=== PATIENT | female | born 1945 | race Caucasian/White ===

== ENCOUNTER → 2016-07-20 | Outpatient (REF) | payer MEDICARE ==
[~2016-07-20] MED LIST: /ACETCOD3T PO; /DEXA4TA OR; /PANT40TA OR; /TRIM10TA OR; /WARF25TA OR; /WARF5TA; /WARF5TA OR; ACET-654 PO; ACET500T2; ACET65TA OR; ACYC200CA PO; ALBUTEROL INH; AMBI5TAB OR; AMOX500T PO; ASPI81CH PO; BACITAB OR; BACITAB PO; BACITAB3 PO; BACT400T PO; BACT800T5 PO; CAPT12.5 PO; CEFT500T OR; COUM1TAB17 PO; CYCL1CAP2; DECADRON PO; DEMA100T; DEMA100T OR; DEMA100T PO; DEXA4TA; ELMIRON; ENABLEX OR; ENABLEX PO; GLIM1TAB OR; GLIMEPIRIDE PO; IMOD2CHW PO; K-TA10TA2 PO; KLOR10TA; LEVA250T; LEVO75TA2; LEVO75TA2 OR; LEVO75TA4 PO; MAAL600C PO; METO25TA PO; MORP20SO OR; MULTIVIT OR; MULTTAB PO; ONDA1TAB15 PO; PENT10CA OR; PERC5TAB6 PO; POTA20TA OR; POTA20TA2 OR; POTA20TA4 PO; POTASSIUM CITRATE1 PO; PREV30CA6 PO; PROCHLORPERAZINE PO; PROLOPRIM OR; PROT1TAB2 PO; RANI300T OR; RANITIDINE OR; SENO8.6T10 PO; SPIR25TA2; SPIR25TA2 OR; SPIR25TA2 PO; SPIROLACTONE OR; SYNT75TA OR; THERGRAN; THERGRAN OR; TORS100T PO; TYLE325T5 PO; UROCTAB2 PO; VALT500T OR; VELC3.5I; VIT D 2000 OR; VITAMIN; VITAMIN D; VITAMIN PO; WARF-18 PO; WARF1TAB PO; ZARO2.5T; ZEBE5TAB; ZEBE5TAB OR; ZOFR20TA PO; ZOFR4TAB3 PO; [UNRECOGNIZED DRUG - CODE] OR; [UNRECOGNIZED DRUG - REMARK]; [UNRECOGNIZED DRUG - REMARK]; [UNRECOGNIZED DRUG - REMARK]
[2016-07-20 12:14] LABS: MEAN CORPUSCULAR HEMOGLOBIN 31.1 pg (27.0-33.0); MEAN CORPUSCULAR HGB CONC 33.2 g/dl (32.0-36.5); MEAN CORPUSCULAR VOLUME 93.5 fl (80.0-96.0); WHITE BLOOD COUNT 3.5 K/mm3 (4.0-10.0)
[2016-07-20 12:23] LABS: ALBUMIN 3.7 GM/DL (3.2-5.2); ALBUMIN/GLOBULIN RATIO 1.19 (1.00-1.93); BILIRUBIN,TOTAL 0.4 MG/DL (0.2-1.0); CALCIUM LEVEL 8.6 MG/DL (8.8-10.2); CREATININE FOR GFR 1.18 MG/DL (0.55-1.02); FREE T4 1.26 NG/DL (0.76-1.46); GLOMERULAR FILTRATION RATE 48.5 (>45); POTASSIUM SERUM 4.4 MEQ/L (3.5-5.1); TOTAL PROTEIN 6.8 GM/DL (6.4-8.2)
== END ==
LOC: M SFHCPLAZ 09:16
PROVIDERS: ATTEND Nurse Practitioner Family
DX: N18.3 Chronic kidney disease, stage 3 (moderate) (principal); I13.0 Hypertensive heart and chronic kidney disease with heart failure and stage 1 through stage 4 chronic kidney disease, or unspecified chronic kidney disease; I50.9 Heart failure, unspecified; E03.9 Hypothyroidism, unspecified

== ENCOUNTER → 2016-07-27 | Outpatient (REF) | payer MEDICARE ==
[2016-07-27 14:36] LABS: IMMUNOGLOBULIN G 999 MG/DL (681-1648); TOTAL PROTEIN 6.9 GM/DL (6.4-8.2)
[2016-07-28 10:44] LABS: ALBUMIN % 56.5 % (55.8-66.1); GAMMA GLOBULIN % 13.3 % (11.1-18.8)
[2016-07-29 00:09] LABS: FREE KAPPA LIGHT CHAINS SERUM 54.61 mg/L (3.30-19.40); FREE LAMBDA LIGHT CHAINS SERUM 17.02 mg/L (5.71-26.30); KAPPA/LAMBDA RATIO SERUM 3.21 (0.26-1.65)
== END ==
LOC: M LAB REF 13:10
PROVIDERS: ATTEND Internal Medicine Medical Oncology
DX: C90.00 Multiple myeloma not having achieved remission (principal)

== ENCOUNTER → 2016-09-09 | Outpatient (CLI) | payer MEDICARE ==
--- NOTE | 2016-09-09 10:27 | REPMRS ---
Patient History The patient states she had a clinical breast exam in April 2016. Benign radio exam breast specimen of the left breast, May 21, 2014. Benign stereotatic loc for ea lesion of the left breast, May 21, 2014. Digital Mammo Screening Bilat: September 09, 2016 - Exam #: [id number] Bilateral CC and MLO view(s) were taken. Technologist: Estephanie Turner, Technologist Prior study comparison: March 29, 2014, left breast digital mammo diagnostic unilateral performed at [facility]. March 07, 2014, bilateral digital mammo screening bilat performed at [facility]. FINDINGS: There are scattered fibroglandular densities. There has been no change in the appearance of the mammogram from the prior studies. There is a mild amount of residual fibroglandular tissue which is fairly symmetric. There is no interval development of dominant mass, architectural distortion, or clustered microcalcification suggestive of malignancy. ASSESSMENT: BI-RADS/ACR category 1 mammogram. Negative. Recommendation Routine screening mammogram in 1 year (for women over age 40). This mammogram was interpreted with the aid of an FDA-approved computer-aided dectection system. Electronically Signed By: Alexis Alex MD 09/09/16 [id number]
== END ==
LOC: M RAD 09:16
PROVIDERS: ATTEND Obstetrics & Gynecology Gynecology
DX: Z12.31 Encounter for screening mammogram for malignant neoplasm of breast (principal)

== ENCOUNTER → 2016-11-30 | Outpatient (REF) | payer MEDICARE ==
[~2016-11-30] MED LIST changes: -ACET-654 PO; +ACET1TAB17 PO; +ACET50TAOT PO; -BACITAB3 PO; +ESTR1CRE PV; +MYRB50TA PO; +NYST1POW9 TOP; -ONDA1TAB15 PO; +ONDA4TAB5 PO; +PERC5TAB12 PO; -PERC5TAB6 PO; +RANI15TA PO
[2016-11-30 14:05] LABS: IMMUNOGLOBULIN G 958 MG/DL (681-1648); IMMUNOGLOBULIN M 24.1 MG/DL (40-230)
[2016-12-03 10:12] LABS: FREE KAPPA LIGHT CHAINS SERUM 85.3 mg/L (3.3-19.4); FREE LAMBDA LIGHT CHAINS SERUM 14.7 mg/L (5.7-26.3); KAPPA/LAMBDA RATIO SERUM 5.8 (0.26-1.65)
[2016-12-03 10:34] LABS: ALBUMIN 4.03 GM/DL (3.29-5.55); ALBUMIN % 57.5 % (55.8-66.1); GAMMA GLOBULIN % 13.5 % (11.1-18.8)
== END ==
LOC: M LAB REF 12:24
PROVIDERS: ATTEND Internal Medicine Medical Oncology
DX: C90.00 Multiple myeloma not having achieved remission (principal)

== ENCOUNTER → 2016-12-04 | Outpatient (REF) | payer MEDICARE ==
[2016-12-04 12:12] LABS: MEAN CORPUSCULAR HGB CONC 34.4 g/dl (32.0-36.5); MEAN CORPUSCULAR VOLUME 93.1 fl (80.0-96.0); RED CELL DISTRIBUTION WIDTH 13.7 % (11.5-14.5); WHITE BLOOD COUNT 4.2 K/mm3 (4.0-10.0)
[2016-12-04 12:30] LABS: CALCIUM LEVEL 8.8 MG/DL (8.8-10.2); CREATININE FOR GFR 1.25 MG/DL (0.55-1.02); GLOMERULAR FILTRATION RATE 45.4 (>45); POTASSIUM SERUM 3.9 MEQ/L (3.5-5.1)
== END ==
LOC: M SFHCPLAZ 09:51
PROVIDERS: ATTEND Family Medicine
DX: Z01.818 Encounter for other preprocedural examination (principal); C90.00 Multiple myeloma not having achieved remission; N18.3 Chronic kidney disease, stage 3 (moderate)

== ENCOUNTER → 2016-12-31 | Outpatient (CLI) | payer MEDICARE ==
[~2016-12-31] MED LIST changes: +GASTROGRAFIN SOLUTION 30ML (Q9963) As Ordered ONE; +ISOVUE-370 76% 100ML VIAL (Q9967) As Ordered ONE
--- NOTE | 2016-12-31 14:52 | REP ---
REASON FOR EXAM: Left adnexal cystic structures. Latest prior for comparison is a noncontrast-enhanced examination of 04/23/2015. Contrast utilized today: 100 mL Isovue-370. There are chronic changes in the lung bases, status quo. There are surgical clips in the gallbladder fossa from previous cholecystectomy. The liver and spleen are within normal limits. The pancreas, adrenal glands, and kidneys are within normal limits. The abdominal aorta is within normal limits. There are multiple borderline para-aortic lymph nodes which are unchanged from the prior exam. There is no significant change in appearance of bowel loops or their mesenteries. There is no free fluid or free air. CT PELVIS: There is a cluster of low-density masses seen in the left adnexa all having water Hounsfield unit readings and all essentially unchanged from the prior CT. There is no free fluid or free air. There is no pelvic sidewall adenopathy. The pelvic bowel loops are unremarkable. Bone window technique throughout the exam, shows the bones to be demineralized with multiple low-density lesions scattered throughout the axial skeleton. These are essentially unchanged in appearance when compared to the prior exam, but with some areas having increased peripheral sclerosis. IMPRESSION: There is no evidence of acute intra-abdominal or intrapelvic disease. Chronic changes and findings as described above. Skeletal lesions consistent with the patient's history of multiple myeloma. Signed by Roderick Tan DO 12/31/2016 04:27 P
== END ==
LOC: M RAD 11:07
PROVIDERS: ATTEND Obstetrics & Gynecology Gynecology
DX: N83.202 Unspecified ovarian cyst, left side (principal); Z85.79 Personal history of other malignant neoplasms of lymphoid, hematopoietic and related tissues
CPT/HCPCS: 74177; Q9963; Q9967

== ENCOUNTER → 2017-03-03 | Outpatient (REF) | payer MEDICARE ==
[~2017-03-03] MED LIST changes: -GASTROGRAFIN SOLUTION 30ML (Q9963) As Ordered ONE; -ISOVUE-370 76% 100ML VIAL (Q9967) As Ordered ONE
[2017-03-03 16:16] LABS: IMMUNOGLOBULIN G 1200 MG/DL (681-1648); IMMUNOGLOBULIN M 22.8 MG/DL (40-230); TOTAL PROTEIN 7.2 GM/DL (6.4-8.2)
[2017-03-04 12:53] LABS: ALBUMIN 3.91 GM/DL (3.29-5.55); ALBUMIN % 54.3 % (55.8-66.1); GAMMA GLOBULIN % 16.2 % (11.1-18.8)
[2017-03-06 00:08] LABS: FREE KAPPA LIGHT CHAINS SERUM 274.9 mg/L (3.3-19.4); FREE LAMBDA LIGHT CHAINS SERUM 13.8 mg/L (5.7-26.3); KAPPA/LAMBDA RATIO SERUM 19.92 (0.26-1.65)
== END ==
LOC: M LAB REF 15:11
PROVIDERS: ATTEND Internal Medicine Medical Oncology
DX: C90.00 Multiple myeloma not having achieved remission (principal)

== ENCOUNTER 2017-03-07 14:30 | Emergency (ER) | payer MEDICARE ==
[~2017-03-07] VITALS: Ht 149.9 cm; Wt 100.0 kg
[~2017-03-07 14:30] MED LIST changes: -ACET50TAOT PO; -ESTR1CRE PV; -MYRB50TA PO; -NYST1POW9 TOP; -RANI15TA PO
[2017-03-07] MEDS ORDERED: RANI15TA PO (14:40)
[2017-03-07 18:04] LABS: ALBUMIN 3.2 GM/DL (3.2-5.2); ALBUMIN/GLOBULIN RATIO 0.64 (1.00-1.93); ALKALINE PHOSPHATASE 92 U/L (45-117); ALT/SGPT 20 U/L (12-78); ANION GAP 6 MEQ/L (8-16); AST/SGOT 11 U/L (15-37); BASO % 0.4 % (0.0-1.0); BILIRUBIN,DIRECT 0.4 MG/DL (0.0-0.2); BILIRUBIN,TOTAL 1.1 MG/DL (0.2-1.0); BLOOD UREA NITROGEN 17 MG/DL (7-18); CALCIUM LEVEL 8.9 MG/DL (8.8-10.2); CARBON DIOXIDE LEVEL 32 MEQ/L (21-32); CHLORIDE LEVEL 99 MEQ/L (98-107); CREATININE FOR GFR 1.29 MG/DL (0.55-1.02); EOS # 0.1 10^3/uL (0.0-0.50); EOS % 0.7 % (0.0-3.0); GLOMERULAR FILTRATION RATE 43.6 (>45); GLUCOSE, FASTING 109 MG/DL (80-110); IMMATURE GRANULOCYTE % 0.4 % (0-0); LYMPH # 0.8 10^3/uL (1.5-4.5); LYMPH % 10.2 % (24.0-44.0); MEAN CORPUSCULAR HEMOGLOBIN 31.6 pg (27.0-33.0); MEAN CORPUSCULAR HGB CONC 33.6 g/dl (32.0-36.5); MONO # 0.8 10^3/uL (0.0-0.8); NEUTROPHILS # 5.9 10^3/uL (1.8-7.7); NEUTROPHILS % 78.3 % (36.0-66.0); PLATELET COUNT, AUTOMATED 166 10^3/uL (150-450); POTASSIUM SERUM 3.5 MEQ/L (3.5-5.1); RED CELL DISTRIBUTION WIDTH 12.9 % (11.5-14.5); SODIUM LEVEL 137 MEQ/L (136-145); TOTAL PROTEIN 8.2 GM/DL (6.4-8.2); WHITE BLOOD COUNT 7.5 10^3/uL (4.0-10.0)
[2017-03-07 18:05] LABS: ADD MANUAL DIFFER NO; DIFF SLIDE NUMBER 154
[2017-03-07 18:14] LABS: INR 3.27
--- NOTE | 2017-03-07 19:00 | REPUSA ---
Clinical history: Cough. Comparison: None. Findings: Frontal and lateral views of the chest were obtained. The mediastinum and cardiac silhouett e are within normal limits. There is mild pulmonary vascular congestion. No pleural effusion or pneum othorax is seen. The osseous structures and soft tissues are unremarkable. Impression: Mild congestive heart failure.
[2017-03-07] MEDS ORDERED: FUROSEMIDE 100 MG/10 ML VIAL (J1940) IV ONE (19:45)
[2017-03-07 21:14] VITALS: BP 100/63
--- NOTE | 2017-03-08 09:04 | ECGEPIP ---
Stationary ECG Study [facility] - ED Test Date: 2017-03-07 Pat Name: Peter HERNANDEZ Department: Room: - Gender: F Used Car Renovator: MEAGHAN : 1945 Requested By: SHANKAR MCGHEE PA-C. Order Number: [id number] Reading MD: Chad Lyles Measurements Intervals [place] Rate: 73 P: 32 MS: 121 QRS: -71 QRSD: 166 T: 4 QT: 425 QTc: 469 Interpretive Statements SINUS RHYTHM WITH FREQUENT SUPRAVENTRICULAR PREMATURE COMPLEXES RIGHT BUNDLE BRANCH BLOCK LEFT ANTERIOR FASCICULAR BLOCK NSTTW ABNORMALITIES SIMILAR TO 10/23/14 Electronically Signed On 03-08-2017 9:03:47 EDT by Chad Lyles
[2017-03-08] MEDS ORDERED: SPIR25TA2 PO (14:27)
[2017-03-08] MEDS ORDERED: NYST1POW9 TOP (14:27)
[2017-03-08] MEDS ORDERED: ESTR1CRE PV (14:27)
[2017-03-08] MEDS ORDERED: MYRB50TA PO (14:27)
[2017-03-08] MEDS ORDERED: ACET50TAOT PO (14:28)
== END 2017-03-07 21:30 | disposition home or self-care (01) ==
LOC: M ED 14:30
DX: J06.9 Acute upper respiratory infection, unspecified (principal)

== ENCOUNTER 2017-03-08 10:40 | Inpatient (IN) | payer MEDICARE ==
[~2017-03-08] VITALS: Ht 149.9 cm; Wt 92.8 kg
[~2017-03-08 10:40] MED LIST changes: +RANI15TA PO
--- NOTE | 2017-03-08 11:37 | REP ---
Chest two views HISTORY: Chest pain Comparison: 03/07/2017 A minimal increase in interstitial markings is present in the lungs. There is blunting of the right costophrenic angle due to pleural thickening or a small pleural effusion. The heart is upper limits of normal in size. The pulmonary vasculature is normal in appearance. The bony structure is intact. IMPRESSION: Findings consistent with interstitial edema. Signed by Cameron Carrasco MD 03/08/2017 11:29 A
[2017-03-08 11:54] LABS: BASO % 0.4 % (0.0-1.0); EOS # 0.1 10^3/uL (0.0-0.50); EOS % 1.9 % (0.0-3.0); IMMATURE GRANULOCYTE % 0.4 % (0-0); LYMPH # 0.7 10^3/uL (1.5-4.5); MEAN CORPUSCULAR HEMOGLOBIN 31.3 pg (27.0-33.0); MEAN CORPUSCULAR HGB CONC 33.1 g/dl (32.0-36.5); MEAN CORPUSCULAR VOLUME 94.7 fl (80.0-96.0); MONO # 0.8 10^3/uL (0.0-0.8); MONO % 10.4 % (0.0-5.0); NEUTROPHILS # 5.6 10^3/uL (1.8-7.7); NEUTROPHILS % 76.9 % (36.0-66.0); PLATELET COUNT, AUTOMATED 161 10^3/uL (150-450); RED CELL DISTRIBUTION WIDTH 12.8 % (11.5-14.5); WHITE BLOOD COUNT 7.2 10^3/uL (4.0-10.0)
[2017-03-08 12:08] LABS: INR 3.06
[2017-03-08 12:09] LABS: ADD MANUAL DIFFER NO; DIFF SLIDE NUMBER 188
[2017-03-08] MEDS ORDERED: ASPIRIN 81 MG CHEW TABLET PO ONE (12:15)
[2017-03-08 12:21] LABS: ANION GAP 5 MEQ/L (8-16); BLOOD UREA NITROGEN 18 MG/DL (7-18); CARBON DIOXIDE LEVEL 32 MEQ/L (21-32); CHLORIDE LEVEL 101 MEQ/L (98-107); CREATININE FOR GFR 1.27 MG/DL (0.55-1.02); GLOMERULAR FILTRATION RATE 44.4 (>45); GLUCOSE, FASTING 108 MG/DL (80-110); POTASSIUM SERUM 3.7 MEQ/L (3.5-5.1); SODIUM LEVEL 138 MEQ/L (136-145)
[2017-03-08 12:23] VITALS: O2SAT 96
[2017-03-08] MEDS ORDERED: metOLazone 5 MG TAB PO STA (12:59)
[2017-03-08] MEDS ORDERED: FUROSEMIDE 100 MG/10 ML VIAL (J1940) IV ONE (13:00)
[2017-03-08] MEDS: guaiFENesin ER 600 MG TAB PO SCH ×2 (14:16→21:21)
[2017-03-08] MEDS ORDERED: ESTR1CRE PV (14:27)
[2017-03-08] MEDS ORDERED: MYRB50TA PO (14:27)
[2017-03-08] MEDS ORDERED: SPIR25TA2 PO (14:27)
[2017-03-08] MEDS ORDERED: NYST1POW9 TOP (14:27)
[2017-03-08] MEDS ORDERED: ACET50TAOT PO (14:28)
[2017-03-08] MEDS ORDERED: ACETAMINOPHEN 500 MG TAB PO PRN (14:30)
--- NOTE | 2017-03-08 15:25 | HPE ---
DATE OF ADMISSION: 03/08/2017 PRIMARY CARE PROVIDER: Dr. Octavio Solano BENCH SCIENTIST: Dr. Bauer CHIEF COMPLAINT: Shortness of breath, cough. HISTORY OF PRESENT ILLNESS: The patient is a 71-year-old female who since has had progressively worsening dyspnea on exertion. She also has an associated cough which has worsened over the last 48 hours. She presented to the emergency room yesterday. She was seen and evaluated at that time, was diagnosed with an upper respiratory infection (URI) and was sent home. However, her symptoms persisted and the cough worsened, prompting her to present to the emergency room once again today. She denies any fevers or chills. She does have a positive sick contact with her cousin who has had bronchitis and been on antibiotics recently. She lives alone and walks with a walker at her baseline. She otherwise has no other specific complaints. She denies any orthopnea, paroxysmal nocturnal dyspnea (PND), worsening of lower extremity edema, and otherwise is in her usual state of health. While at rest, she complains of cough but otherwise has no shortness of breath and has no complaints whatsoever. PAST MEDICAL HISTORY: 1. Documented history of congestive heart failure (CHF). 2. Multiple myeloma, status post treatment, in remission. 3. Chronic kidney disease with a baseline creatinine of 1.1. 4. Deep vein thrombosis (DVT) times two on chronic anticoagulation. 5. Hypertension. 6. Vitamin D deficiency. 7. Hypothyroidism. 8. Cor pulmonale. 9. Peripheral neuropathy. 10. Gastroparesis. 11. Degenerative disc disease. 12. Clostridium (C) difficile colitis. ALLERGIES: GABAPENTIN. PAST SURGICAL HISTORY: 1. Total abdominal hysterectomy with bilateral salpingo-oophorectomy. 2. Cholecystectomy. 3. Appendectomy. 4. Colonoscopy and esophagogastroduodenoscopy (EGD). 5. Mandibulectomy. 6. Mole removal. 7. Bladder sling. SOCIAL HISTORY: No tobacco or alcohol. She lives alone. She is not working. FAMILY HISTORY: Noncontributory. REVIEW OF SYSTEMS: Negative other than in the history of present illness (HPI). HOME MEDICATIONS: - Nystatin 100,000 units per gram powder topically as needed for rash or itching - Coumadin 5 mg six days a week - Estradiol 42.5 grams cream vaginally twice a week - Myrbetriq 50 mg daily - multiple vitamin one tablet by mouth daily - acetaminophen 500 mg every six hours as needed for pain - Synthroid 75 mcg daily - Zofran 4 mg by mouth twice a day - potassium chloride 30 mEq twice a day - ranitidine 300 mg twice a day - spironolactone 25 mg daily - torsemide 100 mg by mouth twice a day - Coumadin 2.5 mg once a week PHYSICAL EXAMINATION: Temperature 98, pulse 79, respiratory rate 18, blood pressure 123/57, oxygen saturation 97% on room air. GENERAL: She is an obese, elderly, female laying in a stretcher at a 30 degree angle. She does not appear to be in any acute distress. HEENT: Chronic jaw deformity related to mandibulectomy. Moist mucous membranes. Possibly some mild elevation in central venous pressure. NEUROLOGIC: Cranial nerves II-XII are otherwise grossly intact. CARDIOVASCULAR: S1, S2, regular. No distant heart sounds are appreciated. RESPIRATORY: Actually quite clear. I do lay the patient flat and she is able to maintain her saturations of greater than 95%. ABDOMEN: Bowel sounds are present. The abdomen is soft and nontender. She does not have any urinary symptoms or suprapubic tenderness. EXTREMITIES: No clubbing or cyanosis. She has chronic hyperpigmentation of the pretibial areas bilaterally and chronic edema with peripheral neuropathy. LABORATORY STUDIES: WBC 7.2, hemoglobin 12.5, hematocrit 37.8, platelet count 161. Chemistry Panel: Sodium 138, potassium 3.7, chloride 101, bicarbonate 32, BUN 18, creatinine 1.2. One set of cardiac enzymes is negative. An INR is 3.0. IMAGING STUDIES: The patient had a chest x-ray concerning for interstitial edema. ASSESSMENT AND PLAN: This is a 71-year-old female presenting with shortness of breath and cough. PROBLEM LIST: 1. Shortness of breath and cough. Emergency room (ER) provider, based on the x-ray and her current symptoms, did have concern for possibly decompensated congestive heart failure (CHF). She is normally on torsemide 100 mg by mouth twice a day. She has received an additional dose of 80 IV Lasix at this time as well as 5 of metolazone. We will continue her home diuretic regimen, monitor her intake and output and daily weights. However, I think this is less likely the etiology for her symptoms. Her symptoms may be related to an upper respiratory infection (URI). She does not appear to be grossly septic. No obvious pneumonia. I suspect she may have a viral upper respiratory infection. We will check a viral PCR panel. We will admit her under observation status to the progressive care unit (PCU) and trend her cardiac enzymes. I will also check a thyroid-stimulating hormone (TSH) as well as a brain natruretic peptide (BNP) and trend. 2. Abnormal urinalysis (UA). She does not appear grossly septic. Likely asymptomatic bacteruria. Followup culture. 3. Hypothyroidism. Continue with Synthroid and check a TSH. 4. Gastroesophageal reflux disease. Continue with ranitidine. 5. Hypertension. Continue with torsemide and spironolactone. 6. History of deep vein thromboses (DVTs). Continue with Coumadin. She is actually supratherapeutic. I will continue her on the lower dose of her Coumadin 2.5 mg for now. She may need further titrating up if she remains in the hospital. 7. DVT prophylaxis. She is on Coumadin. DISPOSITION: The patient is admitted to the progressive care unit (PCU) under observation status to Dr. Nicholson's service. Physical therapy consult request will be made. Patient and family services (PFS) consult for possible home services. Should the patient continue to remain stable without significant abnormal findings, she may be able to be discharged as early as within the next 24-48 hours.
--- NOTE | 2017-03-08 16:13 | ECGEPIP ---
Stationary ECG Study [facility] - ED Test Date: 2017-03-08 Pat Name: Peter HERNANDEZ Department: Room: - Gender: F Shoe Folder: joesph : 1945 Requested By: KIESHA Le Order Number: [id number] Reading MD: Chad Lyles Measurements Intervals [place] Rate: 80 P: 60 WI: 169 QRS: -74 QRSD: 164 T: -6 QT: 399 QTc: 461 Interpretive Statements SINUS RHYTHM RIGHT BUNDLE BRANCH BLOCK LEFT ANTERIOR FASCICULAR BLOCK NSTTW ABNORMALITIES SIMILAR TO 03/07/17 Electronically Signed On 03-08-2017 16:13:24 EDT by Chad Lyles
[2017-03-08] MEDS: WARFARIN SOD 2.5 MG TAB PO SCH (18:15)
[2017-03-08] MEDS: ONDANSETRON 4 MG TAB (S0181) PO SCH (21:20)
[2017-03-08] MEDS: FAMOTIDINE 20 MG TAB PO SCH (21:20)
[2017-03-08] MEDS: TORSEMIDE 100 MG TAB PO SCH (21:21)
[2017-03-08] MEDS: POTASSIUM CHLORIDE 10 MEQ SR TABLET PO SCH (21:21)
[2017-03-08 22:01] VITALS: BP 106/58
[2017-03-09] VITALS: BP 122/78
[2017-03-09 04:00] VITALS: BP 106/62
[2017-03-09] MEDS: LEVOTHYROXINE 75MCG TABLET (0.075MG) PO SCH (06:07)
[2017-03-09 06:12] LABS: MEAN CORPUSCULAR HGB CONC 33.9 g/dl (32.0-36.5); MEAN CORPUSCULAR VOLUME 91.4 fl (80.0-96.0); RED CELL DISTRIBUTION WIDTH 12.6 % (11.5-14.5)
[2017-03-09 06:29] LABS: INR 2.68
[2017-03-09 06:31] LABS: ANION GAP 11 MEQ/L (8-16); BLOOD UREA NITROGEN 29 MG/DL (7-18); CALCIUM LEVEL 10.1 MG/DL (8.8-10.2); CARBON DIOXIDE LEVEL 34 MEQ/L (21-32); CHLORIDE LEVEL 90 MEQ/L (98-107); CREATININE FOR GFR 1.53 MG/DL (0.55-1.02); GLOMERULAR FILTRATION RATE 35.8 (>45); GLUCOSE, FASTING 131 MG/DL (80-110); POTASSIUM SERUM 2.9 MEQ/L (3.5-5.1); SODIUM LEVEL 135 MEQ/L (136-145)
[2017-03-09] MEDS: POTASSIUM CHLORIDE 10 MEQ SR TABLET PO SCH ×2 (07:02→21:22)
[2017-03-09] MEDS: KCL 10MEQ IN 100ML SWI (KRUN) 10 MEQ in APPROPRIATE DILUENT 1 EA IV SCH ×4 (07:03→08:00)
[2017-03-09 08:00] VITALS: BP 121/62
--- NOTE | 2017-03-09 08:08 | ECGEPIP ---
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
[2017-03-09] MEDS ORDERED: SPIRONOLACTONE 25 MG TAB PO SCH (09:00)
[2017-03-09] MEDS: ONDANSETRON 4 MG TAB (S0181) PO SCH ×2 (09:40→21:23)
[2017-03-09] MEDS: TORSEMIDE 100 MG TAB PO SCH (09:40)
[2017-03-09] MEDS: guaiFENesin ER 600 MG TAB PO SCH ×2 (09:41→21:23)
[2017-03-09] MEDS: FAMOTIDINE 20 MG TAB PO SCH ×2 (09:41→21:23)
[2017-03-09] MEDS ORDERED: ONDANSETRON 4MG/2ML VIAL (J2405) As Ordered ONE (10:37)
[2017-03-09] MEDS ORDERED: ONDANSETRON 4MG/2ML VIAL (J2405) IV SCH (11:00)
--- NOTE | 2017-03-09 11:36 | IPNPDOC ---
Subjective Date Seen The patient was seen on 03/09/17. Subjective Chief Complaint/HPI The patient is a 71-year-old female admitted with a reason for visit of Chest Pain. Events since last encounter found to have interstitial edema on CXR and diuresed aggressively with Furosemide and Metolazone. No with hyponatremia and hypokalemia. Has been receiving IV supplementation. c/o severe burning at IV Site which is contributing to nausea. States feels close to baseline with breathing. Daughter feels she is bear baseline. Skin: Denies: Rash, Lesions, Breakdown Pulmonary: Denies: Dyspnea, Cough Cardiovascular: Denies: Chest Pain, Palpitations, Orthopnea, Paroxysmal Noc. Dyspnea, Lt Headedness Gastrointestinal: Reports: Nausea, Denies: Vomiting, Abdominal Pain, Diarrhea, Constipation Genitourinary: Denies: Dysuria, Frequency, Incontinence, Retention Psych: Reports: Mood Normal, Denies: Depression, Memory Issues Objective Physical Examination General Exam: Positive: Alert, No Acute Distress Eye Exam: Positive: PERRLA, Conjunctiva & lids normal, EOMI, Negative: Sclera icteric Neck Exam: Positive: Supple, Negative: JVD, thyromegaly Chest Exam: Positive: Clear to auscultation, Normal air movement Heart Exam: Positive: Rate Normal, Regular Rhythm, Normal S1, Normal S2, Negative: Murmurs, Rubs Abdomen Exam: Positive: Normal bowel sounds, Soft, Negative: Tenderness, Hepatospenomegaly Psych Exam: Positive: Mental status NL, Mood NL, Oriented x 3 Assessment /Plan Problems (1) CHF (congestive heart failure) Status: Acute Problem Text: Echo 2015: EF 60% Aggressively diuresed with resolve. Repeat CXR today. (2) Hypokalemia Status: Acute Response to Treatment: Improving Problem Text: repeat BMP now. (3) Hyponatremia Problem Text: repeat BMP now. (4) Multiple myeloma Status: Chronic Response to Treatment: Stable (5) CKD (chronic kidney disease) stage 3, GFR 30-59 ml/min Status: Chronic Response to Treatment: Stable Problem Text: mild bump in Cr noted today due to diuresis. (6) DVT (deep venous thrombosis) Status: Chronic Response to Treatment: Stable Problem Text: hx of DVT x 2, on anticoagulation INR 2.68 (7) HTN (hypertension) Status: Chronic Response to Treatment: Stable (8) Hypothyroidism Status: Chronic Response to Treatment: Stable (9) Cor pulmonale Status: Chronic Response to Treatment: Stable (10) Gastroparesis Status: Chronic Response to Treatment: Stable Plan/VTE VTE Prophylaxis Ordered?: Yes (Warfarin) VS, I&O, 24H, Fishbone Vital Signs/I&O Vital Signs Date Time Temp Pulse Resp B/P (MAP) Pulse Ox O2 Delivery O2 Flow Rate FiO2 03/09/17 08:00 Nasal Cannula 2.0 03/09/17 04:00 96.8 119 18 106/62 (77) 93 03/08/17 11:00 96 Laboratory Data 24H LABS Laboratory Tests 2 03/08/17 11:31: Prothrombin Time 33.0H, Prothromb Time International Ratio 3.06, Activated Partial Thromboplast Time 49.4H 03/08/17 11:32: Immature Granulocyte % (Auto) 0.4H, White Blood Count 7.2, Red Blood Count 3.99L , Hemoglobin 12.5, Hematocrit 37.8, Mean Corpuscular Volume 94.7, Mean Corpuscular Hemoglobin 31.3, Mean Corpuscular Hemoglobin Concent 33.1, Red Cell Distribution Width 12.8, Platelet Count 161, Neutrophils (%) (Auto) 76.9H, Lymphocytes (%) (Auto) 10.0L, Monocytes (%) (Auto) 10.4H, Eosinophils (%) (Auto ) 1.9, Basophils (%) (Auto) 0.4, Neutrophils # (Auto) 5.6, Lymphocytes # (Auto) 0.7L, Monocytes # (Auto) 0.8, Eosinophils # (Auto) 0.1, Basophils # (Auto) 0.0, Immature Granulocyte # (Auto) 0.0, Nucleated Red Blood Cells % (auto) 0.0, Anion Gap 5L, Glomerular Filtration Rate 44.4L, Blood Urea Nitrogen 18, Creatinine 1.27H, Sodium Level 138, Potassium Level 3.7, Chloride Level 101, Carbon Dioxide Level 32, Calcium Level 9.0, Total Creatine Kinase 36, Creatine Kinase MB 1.0, Creatine Kinase MB Relative Index 2.77, Troponin I < 0.02, NT-Pro -B-Type Natriuretic Peptide 204H, Thyroid Stimulating Hormone (TSH) 1.520 03/08/17 16:56: Troponin I < 0.02 03/08/17 22:20: Troponin I < 0.02 03/09/17 05:29: Prothrombin Time 29.6H, Prothromb Time International Ratio 2.68, Anion Gap 11, Glomerular Filtration Rate 35.8L, Blood Urea Nitrogen 29#H, Creatinine 1.53H, Sodium Level 135L, Potassium Level 2.9#*L, Chloride Level 90L, Carbon Dioxide Level 34H, Calcium Level 10.1, Troponin I < 0.02, PA-Ggz-V-Type Natriuretic Peptide 271H 03/09/17 11:09: CBC/BMP Laboratory Tests 03/08/17 11:32 Red Blood Count 3.99 L, Mean Corpuscular Volume 94.7, Mean Corpuscular Hemoglobin 31.3, Mean Corpuscular Hemoglobin Concent 33.1, Red Cell Distribution Width 12.8, Neutrophils (%) (Auto) 76.9 H, Lymphocytes (%) (Auto) 10.0 L, Monocytes (%) (Auto) 10.4 H, Eosinophils (%) (Auto) 1.9, Basophils (%) ( Auto) 0.4, Neutrophils # (Auto) 5.6, Lymphocytes # (Auto) 0.7 L, Monocytes # ( Auto) 0.8, Eosinophils # (Auto) 0.1, Basophils # (Auto) 0.0, Calcium Level 9.0, Total Creatine Kinase 36 03/09/17 05:29 Red Blood Count 4.55, Mean Corpuscular Volume 91.4, Mean Corpuscular Hemoglobin 31.0, Mean Corpuscular Hemoglobin Concent 33.9, Red Cell Distribution Width 12.6 , Calcium Level 10.1 Microbiology Microbiology 03/08/17 Respiratory Virus Panel (PCR) ([facility]) - Final, Complete Rosenda Andrade [employer] PERSON Mar 09, 2017 11:36
[2017-03-09 11:54] LABS: CALCIUM LEVEL 9.6 MG/DL (8.8-10.2); CREATININE FOR GFR 1.85 MG/DL (0.55-1.02); GLOMERULAR FILTRATION RATE 28.8 (>45)
[2017-03-09 12:00] VITALS: BP 90/54
[2017-03-09 15:00] VITALS: BP 124/60
--- NOTE | 2017-03-09 15:43 | REP ---
Chest x-ray: Two views. History: Follow-up interstitial edema. Comparison study: March 08, 2017. Findings: There is slight blunting of the posterior pleural angles and the right lateral pleural angle consistent with small effusions. Mildly prominent heart is again seen. The aorta is tortuous as before. There are old healed rib fractures bilaterally. Surgical clips project over the upper lobes bilaterally on the frontal radiograph as before. Pulmonary vasculature is not increased. No pulmonary edema is evident. Impression: Mildly prominent heart and small bilateral effusions may reflect mild CHF. No interstitial edema pattern is seen today. Signed by Costa Kelly MD 03/09/2017 05:30 P
[2017-03-09] MEDS ORDERED: ONDANSETRON 4MG/2ML VIAL (J2405) IV PRN (16:30)
[2017-03-09] MEDS: WARFARIN SOD 2.5 MG TAB PO SCH (18:27)
[2017-03-09 22:00] VITALS: BP 119/64
[2017-03-10] MEDS: LEVOTHYROXINE 75MCG TABLET (0.075MG) PO SCH (05:27)
[2017-03-10 06:00] VITALS: BP 129/60
[2017-03-10 06:53] LABS: MEAN CORPUSCULAR HEMOGLOBIN 30.7 pg (27.0-33.0); MEAN CORPUSCULAR HGB CONC 33.7 g/dl (32.0-36.5); MEAN CORPUSCULAR VOLUME 90.9 fl (80.0-96.0); RED CELL DISTRIBUTION WIDTH 12.6 % (11.5-14.5); WHITE BLOOD COUNT 8.4 10^3/uL (4.0-10.0)
[2017-03-10 07:03] LABS: CALCIUM LEVEL 9.7 MG/DL (8.8-10.2); CREATININE FOR GFR 2.02 MG/DL (0.55-1.02); INR 2.07
[2017-03-10 07:20] LABS: POTASSIUM SERUM 2.8 MEQ/L (3.5-5.1)
[2017-03-10] MEDS ORDERED: NS 500 ML IV ONE (07:30)
--- NOTE | 2017-03-10 07:40 | IPNPDOC ---
Subjective Date Seen The patient was seen on 03/10/17. Subjective Chief Complaint/HPI The patient is a 71-year-old female admitted with a reason for visit of Chest Pain. Events since last encounter Feeling well. Denies c/o Constitutional: Denies: Chills, Fever, Night Sweats Pulmonary: Denies: Dyspnea, Cough Cardiovascular: Denies: Chest Pain, Palpitations, Orthopnea, Paroxysmal Noc. Dyspnea, Lt Headedness Gastrointestinal: Denies: Nausea, Vomiting, Abdominal Pain, Diarrhea, Constipation Objective Physical Examination General Exam: Positive: Alert, No Acute Distress Eye Exam: Positive: PERRLA, Conjunctiva & lids normal, EOMI, Negative: Sclera icteric Neck Exam: Positive: Supple, Negative: JVD, thyromegaly Chest Exam: Positive: Clear to auscultation, Normal air movement Heart Exam: Positive: Rate Normal, Regular Rhythm, Normal S1, Normal S2, Negative: Murmurs, Rubs Abdomen Exam: Positive: Normal bowel sounds, Soft, Negative: Tenderness, Hepatospenomegaly Psych Exam: Positive: Mental status NL, Mood NL, Oriented x 3 Assessment /Plan Problems (1) CHF (congestive heart failure) Status: Acute Problem Text: 03/10/17: CXR improved. Diuretics on hold due to hypokalemia and RONNIE. Echo 2015: EF 60% Aggressively diuresed with resolve. Repeat CXR today. (2) Hypokalemia Status: Acute Response to Treatment: Improving Problem Text: 03/10/17: RONNIE with hypokalemia. repeat BMP now. (3) Multiple myeloma Status: Chronic Response to Treatment: Stable (4) CKD (chronic kidney disease) stage 3, GFR 30-59 ml/min Status: Chronic Response to Treatment: Stable Problem Text: mild bump in Cr noted today due to diuresis. (5) DVT (deep venous thrombosis) Status: Chronic Response to Treatment: Stable Problem Text: hx of DVT x 2, on anticoagulation INR 2.68 (6) HTN (hypertension) Status: Chronic Response to Treatment: Stable (7) Hypothyroidism Status: Chronic Response to Treatment: Stable (8) Cor pulmonale Status: Chronic Response to Treatment: Stable (9) Gastroparesis Status: Chronic Response to Treatment: Stable (10) Hyponatremia Status: Resolved Problem Text: repeat BMP now. Plan/VTE VTE Prophylaxis Ordered?: Yes (Warfarin) VS, I&O, 24H, Fishbone Vital Signs/I&O Vital Signs Date Time Temp Pulse Resp B/P (MAP) Pulse Ox O2 Delivery O2 Flow Rate FiO2 03/10/17 06:00 99.0 89 17 129/60 (83) 91 Room Air 03/09/17 12:00 2.0 03/08/17 11:00 96 I&O- Last 24 Hours up to 6 AM 03/11/17 06:00 Output Total 150 ml Balance -150 ml Laboratory Data 24H LABS Laboratory Tests 2 03/09/17 11:09: Anion Gap 9, Glomerular Filtration Rate 28.8L, Blood Urea Nitrogen 33H, Creatinine 1.85H, Sodium Level 135L, Potassium Level 4.0#, Chloride Level 90L, Carbon Dioxide Level 36H, Calcium Level 9.6 03/10/17 06:27: Anion Gap 4L, Glomerular Filtration Rate 26.0L, Blood Urea Nitrogen 45H, Creatinine 2.02H, Sodium Level 136, Potassium Level 2.8#*L, Chloride Level 91L, Carbon Dioxide Level 41H, Calcium Level 9.7, Prothrombin Time 24.0H, Prothromb Time International Ratio 2.07 CBC/BMP Laboratory Tests 03/09/17 11:09 Calcium Level 9.6 03/10/17 06:27 Calcium Level 9.7, Red Blood Count 4.73, Mean Corpuscular Volume 90.9, Mean Corpuscular Hemoglobin 30.7, Mean Corpuscular Hemoglobin Concent 33.7, Red Cell Distribution Width 12.6 Microbiology Microbiology 03/08/17 Respiratory Virus Panel (PCR) ([facility]) - Final, Complete Rosenda Andrade [employer] Mar 10, 2017 07:40
[2017-03-10] MEDS: guaiFENesin ER 600 MG TAB PO SCH ×2 (08:52→20:32)
[2017-03-10] MEDS: POTASSIUM CHLORIDE 10 MEQ SR TABLET PO SCH ×5 (08:52→20:33)
[2017-03-10] MEDS: ONDANSETRON 4 MG TAB (S0181) PO SCH ×2 (08:52→20:32)
[2017-03-10] MEDS: FAMOTIDINE 20 MG TAB PO SCH ×2 (08:52→20:32)
[2017-03-10 12:19] LABS: CALCIUM LEVEL 9.1 MG/DL (8.8-10.2); CREATININE FOR GFR 1.76 MG/DL (0.55-1.02); GLOMERULAR FILTRATION RATE 30.5 (>45); POTASSIUM SERUM 2.8 MEQ/L (3.5-5.1)
[2017-03-10] MEDS: NYSTATIN 100,000 UNITS/GM TOPICAL PWD 15 GM TOP SCH ×2 (12:24→20:33)
[2017-03-10 14:00] VITALS: BP 129/71
--- NOTE | 2017-03-10 15:51 | REP ---
Left upper extremity venous ultrasound: History: Palpable hardness left antecubital fossa. Question venous thrombosis. Findings: The left internal jugular, left subclavian, left axillary, left brachial, left cephalic, and left basilic veins are anechoic and compressible in the left upper extremity on two-dimensional scanning. Color flow and spectral Doppler interrogation are unremarkable. In the area of hardness in the left antecubital fossa, there is a superficial vein thrombus. Impression: Superficial antecubital vein occlusive thrombus. Otherwise negative left upper extremity venous ultrasound. Signed by Costa Kelly MD 03/10/2017 05:02 P
[2017-03-10] MEDS ORDERED: ACETAMINOPH W/CODEINE #3 TAB UD PO PRN (17:00)
[2017-03-10 17:39] LABS: CALCIUM LEVEL 9.3 MG/DL (8.8-10.2); CREATININE FOR GFR 1.68 MG/DL (0.55-1.02); GLOMERULAR FILTRATION RATE 32.2 (>45); POTASSIUM SERUM 3.3 MEQ/L (3.5-5.1)
[2017-03-10] MEDS: WARFARIN SOD 2.5 MG TAB PO SCH (17:59)
[2017-03-10 22:00] VITALS: BP 146/67
[2017-03-11] MEDS: LEVOTHYROXINE 75MCG TABLET (0.075MG) PO SCH (05:55)
[2017-03-11] MEDS: POTASSIUM CHLORIDE 10 MEQ SR TABLET PO SCH ×2 (05:58→10:22)
[2017-03-11 06:00] VITALS: BP 147/83
[2017-03-11 06:30] LABS: MEAN CORPUSCULAR HEMOGLOBIN 31.3 pg (27.0-33.0); MEAN CORPUSCULAR HGB CONC 33.8 g/dl (32.0-36.5); MEAN CORPUSCULAR VOLUME 92.6 fl (80.0-96.0); RED CELL DISTRIBUTION WIDTH 12.7 % (11.5-14.5); WHITE BLOOD COUNT 9.2 10^3/uL (4.0-10.0)
[2017-03-11 06:41] LABS: INR 1.92
[2017-03-11 06:50] LABS: CREATININE FOR GFR 1.37 MG/DL (0.55-1.02); GLOMERULAR FILTRATION RATE 40.7 (>45); POTASSIUM SERUM 4.5 MEQ/L (3.5-5.1)
[2017-03-11] MEDS ORDERED: SPIRONOLACTONE 25 MG TAB PO SCH (09:00)
[2017-03-11] MEDS ORDERED: TORSEMIDE 100 MG TAB PO SCH (09:00)
[2017-03-11] MEDS: FAMOTIDINE 20 MG TAB PO SCH (10:23)
[2017-03-11] MEDS: ONDANSETRON 4 MG TAB (S0181) PO SCH (10:23)
[2017-03-11] MEDS: guaiFENesin ER 600 MG TAB PO SCH (10:23)
[2017-03-11] MEDS: NYSTATIN 100,000 UNITS/GM TOPICAL PWD 15 GM TOP SCH (10:24)
[2017-03-11 13:12] LABS: CALCIUM LEVEL 9.8 MG/DL (8.8-10.2); CREATININE FOR GFR 1.3 MG/DL (0.55-1.02); GLOMERULAR FILTRATION RATE 43.2 (>45); POTASSIUM SERUM 4.2 MEQ/L (3.5-5.1)
[2017-03-11 14:00] VITALS: BP 156/89
--- NOTE | 2017-03-11 16:23 | DSES ---
DATE OF ADMISSION: 03/10/2017 DATE OF DISCHARGE: 03/11/2017 ATTENDING PHYSICIAN: Dr. Estela Nicholson PRIMARY CARE PROVIDER: Dr. Octavio Solano HISTORY OF PRESENT ILLNESS: This is a 71-year-old female who presented to [facility] for progressively worsening dyspnea. She had an associated cough that worsened over 48 hours prior to presentation. The patient had presented to the emergency room the day before and was diagnosed with upper respiratory infections at home. However, symptoms persisted, cough worsened prompting her to present to the emergency department. Workup demonstrated concern for decompensated congestive heart failure. HOSPITAL COURSE: The patient was given 80 mg of IV Lasix along with 5 mg of metolazone and continued on her home diuretic regimen. She was admitted to the family medicine service. The patient subsequently developed some significant hypokalemia with her lowest potassium 2.8. She did have some mild hyponatremia and acute kidney injury secondary to the aggressive diuresis. Highest creatinine was 2.0 on 03/10/2017. The patient was given IV fluids normal saline times 500 mL. Repeat blood work showed significant improvement in both her electrolytes as well as her creatinine. The patient's diuretics were resumed today. The patient tolerated them well. Repeat basic metabolic panel (BMP) at noon today showed a blood urea nitrogen (BUN) of 34, creatinine 1.3 which is near the patient's baseline with a sodium of 137 and a potassium of 4.2. The patient feels that she is at baseline regarding her breathing and agrees to discharge home today. PHYSICAL EXAMINATION: VITAL SIGNS: Stable. She is afebrile. HEENT: Neck is supple without lymphadenopathy or jugular venous distention (JVD). CARDIOVASCULAR: Heart rate and rhythm are regular. PULMONARY: Lungs are clear. ABDOMEN: Soft and nontender with positive bowel sounds times all four quadrants. NEUROLOGIC: The patient is alert and oriented times three. PSYCHIATRIC: Affect is appropriate. Conversation is congruent. The patient maintains eye contact. DISCHARGE DIAGNOSIS: Decompensated diastolic congestive heart failure. SECONDARY DIAGNOSES: Include: 1. History of multiple myeloma. 2. Chronic kidney disease. 3. History of deep vein thrombosis (DVT). 4. History of hypertension. 5. Vitamin D deficiency. 6. Hypothyroidism. 7. Cor pulmonale. 8. Peripheral neuropathy. 9. Gastroparesis. 10. Degenerative disc disease. PLAN: The patient will be discharged home. She will followup with her primary care provider (PCP), Dr. Octavio Solano, within the next 5-7 days. She will maintain her appointment for her international normalized ratio (INR) on 03/15/2017. Diet is two-gram sodium. Activity is as tolerated. MEDICATIONS: - Tylenol 500 mg by mouth every six hours as needed for pain - Estrace 42.5 gram cream one dose vaginally twice per week - Synthroid 75 mcg one by mouth daily - Myrbetriq 50 mg by mouth daily - multivitamin one tablet daily - Nystatin powder topically as needed for rash or itching - Zofran 4 mg by mouth twice a day - potassium chloride 10 mEq by mouth twice a day - Zantac 150 mg two tablets by mouth twice a day - spironolactone 25 mg daily - torsemide 100 mg by mouth twice a day - warfarin sodium 5 mg by mouth six times per week - warfarin sodium 2.5 mg by mouth weekly The patient is discharged in stable and satisfactory condition with no further questions at the time of discharge.
== END 2017-03-11 15:10 | disposition home or self-care (01) | DRG 291 ==
LOC: M ED 10:40 → EDBD 10:40 → M ED INP 13:42 → M MSPAV 03-09 15:18 → OBSVTOIN 03-10 17:34
PROVIDERS: ADMIT Internal Medicine; ATTEND Family Medicine
DX: I13.0 Hypertensive heart and chronic kidney disease with heart failure and stage 1 through stage 4 chronic kidney disease, or unspecified chronic kidney disease (principal); I50.33 Acute on chronic diastolic (congestive) heart failure; C90.01 Multiple myeloma in remission; N17.9 Acute kidney failure, unspecified; E87.1 Hypo-osmolality and hyponatremia; E03.9 Hypothyroidism, unspecified; N18.3 Chronic kidney disease, stage 3 (moderate); E87.6 Hypokalemia; K21.9 Gastro-esophageal reflux disease without esophagitis; G62.9 Polyneuropathy, unspecified; Z88.8 Allergy status to other drugs, medicaments and biological substances; Z90.710 Acquired absence of both cervix and uterus; Z90.722 Acquired absence of ovaries, bilateral; Z90.49 Acquired absence of other specified parts of digestive tract; Z79.52 Long term (current) use of systemic steroids; Z86.718 Personal history of other venous thrombosis and embolism; Z79.899 Other long term (current) drug therapy

== ENCOUNTER → 2017-03-15 | Outpatient (REF) | payer MEDICARE ==
[~2017-03-15] MED LIST changes: +ACET50TAOT PO; +ESTR1CRE PV; +MYRB50TA PO; +NYST1POW9 TOP
[2017-03-15 15:44] LABS: CALCIUM LEVEL 8.2 MG/DL (8.8-10.2); CREATININE FOR GFR 0.98 MG/DL (0.55-1.02); GLOMERULAR FILTRATION RATE 59.9 (>45); POTASSIUM SERUM 4.1 MEQ/L (3.5-5.1)
[2017-03-15 15:50] LABS: INR 1.7
== END ==
LOC: M SFHCPLAZ 12:00
PROVIDERS: ATTEND Nurse Practitioner Family
DX: I11.9 Hypertensive heart disease without heart failure (principal); E87.6 Hypokalemia; I82.409 Acute embolism and thrombosis of unspecified deep veins of unspecified lower extremity; Z51.81 Encounter for therapeutic drug level monitoring; Z79.01 Long term (current) use of anticoagulants

== ENCOUNTER → 2017-04-02 | Outpatient (REF) | payer MEDICARE ==
[2017-04-02 13:14] LABS: INR 3.39
== END ==
LOC: M LAB REF 12:34
PROVIDERS: ATTEND Internal Medicine Medical Oncology
DX: C90.00 Multiple myeloma not having achieved remission (principal); D68.9 Coagulation defect, unspecified

== ENCOUNTER → 2017-04-09 | Outpatient (REF) | payer MEDICARE ==
[2017-04-09 11:49] LABS: BASO % 0.5 % (0.0-1.0); EOS # 0.2 10^3/uL (0.0-0.50); EOS % 5.4 % (0.0-3.0); IMMATURE GRANULOCYTE % 0.2 % (0-0); LYMPH # 0.9 10^3/uL (1.5-4.5); LYMPH % 22.4 % (24.0-44.0); MEAN CORPUSCULAR HEMOGLOBIN 31.1 pg (27.0-33.0); MEAN CORPUSCULAR HGB CONC 31.9 g/dl (32.0-36.5); MEAN CORPUSCULAR VOLUME 97.5 fl (80.0-96.0); MONO # 0.3 10^3/uL (0.0-0.8); MONO % 7.5 % (0.0-5.0); NEUTROPHILS # 2.6 10^3/uL (1.8-7.7); PLATELET COUNT, AUTOMATED 183 10^3/uL (150-450); RED CELL DISTRIBUTION WIDTH 13.6 % (11.5-14.5); WHITE BLOOD COUNT 4.1 10^3/uL (4.0-10.0)
[2017-04-09 12:09] LABS: INR 2.53
[2017-04-09 12:19] LABS: ALBUMIN 3.3 GM/DL (3.2-5.2); ALBUMIN/GLOBULIN RATIO 0.83 (1.00-1.93); BILIRUBIN,TOTAL 0.3 MG/DL (0.2-1.0); CREATININE FOR GFR 1.05 MG/DL (0.55-1.02); FREE T4 1.1 NG/DL (0.76-1.46); GLOMERULAR FILTRATION RATE 55.3 (>45); POTASSIUM SERUM 4.4 MEQ/L (3.5-5.1); TOTAL PROTEIN 7.3 GM/DL (6.4-8.2)
== END ==
LOC: M SFHCPLAZ 08:16
PROVIDERS: ATTEND Family Medicine
DX: Z51.81 Encounter for therapeutic drug level monitoring (principal); N18.3 Chronic kidney disease, stage 3 (moderate); E03.9 Hypothyroidism, unspecified; Z79.899 Other long term (current) drug therapy

== ENCOUNTER → 2017-05-03 | Outpatient (CLI) | payer MEDICARE ==
[~2017-05-03] MED LIST changes: +LIDOCAINE 2% MDV 20 ML VIAL As Ordered ONE; +ceFAZolin 1GM INJ (J0690 PER 500MG) As Ordered ONE
--- NOTE | 2017-05-19 10:23 | REPIR ---
DATE OF PROCEDURE: 05/03/2017 PREPROCEDURE DIAGNOSES: Multiple myeloma, history of deep venous thrombosis and pulmonary embolus. POSTPROCEDURE DIAGNOSES: Multiple myeloma, history of deep venous thrombosis and pulmonary embolus. PROCEDURE: Ultrasound and fluoroscopic guidance of a internal jugular vein Bard port placement with 19 cm catheter. SURGEON: Dr. Anthony Larkin. VOCATIONAL TECHNICAL EDUCATION TEACHER: Teri Carlos and Mariangel Jones. ANESTHESIA: Local with 20 mL of 2% lidocaine. FLUORO TIME: 0.1 minutes. CONTRAST: None. Ancef 1 gram preoperatively. COMPLICATIONS: None. DRAINS: None. SPECIMENS: None. IMPLANTS: Right internal jugular vein 19 cm Bard Port-a-Cath. INDICATION: The patient is a 71-year-old female with multiple myeloma who requires access for chemotherapy and will undergo placement of a port. Risks, benefits and alternative treatment options were discussed with the patient. DESCRIPTION OF PROCEDURE: The patient to the interventional radiology suite and placed supine on the table and then prepped and draped in the standard surgical fashion. Ultrasound was used to evaluate the right internal jugular vein which was noted to be easily compressible, widely patent and free of thrombus. Ultrasound was then used to guide cannulation of the right internal jugular vein with real-time concurrent visualization of entry of the micropuncture needle into the right internal jugular vein with a hard copy image preserved. The micropuncture wire was advanced through the micropuncture needle which was upsized to a micropuncture sheath. A J wire was advanced through the micropuncture sheath and fluoroscopic guidance was used to dilated the right internal jugular vein. The catheter was tunneled from the incision in the chest where a pocket was created to the right internal jugular vein entry site where a stab wound was created. The catheter was advanced through the introducer sheath which was peeled away and removed. The catheter was positioned under fluoroscopic guidance with the tip in the superior vena cava right atrial junction. The catheter was then cut to 19 cm and then attached to the port. The port was placed into the pocket accessed and then aspirated, noted to aspirate easily and flushed with heparinized saline. The incision in the chest was closed using #2-0 Vicryl suture and inverted in an interrupted fashion. The puncture wound of the right neck was closed using a #4-0 Monocryl in an inverted interrupted fashion. Steri-Strips and dressings were applied. The patient tolerated the procedure well. All instruments, sponge and needle counts were correct at the end of the case. There were no complications. Dr. Larkin was present for and directed the entire case. The patient was transferred to the holding area and subsequently discharged in stable condition. The right internal jugular vein Port-a-Cath is stable for use for access. RADIOLOGIC SUPERVISION AND INTERPRETATION: The ultrasound showed the right internal jugular vein to be widely patent, easily compressible and free of thrombus. Ultrasound was used to guide cannulation of the right internal jugular vein with real-time concurrent visualization of entry of the needle into the right internal jugular vein with a hard copy image preserved. Final fluoroscopic image showed the port to be in good position and good alignment with no pneumothorax or hemothorax noted with the tip in the superior vena cava right atrial junction.
== END | disposition home or self-care (01) ==
LOC: M IRPRO 13:18
PROVIDERS: ATTEND Internal Medicine Medical Oncology
DX: C34.90 Malignant neoplasm of unspecified part of unspecified bronchus or lung (principal); C90.00 Multiple myeloma not having achieved remission; Z86.718 Personal history of other venous thrombosis and embolism; Z86.711 Personal history of pulmonary embolism
CPT/HCPCS: 36561; 76937; 77001; C1788; C1894; J0690

== ENCOUNTER → 2017-05-05 | Outpatient (REF) | payer MEDICARE ==
[~2017-05-05] MED LIST changes: -LIDOCAINE 2% MDV 20 ML VIAL As Ordered ONE; -ceFAZolin 1GM INJ (J0690 PER 500MG) As Ordered ONE
== END ==
LOC: M LAB REF 17:19
PROVIDERS: ATTEND Internal Medicine Medical Oncology
DX: C90.00 Multiple myeloma not having achieved remission (principal)

== ENCOUNTER → 2017-05-28 | Outpatient (CLI) | payer MEDICARE | LOC: M RAD 15:34 | DX: C90.00 Multiple myeloma not having achieved remission (principal); R07.81 Pleurodynia | CPT/HCPCS: 71250 ==

== ENCOUNTER → 2017-06-30 | Outpatient (REF) | payer MEDICARE ==
[2017-06-30 11:33] LABS: IMMUNOGLOBULIN A 26.6 MG/DL (70-400); IMMUNOGLOBULIN G 433 MG/DL (681-1648); TOTAL PROTEIN 5.7 GM/DL (6.4-8.2)
[2017-06-30 12:25] LABS: IMMUNOGLOBULIN M 9.49 MG/DL (40-230)
[2017-07-01 11:32] LABS: ALBUMIN 3.29 GM/DL (3.29-5.55); ALBUMIN % 57.8 % (55.8-66.1); ALPHA-1-GLOBULIN % 7.3 % (2.9-4.9); ALPHA-1-GLOBULINS 0.42 GM/DL (0.17-0.41); ALPHA-2-GLOBULINS 0.84 GM/DL (0.42-0.99); ALPHA-2-GLOBULINS % 14.7 % (7.1-11.8); BETA-1-GLOBULINS 0.43 GM/DL (0.28-0.60); BETA-1-GLOBULINS % 7.6 % (4.7-7.2); BETA-2-GLOBULINS 0.27 GM/DL (0.19-0.55)
[2017-07-01 11:33] LABS: BETA-2-GLOBULINS % 4.8 % (3.2-6.5); GAMMA GLOBULIN % 7.8 % (11.1-18.8); GAMMA GLOBULINS 0.44 GM/DL (0.65-1.58)
[2017-07-02 12:49] LABS: FREE LAMBDA LIGHT CHAINS SERUM 7.4
[2017-07-02 12:50] LABS: FREE KAPPA LIGHT CHAINS SERUM 21.3; KAPPA/LAMBDA RATIO SERUM 2.88
== END ==
LOC: M LAB REF 10:06
DX: C90.00 Multiple myeloma not having achieved remission (principal)
CPT/HCPCS: 84165

== ENCOUNTER → 2017-06-30 | Outpatient (REF) | payer MEDICARE ==
[2017-06-30 10:18] LABS: INR 1.72; PROTHROMBIN TIME 20.7 SECONDS (12.4-14.5)
== END ==
LOC: M LAB REF 09:50
DX: Z51.81 Encounter for therapeutic drug level monitoring (principal)
CPT/HCPCS: 84165; 85610

== ENCOUNTER → 2017-07-05 | Outpatient (REF) | payer MEDICARE ==
[2017-07-05 17:18] LABS: ALBUMIN 3.4 GM/DL (3.2-5.2); ALBUMIN/GLOBULIN RATIO 1.21 (1.00-1.93); ALKALINE PHOSPHATASE 107 U/L (45-117); ALT/SGPT 34 U/L (12-78); ANION GAP 6 MEQ/L (8-16); AST/SGOT 14 U/L (7-37); BILIRUBIN,TOTAL 0.9 MG/DL (0.2-1.0); BLOOD UREA NITROGEN 20 MG/DL (7-18); CALCIUM LEVEL 8.7 MG/DL (8.8-10.2); CARBON DIOXIDE LEVEL 34 MEQ/L (21-32); CHLORIDE LEVEL 103 MEQ/L (98-107); CREATININE FOR GFR 1.31 MG/DL (0.55-1.30); GLOMERULAR FILTRATION RATE 42.9 (>45); GLUCOSE, FASTING 97 MG/DL (70-100); POTASSIUM SERUM 3.9 MEQ/L (3.5-5.1); SODIUM LEVEL 143 MEQ/L (136-145); TOTAL PROTEIN 6.2 GM/DL (6.4-8.2)
[2017-07-05 17:47] LABS: BASO # 0.1 10^3/uL (0.0-0.2); BASO % 2.9 % (0.0-1.0); EOS # 0.2 10^3/uL (0.0-0.50); EOS % 4.8 % (0.0-3.0); HEMATOCRIT 38.4 % (36.0-47.0); HEMOGLOBIN 12.6 g/dl (12.0-16.0); LYMPH # 1.2 10^3/uL (1.5-4.5); LYMPH % 37.7 % (24.0-44.0); MEAN CORPUSCULAR HEMOGLOBIN 31.1 pg (27.0-33.0); MEAN CORPUSCULAR HGB CONC 32.8 g/dl (32.0-36.5); MEAN CORPUSCULAR VOLUME 94.8 fl (80.0-96.0); MONO # 0.5 10^3/uL (0.0-0.8); MONO % 14.8 % (0.0-5.0); NEUTROPHILS # 1.2 10^3/uL (1.8-7.7); NEUTROPHILS % 39.8 % (36.0-66.0); PLATELET COUNT, AUTOMATED 153 10^3/uL (150-450); RED BLOOD COUNT 4.05 10^6/uL (4.00-5.40); RED CELL DISTRIBUTION WIDTH 17.5 % (11.5-14.5); WHITE BLOOD COUNT 3.1 10^3/uL (4.0-10.0)
== END ==
LOC: M SFHCPLAZ 14:46
DX: C90.00 Multiple myeloma not having achieved remission (principal); R05 Cough; J06.9 Acute upper respiratory infection, unspecified; Z51.81 Encounter for therapeutic drug level monitoring; Z79.01 Long term (current) use of anticoagulants
CPT/HCPCS: 80053

== ENCOUNTER → 2017-07-06 | Outpatient (CLI) | payer MEDICARE | LOC: M RAD 10:37 | DX: R05 Cough (principal) | CPT/HCPCS: 71046 ==

== ENCOUNTER → 2017-08-04 | Outpatient (REF) | payer MEDICARE ==
[2017-08-04 15:15] LABS: IMMUNOGLOBULIN A 29.6 MG/DL (70-400); IMMUNOGLOBULIN G 347 MG/DL (681-1648); TOTAL PROTEIN 5.3 GM/DL (6.4-8.2)
[2017-08-04 15:32] LABS: IMMUNOGLOBULIN M 5.42 MG/DL (40-230)
[2017-08-05 11:32] LABS: ALBUMIN 3.16 GM/DL (3.29-5.55); ALBUMIN % 59.6 % (55.8-66.1); ALPHA-1-GLOBULIN % 6.7 % (2.9-4.9); ALPHA-1-GLOBULINS 0.36 GM/DL (0.17-0.41); ALPHA-2-GLOBULINS 0.84 GM/DL (0.42-0.99); ALPHA-2-GLOBULINS % 15.9 % (7.1-11.8); BETA-1-GLOBULINS 0.37 GM/DL (0.28-0.60); BETA-2-GLOBULINS 0.23 GM/DL (0.19-0.55); BETA-2-GLOBULINS % 4.4 % (3.2-6.5); GAMMA GLOBULIN % 6.4 % (11.1-18.8)
[2017-08-05 11:33] LABS: GAMMA GLOBULINS 0.34 GM/DL (0.65-1.58)
[2017-08-07 00:06] LABS: FREE KAPPA LIGHT CHAINS SERUM 15.7 mg/L (3.3-19.4); FREE LAMBDA LIGHT CHAINS SERUM 6.7 mg/L (5.7-26.3); KAPPA/LAMBDA RATIO SERUM 2.34 (0.26-1.65)
== END ==
LOC: M LAB REF 13:38
DX: C90.00 Multiple myeloma not having achieved remission (principal)
CPT/HCPCS: 84165

== ENCOUNTER 2017-09-06 10:54 | Inpatient (IN) | payer MEDICARE ==
[2017-09-06 12:01] LABS: BASO % 0.5 % (0.0-1.0); EOS # 0.1 10^3/uL (0.0-0.50); EOS % 1.6 % (0.0-3.0); HEMATOCRIT 30.2 % (36.0-47.0); IMMATURE GRANULOCYTE % 0.3 % (0-3.0); LYMPH # 0.8 10^3/uL (1.5-4.5); LYMPH % 21.7 % (24.0-44.0); MEAN CORPUSCULAR HEMOGLOBIN 33.1 pg (27.0-33.0); MEAN CORPUSCULAR HGB CONC 33.1 g/dl (32.0-36.5); MONO # 0.2 10^3/uL (0.0-0.8); MONO % 6.2 % (0.0-5.0); NEUTROPHILS # 2.7 10^3/uL (1.8-7.7); NEUTROPHILS % 69.7 % (36.0-66.0); PLATELET COUNT, AUTOMATED 115 10^3/uL (150-450); RED BLOOD COUNT 3.02 10^6/uL (4.00-5.40); RED CELL DISTRIBUTION WIDTH 16.2 % (11.5-14.5); WHITE BLOOD COUNT 3.9 10^3/uL (4.0-10.0)
[2017-09-06 12:15] LABS: ALBUMIN 2.5 GM/DL (3.2-5.2); ALBUMIN/GLOBULIN RATIO 0.89 (1.00-1.93); ALKALINE PHOSPHATASE 77 U/L (45-117); ALT/SGPT 29 U/L (12-78); ANION GAP 7 MEQ/L (8-16); AST/SGOT 30 U/L (7-37); BILIRUBIN,DIRECT 0.3 MG/DL (0.0-0.2); BILIRUBIN,TOTAL 1.1 MG/DL (0.2-1.0); BLOOD UREA NITROGEN 23 MG/DL (7-18); CALCIUM LEVEL 8.2 MG/DL (8.8-10.2); CARBON DIOXIDE LEVEL 30 MEQ/L (21-32); CHLORIDE LEVEL 102 MEQ/L (98-107); CPK CREATINE PHOSPHOKINASE 39 U/L (26-192); CREATININE FOR GFR 1.54 MG/DL (0.55-1.30); GLOMERULAR FILTRATION RATE 35.6 (>45); GLUCOSE, FASTING 107 MG/DL (70-100); POTASSIUM SERUM 4.5 MEQ/L (3.5-5.1); SODIUM LEVEL 139 MEQ/L (136-145); TOTAL PROTEIN 5.3 GM/DL (6.4-8.2); TROPONIN I < 0.02 NG/ML (< 0.10)
[2017-09-06 12:18] LABS: CK-MB VALUE MASS < 1.0 NG/ML (<3.6); MB/CK RELATIVE INDEX 2.56 (< OR =4); NT-PRO BNP 719 PG/ML (<125)
[2017-09-06] MEDS ORDERED: ISOVUE-370 76% 100ML VIAL (Q9967) As Ordered (12:53)
[2017-09-06 13:19] LABS: ABG BASE EXCESS 6.1 (-2.0-2.0); ABG HCO3 29.3 MEQ/L (22.0-26.0); ABG O2 SATURATION 88.1 % (95.0-99.0); ABG PARTIAL PRESSURE CO2 37.3 mmHg (35.0-45.0); ABG PARTIAL PRESSURE O2 56.7 mmHg (75.0-100.0); ABG STANDARD HCO3 29.8 MEQ/L (22.0-26.0); ABG TOTAL CO2 30.4 MEQ/L (23.0-31.0); ABG pH (ARTERIAL) 7.513 UNITS (7.350-7.450)
[2017-09-06 13:25] LABS: LACTIC ACID SEPSIS PROTOCOL 2.8 MMOL/L (0.4-2.0)
[2017-09-06] MEDS: NS 1,000 ML IV (13:32)
[2017-09-06] MEDS: FUROSEMIDE 100 MG/10 ML VIAL (J1940) IV (14:55)
[2017-09-06] MEDS: PIPERACILLIN/TAZOBACTAM SOD 2.25 GM in D5W MINI-BAG PLUS 50 ML IV (15:50)
[2017-09-06 16:49] LABS: APPEARANCE, URINE CLEAR (CLEAR); BACTERIA, URINE AUTO 2+ (NEGATIVE); BILIRUBIN, URINE AUTO NEGATIVE (NEGATIVE); BLOOD, URINE BLOOD NEGATIVE (NEGATIVE); COLOR, URINE STRAW (YELLOW); GLUCOSE, URINE (UA) AUTO NEGATIVE (NEGATIVE); KETONE, URINE AUTO NEGATIVE (NEGATIVE); LEUKOCYTE ESTERASE, URINE AUTO NEGATIVE (NEGATIVE); NITRITE, URINE AUTO NEGATIVE (NEGATIVE); PROTEIN, URINE AUTO NEGATIVE (NEGATIVE); RBC, URINE AUTO 1 /HPF (0-3); SPECIFIC GRAVITY URINE AUTO 1.009 (1.002-1.035); SQUAMOUS EPITHELIAL CELL UR AU 0 /HPF (0-6); UROBILINOGEN, URINE AUTO 0.2 mg/dL (0.0-2.0); WBC, URINE AUTO 3 /HPF (0-3)
[2017-09-06] MEDS ORDERED: TORSEMIDE 100 MG TAB PO (17:00)
[2017-09-06] MEDS ORDERED: ACETAMINOPHEN TAB 650MG DOSE (2X325MG) PO (17:00)
[2017-09-06] MEDS ORDERED: WARFARIN SOD 2.5 MG TAB PO (17:00)
[2017-09-06] MEDS ORDERED: ACETAMINOPHEN 500 MG TAB PO (17:15)
[2017-09-06] MEDS: AZITHROMYCIN INJ 500 MG, VIAL MATE ADAPTER 1 EACH in D5W 250 ML IV (18:13)
[2017-09-06 18:29] LABS: INR 2.09; PARTIAL THROMBOPLASTIN TIME 33.3 SECONDS (26.8-37.9); PROTHROMBIN TIME 24.2 SECONDS (12.4-14.5)
[2017-09-06] MEDS: metOLazone 2.5 MG TAB PO (19:28)
[2017-09-06 20:08] LABS: ANION GAP 7 MEQ/L (8-16); BLOOD UREA NITROGEN 21 MG/DL (7-18); CALCIUM LEVEL 7.7 MG/DL (8.8-10.2); CARBON DIOXIDE LEVEL 28 MEQ/L (21-32); CHLORIDE LEVEL 106 MEQ/L (98-107); CREATININE FOR GFR 1.56 MG/DL (0.55-1.30); GLUCOSE, FASTING 184 MG/DL (70-100); POTASSIUM SERUM 3.6 MEQ/L (3.5-5.1); SODIUM LEVEL 141 MEQ/L (136-145)
[2017-09-06] MEDS: LevoFLOXacin IV 250 MG in APPROPRIATE DILUENT 1 EA IV (20:50)
[2017-09-06] MEDS: ONDANSETRON 4 MG TAB (S0181) PO (20:50)
[2017-09-06] MEDS: FAMOTIDINE 20 MG TAB PO (20:50)
[2017-09-06] MEDS: ACYCLOVIR 200 MG CAPSULE PO (20:50)
[2017-09-06 21:54] LABS: CK-MB VALUE MASS < 1.0 NG/ML (<3.6); CPK CREATINE PHOSPHOKINASE 19 U/L (26-192); MB/CK RELATIVE INDEX 5.26 (< OR =4); TROPONIN I < 0.02 NG/ML (< 0.10)
[2017-09-06] MEDS ORDERED: SLF 3 ML SYR IV (22:15)
[2017-09-07 05:27] LABS: BASO % 0.3 % (0.0-1.0); EOS # 0.1 10^3/uL (0.0-0.50); HEMATOCRIT 27.7 % (36.0-47.0); HEMOGLOBIN 9.1 g/dl (12.0-15.5); LYMPH # 0.5 10^3/uL (1.5-4.5); LYMPH % 18.2 % (24.0-44.0); MEAN CORPUSCULAR HEMOGLOBIN 32.3 pg (27.0-33.0); MEAN CORPUSCULAR HGB CONC 32.9 g/dl (32.0-36.5); MEAN CORPUSCULAR VOLUME 98.2 fl (80.0-96.0); MONO # 0.2 10^3/uL (0.0-0.8); MONO % 5.4 % (0.0-5.0); NEUTROPHILS # 2.1 10^3/uL (1.8-7.7); NEUTROPHILS % 72.1 % (36.0-66.0); PLATELET COUNT, AUTOMATED 101 10^3/uL (150-450); RED BLOOD COUNT 2.82 10^6/uL (4.00-5.40); RED CELL DISTRIBUTION WIDTH 15.9 % (11.5-14.5)
[2017-09-07 05:43] LABS: INR 2.26; PROTHROMBIN TIME 25.8 SECONDS (12.4-14.5)
[2017-09-07 05:45] LABS: ANION GAP 7 MEQ/L (8-16); BLOOD UREA NITROGEN 20 MG/DL (7-18); CALCIUM LEVEL 8.1 MG/DL (8.8-10.2); CARBON DIOXIDE LEVEL 33 MEQ/L (21-32); CHLORIDE LEVEL 101 MEQ/L (98-107); CPK CREATINE PHOSPHOKINASE 13 U/L (26-192); CREATININE FOR GFR 1.41 MG/DL (0.55-1.30); GLOMERULAR FILTRATION RATE 39.4 (>45); GLUCOSE, FASTING 102 MG/DL (70-100); MAGNESIUM LEVEL 2.4 MG/DL (1.8-2.4); POTASSIUM SERUM 2.9 MEQ/L (3.5-5.1); SODIUM LEVEL 141 MEQ/L (136-145); TROPONIN I < 0.02 NG/ML (< 0.10)
[2017-09-07 05:46] LABS: CK-MB VALUE MASS < 1.0 NG/ML (<3.6); MB/CK RELATIVE INDEX 7.69 (< OR =4)
[2017-09-07] MEDS: LEVOTHYROXINE 75MCG TABLET (0.075MG) PO (06:21)
[2017-09-07] MEDS: SLF 3 ML SYR IV ×3 (06:22→21:07)
[2017-09-07] MEDS: POTASSIUM CHLORIDE 10 MEQ SR TABLET PO ×2 (06:22→09:58)
[2017-09-07] MEDS: SPIRONOLACTONE 25 MG TAB PO ×2 (09:00→09:57)
[2017-09-07 09:45] LABS: ANION GAP 7 MEQ/L (8-16); BLOOD UREA NITROGEN 20 MG/DL (7-18); CALCIUM LEVEL 7.6 MG/DL (8.8-10.2); CARBON DIOXIDE LEVEL 33 MEQ/L (21-32); CHLORIDE LEVEL 101 MEQ/L (98-107); CREATININE FOR GFR 1.34 MG/DL (0.55-1.30); GLOMERULAR FILTRATION RATE 41.7 (>45); GLUCOSE, FASTING 98 MG/DL (70-100); SODIUM LEVEL 141 MEQ/L (136-145)
[2017-09-07] MEDS: ACYCLOVIR 200 MG CAPSULE PO ×2 (09:57→21:07)
[2017-09-07] MEDS: MULTIVITAMINS/MINERALS THERAP 1 TAB PO (09:57)
[2017-09-07] MEDS: FAMOTIDINE 20 MG TAB PO ×2 (09:58→21:07)
[2017-09-07] MEDS: TORSEMIDE 100 MG TAB PO ×2 (09:58→16:16)
[2017-09-07] MEDS: ONDANSETRON 4 MG TAB (S0181) PO ×2 (10:14→21:07)
[2017-09-07 14:22] LABS: CK-MB VALUE MASS < 1.0 NG/ML (<3.6); CPK CREATINE PHOSPHOKINASE 16 U/L (26-192); MB/CK RELATIVE INDEX 6.25 (< OR =4); TROPONIN I < 0.02 NG/ML (< 0.10)
[2017-09-07] MEDS: WARFARIN SOD 2.5 MG TAB PO (16:16)
[2017-09-07] MEDS: LevoFLOXacin IV 250 MG in APPROPRIATE DILUENT 1 EA IV (21:07)
[2017-09-08 05:05] LABS: BASO % 0.3 % (0.0-1.0); EOS # 0.1 10^3/uL (0.0-0.50); EOS % 3.7 % (0.0-3.0); HEMOGLOBIN 9.4 g/dl (12.0-15.5); IMMATURE GRANULOCYTE % 0.3 % (0-3.0); LYMPH # 0.6 10^3/uL (1.5-4.5); LYMPH % 17.5 % (24.0-44.0); MEAN CORPUSCULAR HGB CONC 33.6 g/dl (32.0-36.5); MEAN CORPUSCULAR VOLUME 98.2 fl (80.0-96.0); MONO # 0.2 10^3/uL (0.0-0.8); MONO % 6.5 % (0.0-5.0); NEUTROPHILS # 2.6 10^3/uL (1.8-7.7); NEUTROPHILS % 71.7 % (36.0-66.0); PLATELET COUNT, AUTOMATED 112 10^3/uL (150-450); RED BLOOD COUNT 2.85 10^6/uL (4.00-5.40); RED CELL DISTRIBUTION WIDTH 15.6 % (11.5-14.5); WHITE BLOOD COUNT 3.6 10^3/uL (4.0-10.0)
[2017-09-08 05:22] LABS: ANION GAP 7 MEQ/L (8-16); BLOOD UREA NITROGEN 19 MG/DL (7-18); CALCIUM LEVEL 7.8 MG/DL (8.8-10.2); CARBON DIOXIDE LEVEL 34 MEQ/L (21-32); CHLORIDE LEVEL 99 MEQ/L (98-107); CREATININE FOR GFR 1.41 MG/DL (0.55-1.30); GLOMERULAR FILTRATION RATE 39.4 (>45); GLUCOSE, FASTING 126 MG/DL (70-100); MAGNESIUM LEVEL 2.3 MG/DL (1.8-2.4); POTASSIUM SERUM 2.8 MEQ/L (3.5-5.1); SODIUM LEVEL 140 MEQ/L (136-145)
[2017-09-08 05:25] LABS: PROTHROMBIN TIME 22.4 SECONDS (12.4-14.5)
[2017-09-08] MEDS: LEVOTHYROXINE 75MCG TABLET (0.075MG) PO (06:27)
[2017-09-08] MEDS: SLF 3 ML SYR IV ×3 (06:28→20:39)
[2017-09-08] MEDS: KCL 10MEQ/100ML SWI (KRUN) 10 MEQ in APPROPRIATE DILUENT 1 EA IV ×8 (06:28→18:49)
[2017-09-08] MEDS: ONDANSETRON 4 MG TAB (S0181) PO ×2 (08:54→20:39)
[2017-09-08] MEDS: ACYCLOVIR 200 MG CAPSULE PO ×2 (08:54→20:39)
[2017-09-08] MEDS: MULTIVITAMINS/MINERALS THERAP 1 TAB PO (08:54)
[2017-09-08] MEDS: FAMOTIDINE 20 MG TAB PO ×2 (08:54→20:39)
[2017-09-08] MEDS: TORSEMIDE 100 MG TAB PO ×2 (08:54→17:25)
[2017-09-08] MEDS: SPIRONOLACTONE 25 MG TAB PO (08:55)
[2017-09-08 14:33] LABS: ANION GAP 7 MEQ/L (8-16); BLOOD UREA NITROGEN 19 MG/DL (7-18); CALCIUM LEVEL 8.1 MG/DL (8.8-10.2); CARBON DIOXIDE LEVEL 34 MEQ/L (21-32); CHLORIDE LEVEL 98 MEQ/L (98-107); CREATININE FOR GFR 1.42 MG/DL (0.55-1.30); GLUCOSE, FASTING 110 MG/DL (70-100); POTASSIUM SERUM 3.3 MEQ/L (3.5-5.1); SODIUM LEVEL 139 MEQ/L (136-145)
[2017-09-08] MEDS: WARFARIN SOD 5 MG TAB PO (17:25)
[2017-09-08] MEDS: LevoFLOXacin IV 250 MG in APPROPRIATE DILUENT 1 EA IV (20:39)
[2017-09-09] MEDS: SLF 3 ML SYR IV ×3 (05:42→20:15)
[2017-09-09] MEDS: LEVOTHYROXINE 75MCG TABLET (0.075MG) PO (05:42)
[2017-09-09 06:32] LABS: BASO % 0.3 % (0.0-1.0); EOS # 0.1 10^3/uL (0.0-0.50); HEMATOCRIT 27.4 % (36.0-47.0); HEMOGLOBIN 9.1 g/dl (12.0-15.5); IMMATURE GRANULOCYTE % 0.6 % (0-3.0); LYMPH # 0.7 10^3/uL (1.5-4.5); MEAN CORPUSCULAR HEMOGLOBIN 32.5 pg (27.0-33.0); MEAN CORPUSCULAR HGB CONC 33.2 g/dl (32.0-36.5); MEAN CORPUSCULAR VOLUME 97.9 fl (80.0-96.0); MONO # 0.3 10^3/uL (0.0-0.8); MONO % 8.2 % (0.0-5.0); NEUTROPHILS # 2.2 10^3/uL (1.8-7.7); NEUTROPHILS % 65.9 % (36.0-66.0); PLATELET COUNT, AUTOMATED 123 10^3/uL (150-450); RED CELL DISTRIBUTION WIDTH 15.3 % (11.5-14.5); WHITE BLOOD COUNT 3.3 10^3/uL (4.0-10.0)
[2017-09-09 06:43] LABS: PROTHROMBIN TIME 22.4 SECONDS (12.4-14.5)
[2017-09-09 06:55] LABS: ANION GAP 5 MEQ/L (8-16); BLOOD UREA NITROGEN 18 MG/DL (7-18); CALCIUM LEVEL 8.5 MG/DL (8.8-10.2); CARBON DIOXIDE LEVEL 34 MEQ/L (21-32); CHLORIDE LEVEL 99 MEQ/L (98-107); GLOMERULAR FILTRATION RATE 43.2 (>45); GLUCOSE, FASTING 104 MG/DL (70-100); MAGNESIUM LEVEL 2.2 MG/DL (1.8-2.4); POTASSIUM SERUM 3.2 MEQ/L (3.5-5.1); SODIUM LEVEL 138 MEQ/L (136-145)
[2017-09-09] MEDS: TORSEMIDE 100 MG TAB PO ×2 (08:12→17:34)
[2017-09-09] MEDS: ACYCLOVIR 200 MG CAPSULE PO ×2 (08:12→20:14)
[2017-09-09] MEDS: MULTIVITAMINS/MINERALS THERAP 1 TAB PO (08:12)
[2017-09-09] MEDS: FAMOTIDINE 20 MG TAB PO ×2 (08:12→20:14)
[2017-09-09] MEDS: POTASSIUM CHLORIDE 10 MEQ SR TABLET PO ×2 (08:13→20:14)
[2017-09-09] MEDS: ONDANSETRON 4 MG TAB (S0181) PO ×2 (08:13→20:14)
[2017-09-09] MEDS: SPIRONOLACTONE 25 MG TAB PO (08:14)
[2017-09-09 14:16] LABS: BODY FLUID CULTURE Not Indicated (.); LEGIONELLA ANTIGEN URINE Negative (Negative); ORGANISM ID Not indicated. (.); SPECIMEN SOURCE Urine (.); URINE STREP PNEUMONIAE ANTIGEN Negative (Negative)
[2017-09-09] MEDS: KCL 10MEQ/100ML SWI (KRUN) 10 MEQ in APPROPRIATE DILUENT 1 EA IV ×2 (14:40→14:41)
[2017-09-09] MEDS: WARFARIN SOD 2.5 MG TAB PO (17:34)
[2017-09-09] MEDS: LevoFLOXacin IV 250 MG in APPROPRIATE DILUENT 1 EA IV (20:14)
[2017-09-10] MEDS: LEVOTHYROXINE 75MCG TABLET (0.075MG) PO (06:15)
[2017-09-10] MEDS: SLF 3 ML SYR IV ×3 (06:15→20:42)
[2017-09-10 06:25] LABS: BASO % 0.4 % (0.0-1.0); EOS # 0.1 10^3/uL (0.0-0.50); EOS % 5.6 % (0.0-3.0); HEMATOCRIT 27.3 % (36.0-47.0); HEMOGLOBIN 9.1 g/dl (12.0-15.5); IMMATURE GRANULOCYTE % 0.8 % (0-3.0); LYMPH # 0.6 10^3/uL (1.5-4.5); LYMPH % 25.4 % (24.0-44.0); MEAN CORPUSCULAR HEMOGLOBIN 32.6 pg (27.0-33.0); MEAN CORPUSCULAR HGB CONC 33.3 g/dl (32.0-36.5); MEAN CORPUSCULAR VOLUME 97.8 fl (80.0-96.0); MONO # 0.3 10^3/uL (0.0-0.8); MONO % 10.1 % (0.0-5.0); NEUTROPHILS # 1.4 10^3/uL (1.8-7.7); NEUTROPHILS % 57.7 % (36.0-66.0); PLATELET COUNT, AUTOMATED 145 10^3/uL (150-450); RED BLOOD COUNT 2.79 10^6/uL (4.00-5.40); RED CELL DISTRIBUTION WIDTH 15.5 % (11.5-14.5); WHITE BLOOD COUNT 2.5 10^3/uL (4.0-10.0)
[2017-09-10 06:39] LABS: PROTHROMBIN TIME 24.3 SECONDS (12.4-14.5)
[2017-09-10 06:43] LABS: ANION GAP 5 MEQ/L (8-16); BLOOD UREA NITROGEN 19 MG/DL (7-18); CALCIUM LEVEL 8.2 MG/DL (8.8-10.2); CARBON DIOXIDE LEVEL 33 MEQ/L (21-32); CHLORIDE LEVEL 102 MEQ/L (98-107); GLOMERULAR FILTRATION RATE 47.4 (>45); GLUCOSE, FASTING 94 MG/DL (70-100); MAGNESIUM LEVEL 2.3 MG/DL (1.8-2.4); POTASSIUM SERUM 3.6 MEQ/L (3.5-5.1); SODIUM LEVEL 140 MEQ/L (136-145)
[2017-09-10] MEDS: MULTIVITAMINS/MINERALS THERAP 1 TAB PO (08:15)
[2017-09-10] MEDS: SPIRONOLACTONE 25 MG TAB PO (08:15)
[2017-09-10] MEDS: FAMOTIDINE 20 MG TAB PO ×2 (08:15→20:41)
[2017-09-10] MEDS: ONDANSETRON 4 MG TAB (S0181) PO ×2 (08:15→20:42)
[2017-09-10] MEDS: ACYCLOVIR 200 MG CAPSULE PO ×2 (08:15→20:41)
[2017-09-10] MEDS: TORSEMIDE 100 MG TAB PO ×2 (08:16→16:20)
[2017-09-10] MEDS: POTASSIUM CHLORIDE 10 MEQ SR TABLET PO ×2 (08:16→20:42)
[2017-09-10] MEDS: WARFARIN SOD 2.5 MG TAB PO (16:20)
[2017-09-10] MEDS: LevoFLOXacin 250 MG TABLET PO (20:41)
[2017-09-11] MEDS: LEVOTHYROXINE 75MCG TABLET (0.075MG) PO (05:54)
[2017-09-11] MEDS: SLF 3 ML SYR IV ×2 (05:54→14:00)
[2017-09-11 05:59] LABS: BASO % 0.7 % (0.0-1.0); EOS # 0.1 10^3/uL (0.0-0.50); EOS % 4.5 % (0.0-3.0); HEMATOCRIT 28.1 % (36.0-47.0); HEMOGLOBIN 9.4 g/dl (12.0-15.5); LYMPH % 34.6 % (24.0-44.0); MEAN CORPUSCULAR HEMOGLOBIN 32.3 pg (27.0-33.0); MEAN CORPUSCULAR HGB CONC 33.5 g/dl (32.0-36.5); MEAN CORPUSCULAR VOLUME 96.6 fl (80.0-96.0); MONO # 0.3 10^3/uL (0.0-0.8); MONO % 9.4 % (0.0-5.0); NEUTROPHILS # 1.4 10^3/uL (1.8-7.7); NEUTROPHILS % 49.8 % (36.0-66.0); PLATELET COUNT, AUTOMATED 164 10^3/uL (150-450); RED BLOOD COUNT 2.91 10^6/uL (4.00-5.40); RED CELL DISTRIBUTION WIDTH 15.4 % (11.5-14.5); WHITE BLOOD COUNT 2.9 10^3/uL (4.0-10.0)
[2017-09-11 06:08] LABS: INR 2.05; PROTHROMBIN TIME 23.8 SECONDS (12.4-14.5)
[2017-09-11 06:10] LABS: ANION GAP 6 MEQ/L (8-16); BLOOD UREA NITROGEN 19 MG/DL (7-18); CALCIUM LEVEL 8.3 MG/DL (8.8-10.2); CARBON DIOXIDE LEVEL 31 MEQ/L (21-32); CHLORIDE LEVEL 104 MEQ/L (98-107); CREATININE FOR GFR 1.07 MG/DL (0.55-1.30); GLOMERULAR FILTRATION RATE 54.1 (>45); GLUCOSE, FASTING 101 MG/DL (70-100); MAGNESIUM LEVEL 2.3 MG/DL (1.8-2.4); POTASSIUM SERUM 3.3 MEQ/L (3.5-5.1); SODIUM LEVEL 141 MEQ/L (136-145)
[2017-09-11] MEDS: SPIRONOLACTONE 25 MG TAB PO (08:07)
[2017-09-11] MEDS: MULTIVITAMINS/MINERALS THERAP 1 TAB PO (08:27)
[2017-09-11] MEDS: FAMOTIDINE 20 MG TAB PO (08:27)
[2017-09-11] MEDS: ONDANSETRON 4 MG TAB (S0181) PO (08:27)
[2017-09-11] MEDS: ACYCLOVIR 200 MG CAPSULE PO (08:27)
[2017-09-11] MEDS: TORSEMIDE 100 MG TAB PO (08:27)
[2017-09-11] MEDS: POTASSIUM CHLORIDE 10 MEQ SR TABLET PO ×2 (08:28→12:44)
[2017-09-11 14:53] LABS: ANION GAP 7 MEQ/L (8-16); BLOOD UREA NITROGEN 19 MG/DL (7-18); CALCIUM LEVEL 8.8 MG/DL (8.8-10.2); CARBON DIOXIDE LEVEL 30 MEQ/L (21-32); CHLORIDE LEVEL 103 MEQ/L (98-107); CREATININE FOR GFR 1.34 MG/DL (0.55-1.30); GLOMERULAR FILTRATION RATE 41.7 (>45); GLUCOSE, FASTING 143 MG/DL (70-100); POTASSIUM SERUM 3.8 MEQ/L (3.5-5.1); SODIUM LEVEL 140 MEQ/L (136-145)
[2017-09-11] MEDS ORDERED: POTASSIUM CHLORIDE 10 MEQ SR TABLET PO (21:00)
== END 2017-09-11 17:50 | disposition home or self-care (01) | DRG 291 ==
LOC: M ED 10:54 → M MSPAV 09-08 22:08 → M ED INP 17:00 → M PCU 21:26
DX: I13.0 Hypertensive heart and chronic kidney disease with heart failure and stage 1 through stage 4 chronic kidney disease, or unspecified chronic kidney disease (principal); I50.33 Acute on chronic diastolic (congestive) heart failure; J96.01 Acute respiratory failure with hypoxia; D61.810 Antineoplastic chemotherapy induced pancytopenia; C90.02 Multiple myeloma in relapse; D64.81 Anemia due to antineoplastic chemotherapy; D69.6 Thrombocytopenia, unspecified; Z79.01 Long term (current) use of anticoagulants; N18.3 Chronic kidney disease, stage 3 (moderate); E03.9 Hypothyroidism, unspecified; Z86.718 Personal history of other venous thrombosis and embolism; I73.9 Peripheral vascular disease, unspecified; E87.6 Hypokalemia; Z79.899 Other long term (current) drug therapy; Z88.8 Allergy status to other drugs, medicaments and biological substances; D63.1 Anemia in chronic kidney disease; R91.8 Other nonspecific abnormal finding of lung field

== ENCOUNTER → 2017-09-13 | Outpatient (REF) | payer MEDICARE ==
[2017-09-13 14:21] LABS: ANION GAP 8 MEQ/L (8-16); BLOOD UREA NITROGEN 21 MG/DL (7-18); CALCIUM LEVEL 8.7 MG/DL (8.8-10.2); CARBON DIOXIDE LEVEL 30 MEQ/L (21-32); CHLORIDE LEVEL 105 MEQ/L (98-107); CREATININE FOR GFR 1.25 MG/DL (0.55-1.30); GLOMERULAR FILTRATION RATE 45.2 (>45); GLUCOSE, FASTING 108 MG/DL (70-100); SODIUM LEVEL 143 MEQ/L (136-145)
== END ==
LOC: M SFHCADAM 11:30
DX: E87.6 Hypokalemia (principal)
CPT/HCPCS: 80048

== ENCOUNTER → 2017-09-29 | Outpatient (REF) | payer MEDICARE ==
[2017-09-29 14:22] LABS: IMMUNOGLOBULIN G 389 MG/DL (681-1648); IMMUNOGLOBULIN M 31.1 MG/DL (40-230); TOTAL PROTEIN 5.5 GM/DL (6.4-8.2)
[2017-09-30 11:08] LABS: ALBUMIN % 55.2 % (55.8-66.1); ALPHA-1-GLOBULIN % 8.5 % (2.9-4.9)
[2017-09-30 11:09] LABS: ALBUMIN 3.04 GM/DL (3.29-5.55); ALPHA-1-GLOBULINS 0.47 GM/DL (0.17-0.41); ALPHA-2-GLOBULINS 0.91 GM/DL (0.42-0.99); ALPHA-2-GLOBULINS % 16.5 % (7.1-11.8); BETA-1-GLOBULINS 0.41 GM/DL (0.28-0.60); BETA-1-GLOBULINS % 7.4 % (4.7-7.2); BETA-2-GLOBULINS 0.28 GM/DL (0.19-0.55); GAMMA GLOBULIN % 7.4 % (11.1-18.8); GAMMA GLOBULINS 0.41 GM/DL (0.65-1.58)
[2017-10-01 00:07] LABS: FREE KAPPA LIGHT CHAINS SERUM 16.1 mg/L (3.3-19.4); FREE LAMBDA LIGHT CHAINS SERUM 24.5 mg/L (5.7-26.3); KAPPA/LAMBDA RATIO SERUM 0.66 (0.26-1.65)
== END ==
LOC: M LAB REF 13:13
DX: C90.00 Multiple myeloma not having achieved remission (principal); C79.51 Secondary malignant neoplasm of bone
CPT/HCPCS: 84165

== ENCOUNTER → 2017-10-04 | Outpatient (REF) | payer MEDICARE ==
[2017-10-04 14:31] LABS: ANION GAP 8 MEQ/L (8-16); BLOOD UREA NITROGEN 16 MG/DL (7-18); CALCIUM LEVEL 8.8 MG/DL (8.8-10.2); CARBON DIOXIDE LEVEL 32 MEQ/L (21-32); CHLORIDE LEVEL 104 MEQ/L (98-107); CREATININE FOR GFR 1.17 MG/DL (0.55-1.30); GLOMERULAR FILTRATION RATE 48.8 (>45); GLUCOSE, FASTING 104 MG/DL (70-100); POTASSIUM SERUM 3.6 MEQ/L (3.5-5.1); SODIUM LEVEL 144 MEQ/L (136-145)
== END ==
LOC: M SFHCPLAZ 11:45
DX: E87.6 Hypokalemia (principal)
CPT/HCPCS: 80048

== ENCOUNTER → 2017-10-28 | Outpatient (REF) | payer MEDICARE ==
[2017-10-28 15:07] LABS: IMMUNOGLOBULIN A 28.8 MG/DL (70-400); IMMUNOGLOBULIN G 351 MG/DL (681-1648); TOTAL PROTEIN 5.9 GM/DL (6.4-8.2)
[2017-10-28 15:29] LABS: IMMUNOGLOBULIN M 11.8 MG/DL (40-230)
[2017-10-30 00:07] LABS: FREE KAPPA LIGHT CHAINS SERUM 11.2 mg/L (3.3-19.4); FREE LAMBDA LIGHT CHAINS SERUM 7.8 mg/L (5.7-26.3); KAPPA/LAMBDA RATIO SERUM 1.44 (0.26-1.65)
[2017-11-02 14:13] LABS: ALBUMIN % 58.9 % (55.8-66.1); ALPHA-1-GLOBULIN % 6.1 % (2.9-4.9); ALPHA-2-GLOBULINS % 15.5 % (7.1-11.8); BETA-1-GLOBULINS % 8.7 % (4.7-7.2)
[2017-11-02 14:14] LABS: ALBUMIN 3.48 GM/DL (3.29-5.55); ALPHA-1-GLOBULINS 0.36 GM/DL (0.17-0.41); ALPHA-2-GLOBULINS 0.91 GM/DL (0.42-0.99); BETA-1-GLOBULINS 0.51 GM/DL (0.28-0.60); BETA-2-GLOBULINS 0.28 GM/DL (0.19-0.55); BETA-2-GLOBULINS % 4.8 % (3.2-6.5); GAMMA GLOBULINS 0.35 GM/DL (0.65-1.58)
== END ==
LOC: M LAB REF 13:49
DX: C90.00 Multiple myeloma not having achieved remission (principal); C79.51 Secondary malignant neoplasm of bone
CPT/HCPCS: 84165

== ENCOUNTER → 2017-11-11 | Outpatient (REF) | payer MEDICARE ==
[2017-11-11 17:45] LABS: ANION GAP 8 MEQ/L (8-16); BLOOD UREA NITROGEN 21 MG/DL (7-18); CALCIUM LEVEL 8.5 MG/DL (8.8-10.2); CARBON DIOXIDE LEVEL 32 MEQ/L (21-32); CHLORIDE LEVEL 103 MEQ/L (98-107); FREE T4 1.25 NG/DL (0.76-1.46); GLOMERULAR FILTRATION RATE 47.4 (>45); GLUCOSE, FASTING 160 MG/DL (70-100); POTASSIUM SERUM 3.8 MEQ/L (3.5-5.1); SODIUM LEVEL 143 MEQ/L (136-145); THYROID STIMULATING HORMONE 0.326 uIU/ML (0.358-3.740)
== END ==
LOC: M SFHCPLAZ 15:09
DX: E03.9 Hypothyroidism, unspecified (principal); I13.0 Hypertensive heart and chronic kidney disease with heart failure and stage 1 through stage 4 chronic kidney disease, or unspecified chronic kidney disease; E87.6 Hypokalemia
CPT/HCPCS: 84443

== ENCOUNTER → 2017-11-13 | Outpatient (CLI) | payer MEDICARE | LOC: M RAD 10:07 | DX: S22.31XA Fracture of one rib, right side, initial encounter for closed fracture (principal); X58.XXXA Exposure to other specified factors, initial encounter; Y92.9 Unspecified place or not applicable | CPT/HCPCS: 71101 ==

== ENCOUNTER → 2018-01-03 | Outpatient (REF) | payer MEDICARE ==
[2018-01-03 14:13] LABS: IMMUNOGLOBULIN A 25.6 MG/DL (70-400); IMMUNOGLOBULIN G 287 MG/DL (681-1648); TOTAL PROTEIN 6.4 GM/DL (6.4-8.2)
[2018-01-05 00:07] LABS: FREE KAPPA LIGHT CHAINS SERUM 8.9 mg/L (3.3-19.4); FREE LAMBDA LIGHT CHAINS SERUM 3.8 mg/L (5.7-26.3); KAPPA/LAMBDA RATIO SERUM 2.34 (0.26-1.65)
[2018-01-05 11:55] LABS: ALBUMIN % 62.9 % (55.8-66.1); ALPHA-1-GLOBULIN % 5.2 % (2.9-4.9); BETA-1-GLOBULINS % 8.1 % (4.7-7.2)
[2018-01-05 11:56] LABS: ALBUMIN 4.03 GM/DL (3.29-5.55); ALPHA-1-GLOBULINS 0.33 GM/DL (0.17-0.41); BETA-1-GLOBULINS 0.52 GM/DL (0.28-0.60); BETA-2-GLOBULINS 0.29 GM/DL (0.19-0.55); BETA-2-GLOBULINS % 4.6 % (3.2-6.5); GAMMA GLOBULIN % 5.2 % (11.1-18.8); GAMMA GLOBULINS 0.33 GM/DL (0.65-1.58)
== END ==
LOC: M LAB REF 13:09
DX: C90.00 Multiple myeloma not having achieved remission (principal); C79.51 Secondary malignant neoplasm of bone
CPT/HCPCS: 84165

== ENCOUNTER → 2018-01-21 | Outpatient (REF) | payer MEDICARE ==
[2018-01-21 13:30] LABS: INR 1.02; PROTHROMBIN TIME 13.5 SECONDS (12.1-14.4)
[2018-01-21 14:21] LABS: ALBUMIN/GLOBULIN RATIO 1.33 (1.00-1.93); ALKALINE PHOSPHATASE 71 U/L (45-117); ALT/SGPT 45 U/L (12-78); ANION GAP 8 MEQ/L (8-16); AST/SGOT 14 U/L (7-37); BLOOD UREA NITROGEN 19 MG/DL (7-18); CALCIUM LEVEL 9.7 MG/DL (8.8-10.2); CARBON DIOXIDE LEVEL 30 MEQ/L (21-32); CHLORIDE LEVEL 100 MEQ/L (98-107); CREATININE FOR GFR 1.49 MG/DL (0.55-1.30); FREE T4 1.27 NG/DL (0.76-1.46); GLOMERULAR FILTRATION RATE 36.8 (>39); GLUCOSE, FASTING 102 MG/DL (70-100); SODIUM LEVEL 138 MEQ/L (136-145)
[2018-01-21 14:23] LABS: POTASSIUM SERUM 5.2 MEQ/L (3.5-5.1)
== END ==
LOC: M SFHCPLAZ 11:22
DX: E87.6 Hypokalemia (principal); N18.3 Chronic kidney disease, stage 3 (moderate); E03.9 Hypothyroidism, unspecified; Z51.81 Encounter for therapeutic drug level monitoring
CPT/HCPCS: 84443

== ENCOUNTER → 2018-01-27 | Outpatient (REF) | payer MEDICARE | LOC: M SFHCPLAZ 16:59 | DX: R30.0 Dysuria (principal) | CPT/HCPCS: 87186 ==

== ENCOUNTER → 2018-02-10 | Outpatient (REF) | payer MEDICARE ==
[2018-02-10 12:58] LABS: INR 1.03; PROTHROMBIN TIME 13.6 SECONDS (12.1-14.4)
[2018-02-10 13:04] LABS: ANION GAP 6 MEQ/L (8-16); BLOOD UREA NITROGEN 20 MG/DL (7-18); CARBON DIOXIDE LEVEL 31 MEQ/L (21-32); CHLORIDE LEVEL 105 MEQ/L (98-107); CREATININE FOR GFR 1.24 MG/DL (0.55-1.30); GLOMERULAR FILTRATION RATE 45.5 (>39); GLUCOSE, FASTING 92 MG/DL (70-100); POTASSIUM SERUM 4.3 MEQ/L (3.5-5.1); SODIUM LEVEL 142 MEQ/L (136-145)
== END ==
LOC: M SFHCPLAZ 10:28
DX: E87.6 Hypokalemia (principal); I82.409 Acute embolism and thrombosis of unspecified deep veins of unspecified lower extremity; Z51.81 Encounter for therapeutic drug level monitoring; Z79.01 Long term (current) use of anticoagulants
CPT/HCPCS: 80048

== ENCOUNTER → 2018-02-10 | Outpatient (REF) | payer MEDICARE ==
[2018-02-10 15:18] LABS: ALBUMIN 3.6 GM/DL (3.2-5.2)
[2018-02-10 15:18] LABS: CALCIUM LEVEL 8.8 MG/DL (8.8-10.2)
== END ==
LOC: M LAB REF 12:45
DX: C90.00 Multiple myeloma not having achieved remission (principal)
CPT/HCPCS: 82040

== ENCOUNTER → 2018-03-18 | Outpatient (REF) | payer MEDICARE ==
[2018-03-18 12:28] LABS: HEMATOCRIT 35.8 % (36.0-47.0); HEMOGLOBIN 11.8 g/dl (12.0-15.5); MEAN CORPUSCULAR HEMOGLOBIN 33.9 pg (27.0-33.0); MEAN CORPUSCULAR VOLUME 102.9 fl (80.0-96.0); PLATELET COUNT, AUTOMATED 144 10^3/uL (150-450); RED BLOOD COUNT 3.48 10^6/uL (4.00-5.40); RED CELL DISTRIBUTION WIDTH 15.8 % (11.5-14.5); WHITE BLOOD COUNT 2.7 10^3/uL (4.0-10.0)
[2018-03-18 12:52] LABS: ALBUMIN 3.2 GM/DL (3.2-5.2); ALBUMIN/GLOBULIN RATIO 1.33 (1.00-1.93); ALKALINE PHOSPHATASE 59 U/L (45-117); ALT/SGPT 25 U/L (12-78); ANION GAP 10 MEQ/L (8-16); AST/SGOT 14 U/L (7-37); BILIRUBIN,TOTAL 0.6 MG/DL (0.2-1.0); BLOOD UREA NITROGEN 17 MG/DL (7-18); CALCIUM LEVEL 8.6 MG/DL (8.8-10.2); CARBON DIOXIDE LEVEL 31 MEQ/L (21-32); CHLORIDE LEVEL 101 MEQ/L (98-107); CHOLESTEROL LEVEL 138 MG/DL (<200); CHOLESTEROL RISK RATIO 2.705 (<5); CREATININE FOR GFR 1.21 MG/DL (0.55-1.30); FREE T4 1.18 NG/DL (0.76-1.46); GLOMERULAR FILTRATION RATE 46.8 (>39); GLUCOSE, FASTING 125 MG/DL (70-100); HDL CHOLESTEROL 51 MG/DL (>40); LDL CHOLESTEROL 45 MG/DL (<100); NON-HDL-C 87 MG/DL; POTASSIUM SERUM 3.6 MEQ/L (3.5-5.1); SODIUM LEVEL 142 MEQ/L (136-145); TOTAL 25(OH) VITAMIN D 25.2 NG/ML (30.0-100.0); TOTAL PROTEIN 5.6 GM/DL (6.4-8.2); TRIGLYCERIDES LEVEL 209 MG/DL (<150)
== END ==
LOC: M SFHCPLAZ 09:42
DX: C90.00 Multiple myeloma not having achieved remission (principal); I13.0 Hypertensive heart and chronic kidney disease with heart failure and stage 1 through stage 4 chronic kidney disease, or unspecified chronic kidney disease; N18.3 Chronic kidney disease, stage 3 (moderate); E03.9 Hypothyroidism, unspecified; Z51.81 Encounter for therapeutic drug level monitoring; Z79.01 Long term (current) use of anticoagulants; Z23 Encounter for immunization
CPT/HCPCS: 84443

== ENCOUNTER → 2018-05-05 | Outpatient (REF) | payer MEDICARE ==
[2018-05-05 13:41] LABS: BASO # 0.1 10^3/uL (0.0-0.2); BASO % 1.3 % (0.0-1.0); EOS # 0.3 10^3/uL (0.0-0.50); EOS % 6.9 % (0.0-3.0); HEMATOCRIT 39.1 % (36.0-47.0); HEMOGLOBIN 13.1 g/dl (12.0-15.5); IMMATURE GRANULOCYTE % 0.3 % (0-3.0); LYMPH # 0.8 10^3/uL (1.5-4.5); LYMPH % 21.6 % (24.0-44.0); MEAN CORPUSCULAR HGB CONC 33.5 g/dl (32.0-36.5); MEAN CORPUSCULAR VOLUME 98.5 fl (80.0-96.0); MONO # 0.4 10^3/uL (0.0-0.8); MONO % 11.5 % (0.0-5.0); NEUTROPHILS # 2.2 10^3/uL (1.8-7.7); NEUTROPHILS % 58.4 % (36.0-66.0); PLATELET COUNT, AUTOMATED 138 10^3/uL (150-450); RED BLOOD COUNT 3.97 10^6/uL (4.00-5.40); RED CELL DISTRIBUTION WIDTH 14.1 % (11.5-14.5); WHITE BLOOD COUNT 3.8 10^3/uL (4.0-10.0)
[2018-05-05 14:16] LABS: ALBUMIN 3.5 GM/DL (3.2-5.2); ALBUMIN/GLOBULIN RATIO 1.25 (1.00-1.93); ALKALINE PHOSPHATASE 86 U/L (45-117); ALT/SGPT 45 U/L (12-78); ANION GAP 8 MEQ/L (8-16); AST/SGOT 14 U/L (7-37); BILIRUBIN,TOTAL 0.8 MG/DL (0.2-1.0); BLOOD UREA NITROGEN 15 MG/DL (7-18); CALCIUM LEVEL 8.7 MG/DL (8.8-10.2); CARBON DIOXIDE LEVEL 32 MEQ/L (21-32); CHLORIDE LEVEL 98 MEQ/L (98-107); CREATININE FOR GFR 1.39 MG/DL (0.55-1.30); FREE T4 1.49 NG/DL (0.76-1.46); GLOMERULAR FILTRATION RATE 39.9 (>39); GLUCOSE, FASTING 102 MG/DL (70-100); POTASSIUM SERUM 3.8 MEQ/L (3.5-5.1); SODIUM LEVEL 138 MEQ/L (136-145); TOTAL PROTEIN 6.3 GM/DL (6.4-8.2)
== END ==
LOC: M SFHCPLAZ 12:09
DX: R53.1 Weakness (principal); R53.83 Other fatigue; E03.9 Hypothyroidism, unspecified
CPT/HCPCS: 84443

== ENCOUNTER → 2018-07-14 | Outpatient (REF) | payer MEDICARE ==
[~2018-07-14] MED LIST changes: -ACET1TAB17 PO; +ACET1TAB55 PO; +ACET500T15 PO; -ACET50TAOT PO; +ACYC400T PO; +BENA25CA4 PO; +CALC250T PO; +CALC500T49 PO; +COUM2.5T17 PO; +DARATUMUMAB IV; +DARZ1SOL IV; +DEXA2TA PO; +DEXA4TA PO; +LENALIDOMIDE; +LENALIDOMIDE IV; +LEVO25TA5 PO; +OMEP40CA2 PO; +ONDA4SOL PO; +REVL10CA2 PO; +REVL5CAP2 PO; +SPIR-10 PO; +SYNT50TA PO; +TYLETAB14 PO; +VITMTA PO; -ZOFR20TA PO; +ZOFR4TAB14 PO; +ZOFR4TAB16 PO; -ZOFR4TAB3 PO; +daratumumab
== END ==
LOC: M SFHCPLAZ 11:59
PROVIDERS: ATTEND Nurse Practitioner Family
DX: R30.0 Dysuria (principal)

== ENCOUNTER 2018-07-15 12:06 | Day surgery (SDC) | payer MEDICARE ==
[~2018-07-15] VITALS: Ht 149.9 cm; Wt 83.5 kg
[~2018-07-15 12:06] MED LIST changes: -CALC500T49 PO; -LEVO25TA5 PO; +NS 1,000 ML IV ONE; -ONDA4SOL PO
[2018-07-15] MEDS ORDERED: PROPOFOL 200 MG/20 ML VIAL As Ordered ONE (14:56)
--- NOTE | 2018-07-15 15:03 | ROOR ---
Patient Name: Peter Weinstein Procedure Date: 07/15/2018 2:43 PM Date of : 1945 Age: 72 Room: [facility] Gender: Female Note Status: Finalized Procedure: Upper GI endoscopy Indications: Epigastric abdominal pain (Intermittent/resolved) Providers: Sandro BAUER MD Referring MD: Octavio Solano MD Requesting Provider: Medicines: Monitored Anesthesia Care Complications: No immediate complications. Procedure: Pre-Anesthesia Assessment: - The heart rate, respiratory rate, oxygen saturations, blood pressure, adequacy of pulmonary ventilation, and response to care were monitored throughout the procedure. The Endoscope was introduced through the mouth, and advanced to the second part of duodenum. The upper GI endoscopy was accomplished without difficulty. The patient tolerated the procedure well. Findings: Small Hiatal Hernia. The Z-line was variable and was found 37 cm from the incisors. The exam was otherwise without abnormality. (large volume compliant stomach) Impression: - Esophagus is normal with Z-line variable, 37 cm from the incisors. - Stomach is normal with a small Hiatal Hernia. - Duodenum is normal. - No specimens collected. Recommendation: - Observe patient's clinical course. - Continue present medications. Sandro Bauer MD Sandro BAUER MD 07/15/2018 3:03:45 PM This report has been signed electronically. Number of Addenda: 0 Note Initiated On: 07/15/2018 2:43 PM Estimated Blood Loss: Estimated blood loss: none.
[2018-07-15 15:37] VITALS: BP 128/61
[2018-07-20] MEDS ORDERED: ONDA4SOL PO (11:56)
[2018-07-20] MEDS ORDERED: CALC500T49 PO (11:56)
[2018-07-20] MEDS ORDERED: LEVO25TA5 PO (11:56)
[2018-07-25] MEDS ORDERED: CALC250T PO (11:05)
== END 2018-07-15 15:39 | disposition home or self-care (01) ==
LOC: M OPP 12:06
PROVIDERS: ATTEND Internal Medicine Gastroenterology
DX: R10.13 Epigastric pain (principal); K22.8 Other specified diseases of esophagus; K44.9 Diaphragmatic hernia without obstruction or gangrene; E03.9 Hypothyroidism, unspecified; I25.9 Chronic ischemic heart disease, unspecified; K21.9 Gastro-esophageal reflux disease without esophagitis; I50.9 Heart failure, unspecified; I11.0 Hypertensive heart disease with heart failure; Z88.8 Allergy status to other drugs, medicaments and biological substances; Z79.01 Long term (current) use of anticoagulants; Z79.899 Other long term (current) drug therapy; Z80.41 Family history of malignant neoplasm of ovary; Z80.1 Family history of malignant neoplasm of trachea, bronchus and lung

== ENCOUNTER 2018-07-27 07:20 | Day surgery (SDC) | payer MEDICARE ==
[~2018-07-27] VITALS: Ht 149.9 cm; Wt 82.6 kg
[~2018-07-27 07:20] MED LIST changes: +ACETAMINOPHEN 325 MG TAB PO PRN; +BSS with VANC/TOB/EPI for EYE CASES IR ONE; +CALC500T49 PO; +CYCLOPENTOLATE 2% OPHTH SOLN 2ML BTL OS ONE; +HEALON DUET PRO(HEALON 10MG/ML 0.55ML & HEALON ENDOCOAT 30MG/ML 0.85ML) As Ordered ONE; +LEVO25TA5 PO; +LIDOCAINE 1% SDV 5 ML VIAL As Ordered ONE; +LIDOCAINE 3.5 % 1ML OPHTH TOPICAL GEL OU ONE; +MIDAZOLAM INJ 2 MG/2 ML VIAL (J2250) As Ordered ONE; +MOXIFLOXACIN IN BSS 0.25MG/0.25ML INTRACAMERAL INJ (OR EYE ONLY)(J2280) As Ordered ONE; -NS 1,000 ML IV ONE; +OFLOXACIN 0.3 % (OCUFLOX) OPTH SOL 5ML OS ONE; +ONDA4SOL PO; +PHENYLEPHRINE 2.5% OPHTH SOL 2ML OS ONE; +PHENYLEPHRINE HCL 10 % OPHTH. SOL 5ML OS PRN; +POVIDONE-IODINE 5% OPHTH PREP SOL 30ML As Ordered ONE; +TRIAMCINOLONE PRES FR 40 MG/ML 1ML(TRIESENCE)(OR EYE ONLY)(J3300 PER 1MG) As Ordered ONE; +TROPICAMIDE 1% OPHTH SOLN 2ML OS ONE; +fentaNYL 100 MCG/2 ML INJECTION (J3010) As Ordered ONE
[2018-07-27] MEDS ORDERED: AcetaZOLAMIDE 500 MG ER CAP PO ONE (09:45)
[2018-07-27] MEDS ORDERED: TRIMETHOBENZAMIDE 300 MG CAP PO PRN (09:45)
[2018-07-27 10:15] VITALS: BP 110/56
--- NOTE | 2018-07-27 23:15 | RO ---
DATE OF PROCEDURE: 07/27/2018 PREPROCEDURE DIAGNOSIS: Cataract of left eye. POSTPROCEDURE DIAGNOSIS: Cataract of left eye. PROCEDURE: Femtosecond laser and phacoemulsification of the intraocular lens with lens implantation left eye. Intraocular lens power used was AU00T0, power 25.5 diopter with the help of the Optiwave Refractive Analysis (ORA).. SURGEON: Jame Dodson MD CREDIT CARD CLERK: None. ANESTHESIA: Local IV standby. FINDINGS: Cataract of left eye. COMPLICATIONS: None. DESCRIPTION OF PROCEDURE: The patient was brought to the operating room and laid in supine position. A lid speculum was placed, and patient was brought under the femtosecond laser. After the satisfactory placement of the patient interface, primary incision, secondary incision, and arcuate incisions with lens fragmentation was done without any complication per plan. The patients interface was then removed and lid speculum removed. Patient was placed under the microscope. The eye was prepped and draped in a sterile fashion for ophthalmic surgery. Lid speculum was placed. The secondary incision was opened, and EndoCoat was injected into the anterior chamber. The temporal clear corneal incision was then opened and capsulorrhexis removed, followed by hydrodissection. This was followed by phacoemulsification of the lens within the capsular bag. Cortical material was then aspirated, and Healon was injected into the capsular bag. Intraocular lens was then placed. Excess Healon was aspirated. Wound was hydrated. The lid speculum was removed, and patient was returned to the recovery room in stable condition. Addendum: After the cortical cleanup Healon was placed in the capsular bag in the anterior capsule. Intraocular pressure was checked and multiple ORA calculations were reviewed prior to choosing the intraocular lens.
== END 2018-07-27 10:30 | disposition home or self-care (01) ==
LOC: M SDC 07:20
PROVIDERS: ATTEND Ophthalmology
DX: H26.9 Unspecified cataract (principal); I10 Essential (primary) hypertension; E03.9 Hypothyroidism, unspecified; Z86.73 Personal history of transient ischemic attack (TIA), and cerebral infarction without residual deficits; Z79.899 Other long term (current) drug therapy; Z79.01 Long term (current) use of anticoagulants; C90.01 Multiple myeloma in remission; Z85.41 Personal history of malignant neoplasm of cervix uteri
CPT/HCPCS: 66984; 92015; J2250; J2280; J3010; J3300; V2632

== ENCOUNTER 2018-08-03 09:03 | Day surgery (SDC) | payer MEDICARE ==
[~2018-08-03] VITALS: Ht 154.9 cm; Wt 81.6 kg
[~2018-08-03 09:03] MED LIST changes: -ACETAMINOPHEN 325 MG TAB PO PRN; +CYCLOPENTOLATE 2% OPHTH SOLN 2ML BTL OD ONE; -CYCLOPENTOLATE 2% OPHTH SOLN 2ML BTL OS ONE; +OFLOXACIN 0.3 % (OCUFLOX) OPTH SOL 5ML OD ONE; -OFLOXACIN 0.3 % (OCUFLOX) OPTH SOL 5ML OS ONE; +PHENYLEPHRINE 2.5% OPHTH SOL 2ML OD ONE; -PHENYLEPHRINE 2.5% OPHTH SOL 2ML OS ONE; +PHENYLEPHRINE HCL 10 % OPHTH. SOL 5ML OD PRN; -PHENYLEPHRINE HCL 10 % OPHTH. SOL 5ML OS PRN; +TROPICAMIDE 1% OPHTH SOLN 2ML OD ONE; -TROPICAMIDE 1% OPHTH SOLN 2ML OS ONE; -fentaNYL 100 MCG/2 ML INJECTION (J3010) As Ordered ONE
[2018-08-03] MEDS ORDERED: HEALON DUET PRO(HEALON 10MG/ML 0.55ML & HEALON ENDOCOAT 30MG/ML 0.85ML) As Ordered ONE (10:35)
[2018-08-03 11:08] VITALS: BP 125/58
--- NOTE | 2018-08-12 16:18 | RO ---
DATE OF PROCEDURE: 08/03/2018 PREPROCEDURE DIAGNOSIS: Cataract, miosis right eye. POSTPROCEDURE DIAGNOSIS: Cataract, miosis right eye. PROCEDURE: Phacoemulsification with intraoperative lens implantation of AU00T0, power 24.5 with the help of Optiwave Refractive Analysis (ORA) and placement of Malyugin ring 7 mm. SURGEON: Jame Dodson MD POLICY ADVISOR: None. ANESTHESIA: COMPLICATIONS: None. DESCRIPTION OF PROCEDURE: The patient was brought to the operating room, laid in supine position, the eye was prepped and draped in a sterile fashion for ophthalmic surgery and a lid speculum was placed. A sideport incision was made and EndoCoat was injected into the anterior chamber. Temporal clear corneal incision was made with a 2.5 mm keratome, followed by insertion of a 7 mm Malyugin ring with the help of the Malyugin hooks to dilate the pupil. Capsulorrhexis was then done followed by hydrodissection. Phacoemulsification was done in a divide and conquer method followed by aspiration of the cortical material. Healon was then placed in the capsular bag. Multiple ORA calculations were reviewed after intraocular pressure was checked and noted to be adequate. Intraocular lens was then inserted. Malyugin ring was then removed with the help of the Malyugin hook followed by aspiration of the viscoelastic. The wound was hydrated. Intracameral moxifloxacin and sub-Tenon triamcinolone was given. Lid speculum removed, and the patient returned to the recovery room in stable condition.
[2018-08-15] MEDS ORDERED: CIPR-249 PO (10:26)
== END 2018-08-03 11:35 | disposition home or self-care (01) ==
LOC: M SDC 09:03
PROVIDERS: ATTEND Ophthalmology
DX: H26.9 Unspecified cataract (principal); H57.03 Miosis; I10 Essential (primary) hypertension; E03.9 Hypothyroidism, unspecified; D64.9 Anemia, unspecified; Z79.01 Long term (current) use of anticoagulants; I50.9 Heart failure, unspecified; Z86.73 Personal history of transient ischemic attack (TIA), and cerebral infarction without residual deficits
CPT/HCPCS: 66982; 92015; J2250; J2280; J3300; V2632

== ENCOUNTER → 2018-08-12 | Outpatient (REF) | payer MEDICARE ==
[~2018-08-12] MED LIST changes: -BSS with VANC/TOB/EPI for EYE CASES IR ONE; +CIPR-249 PO; -CYCLOPENTOLATE 2% OPHTH SOLN 2ML BTL OD ONE; -HEALON DUET PRO(HEALON 10MG/ML 0.55ML & HEALON ENDOCOAT 30MG/ML 0.85ML) As Ordered ONE; -LIDOCAINE 1% SDV 5 ML VIAL As Ordered ONE; -LIDOCAINE 3.5 % 1ML OPHTH TOPICAL GEL OU ONE; -MIDAZOLAM INJ 2 MG/2 ML VIAL (J2250) As Ordered ONE; -MOXIFLOXACIN IN BSS 0.25MG/0.25ML INTRACAMERAL INJ (OR EYE ONLY)(J2280) As Ordered ONE; -OFLOXACIN 0.3 % (OCUFLOX) OPTH SOL 5ML OD ONE; -PHENYLEPHRINE 2.5% OPHTH SOL 2ML OD ONE; -PHENYLEPHRINE HCL 10 % OPHTH. SOL 5ML OD PRN; -POVIDONE-IODINE 5% OPHTH PREP SOL 30ML As Ordered ONE; -TRIAMCINOLONE PRES FR 40 MG/ML 1ML(TRIESENCE)(OR EYE ONLY)(J3300 PER 1MG) As Ordered ONE; -TROPICAMIDE 1% OPHTH SOLN 2ML OD ONE
== END ==
LOC: M LAB REF 16:21
PROVIDERS: ATTEND Physician Assistant
DX: N39.0 Urinary tract infection, site not specified (principal)

== ENCOUNTER → 2018-09-23 | Outpatient (CLI) | payer MEDICARE ==
[~2018-09-23] MED LIST changes: -/ACETCOD3T PO; -/DEXA4TA OR; -/PANT40TA OR; -/TRIM10TA OR; -/WARF25TA OR; -/WARF5TA; -/WARF5TA OR; +ACET1TAB16 PO; +ACYC1CAP20 PO; -ACYC200CA PO; -ASPI81CH PO; +ASPI81CH49 PO; +CALC500C16 PO; +COUM1TAB17; +COUM1TAB17 OR; +COUM1TAB18 OR; +DEXA1TAB8 OR; +PROT1TAB2 OR; +[UNRECOGNIZED DRUG - CODE] OR
--- NOTE | 2018-09-23 12:09 | REP ---
Skeletal survey: 15 views. History: Myeloma. Comparison skeletal survey October 10, 2015. Findings: There are lytic bony calvarial lesions compatible with a myelomatous involvement. The largest is in the right parietal bone. In 2016, this measured 2.9 cm. On today's PA chest x-ray, it measures 2.7 cm. It appears to be unchanged. The frontal view of the skull does show two smaller lesions which do not appear to have been present previously. The anterior mandible is deficient consistent with previous resection as before. No new lesion is seen in the cervical spine. There is an Eqtvir-R-Kpog catheter noted. In the thoracic spine, there are two adjacent wedged mid thoracic vertebrae unchanged. Degenerative disc changes are noted. No new area of collapse is seen. There is very slight collapse of the superior endplate of L2 with underlying lucency however this is unchanged from the September 2015 study. No new lumbar lesion is seen. A transsacral neurostimulator is again noted. No new lytic destructive lesion is seen in either femur or in either humerus. There is a pin in the right femur as before. The bony pelvic lesions noted previously in the iliac bones are again seen unchanged. There are numerous old healed rib fractures bilaterally. There is advanced diffuse osteopenia. The bony changes are stable in the rib cage. Impression: Overall, the previously identified radiolucencies appear stable. There are two small areas of calvarial lucency on the frontal view of the skull which do not appear to have been present previously. Electronically Signed by Costa Kelly MD 09/23/2018 04:41 P
== END ==
LOC: M RAD 10:31
PROVIDERS: ATTEND Internal Medicine Hematology & Oncology
DX: C90.00 Multiple myeloma not having achieved remission (principal)

== ENCOUNTER → 2018-10-07 | Outpatient (CLI) | payer MEDICARE ==
[2018-10-07 13:39] LABS: INR 1.63; PROTHROMBIN TIME 19.6 SECONDS (12.1-14.4)
== END ==
LOC: M LAB 12:57
PROVIDERS: ATTEND Family Medicine
DX: Z51.81 Encounter for therapeutic drug level monitoring (principal)

== ENCOUNTER → 2019-01-20 | Outpatient (REF) | payer MEDICARE ==
[2019-01-20 12:51] LABS: APPEARANCE, URINE CLEAR (CLEAR); BACTERIA, URINE AUTO 2+ (NEGATIVE); BILIRUBIN, URINE AUTO NEGATIVE (NEGATIVE); BLOOD, URINE BLOOD NEGATIVE (NEGATIVE); COLOR, URINE STRAW (YELLOW); GLUCOSE, URINE (UA) AUTO NEGATIVE (NEGATIVE); KETONE, URINE AUTO NEGATIVE (NEGATIVE); LEUKOCYTE ESTERASE, URINE AUTO 1+ (NEGATIVE); MUCUS, URINE SMALL (NEGATIVE); NITRITE, URINE AUTO NEGATIVE (NEGATIVE); PROTEIN, URINE AUTO NEGATIVE (NEGATIVE); RBC, URINE AUTO 3 /HPF (0-3); SPECIFIC GRAVITY URINE AUTO 1.005 (1.002-1.035); SQUAMOUS EPITHELIAL CELL UR AU 0 /HPF (0-6); UROBILINOGEN, URINE AUTO 0.2 mg/dL (0.0-2.0); WBC, URINE AUTO 29 /HPF (0-3)
== END ==
LOC: M SFHCPLAZ 09:58
PROVIDERS: ATTEND Family Medicine
DX: R30.0 Dysuria (principal)

== ENCOUNTER → 2019-02-01 | Outpatient (CLI) | payer MEDICARE ==
--- NOTE | 2019-02-01 11:32 | REPMRS ---
Patient History The patient states she had a clinical breast exam in December 2018. Benign radio exam breast specimen of the left breast, May 21, 2014. Benign stereotatic loc for ea lesion of the left breast, May 21, 2014. [facility] Digital Mammo Screening Bilat: February 01, 2019 - Exam #: [id number] Bilateral CC and MLO view(s) were taken. Technologist: Staci Meek, Technologist Prior study comparison: January 25, 2018, bilateral digital mammo screening bilat performed at [facility]. September 09, 2016, bilateral digital mammo screening bilat performed at [facility]. FINDINGS: There are scattered fibroglandular densities. There has been no change in the appearance of the mammogram from the prior studies. There is a mild amount of residual fibroglandular tissue which is fairly symmetric. There is no interval development of dominant mass, architectural distortion, or clustered microcalcification suggestive of malignancy. Assessment: BI-RADS/ACR category 1 mammogram. Negative Mammogram. Recommendation Routine screening mammogram in 1 year (for women over age 40). This mammogram was interpreted with the aid of an FDA-approved computer-aided dectection system. Electronically Signed By: Alexis Alex MD 02/01/19 0077
== END ==
LOC: M RAD 10:52
PROVIDERS: ATTEND Internal Medicine Hematology & Oncology
DX: Z12.31 Encounter for screening mammogram for malignant neoplasm of breast (principal); C90.00 Multiple myeloma not having achieved remission; C79.51 Secondary malignant neoplasm of bone

== ENCOUNTER → 2019-03-06 | Outpatient (CLI) | payer MEDICARE ==
[~2019-03-06] MED LIST changes: +ROPI0.5T PO
--- NOTE | 2019-03-06 11:45 | REP ---
Pelvis survey: Comparison is 09/23/2018. Calvarium: There are multiple calvarial lucencies, unchanged. Cervical spine: No lucencies are identified. There is demineralization. The mandible has been resected, this is unchanged. Thoracic spine: There is demineralization. No lucencies are identified. There are chronic compression deformities of the T9 and T10 vertebral bodies, unchanged. Lumbar spine: There are no lucencies. There is demineralization. There is grade 1 compression of the L2 vertebral body. This has progressed slightly. There is multilevel degenerative disc disease, unchanged. A trans sacral neural stimulator is again identified. Bilateral humeri: There are lucencies in the left humeral head, unchanged. There are lucencies in the right humeral head, unchanged. Bilateral femoral A: There are no lucencies. There is gamma nail fixation of the right hip, unchanged. Pelvis: The lytic lesion in the left iliac wing is unchanged. The right acetabular lytic lesion is partially obscured by the neural stimulator power pack. Multiple old rib fractures are again identified as previously. Impression: No significant interval change. Electronically Signed by Alexis Linn MD 03/06/2019 11:37 A
== END ==
LOC: M RAD 09:17
PROVIDERS: ATTEND Internal Medicine Hematology & Oncology
DX: C90.00 Multiple myeloma not having achieved remission (principal)

== ENCOUNTER → 2019-03-15 | Outpatient (CLI) | payer MEDICARE ==
[~2019-03-15] MED LIST changes: -OMEP40CA2 PO; +OMEP40CA97 PO
[2019-03-15 13:26] LABS: CREATININE FOR GFR 1.21 MG/DL (0.55-1.30); GLOMERULAR FILTRATION RATE 46.7 (>39)
== END ==
LOC: M LAB 12:13
PROVIDERS: ATTEND Internal Medicine Gastroenterology
DX: R63.4 Abnormal weight loss (principal)

== ENCOUNTER → 2019-03-30 | Outpatient (CLI) | payer MEDICARE ==
[~2019-03-30] MED LIST changes: +ISOVUE-370 76% 100ML VIAL (Q9967) As Ordered ONE
--- NOTE | 2019-03-30 14:57 | REP ---
Clinical: Abnormal weight loss. Technique: Axial contrast enhanced images from the lung bases to the pubic symphysis using oral (per protocol) and 100 ml Isovue 370 intravenous contrast material with precontrast and delayed images of the abdomen. Coronal and sagittal re-formations obtained. Findings: Lung bases demonstrate chronic interstitial changes. Visualized heart and pericardium are within normal limits. Liver, spleen, pancreas, bilateral adrenal glands are normal. Kidneys demonstrate age-related cortical atrophic changes. Evidence of prior cholecystectomy noted. The enteric system is without obstruction or acute inflammatory process. Pelvis demonstrates normal bladder and evidence for prior hysterectomy. No ascites. No free air. No adenopathy. Abdominal aorta without aneurysm or dissection. Musculoskeletal structures demonstrate innumerable lytic lesions throughout the visualized thoracolumbar spine, pelvis and hips similar to prior examination and likely related to the given history of multiple myeloma. Impression: 1. Chronic nonacute findings as described above. Including diffuse osseous lesions consistent with the given history of multiple myeloma. Electronically Signed by Asif Ptaterson MD 03/30/2019 02:48 P
== END ==
LOC: M RAD 12:33
PROVIDERS: ATTEND Internal Medicine Gastroenterology
DX: R63.4 Abnormal weight loss (principal)
CPT/HCPCS: 74178; Q9967

== ENCOUNTER → 2019-03-30 | Outpatient (CLI) | payer MEDICARE ==
[~2019-03-30] MED LIST changes: +GASTROGRAFIN SOLUTION 30ML (Q9963) As Ordered ONE; -ISOVUE-370 76% 100ML VIAL (Q9967) As Ordered ONE
--- NOTE | 2019-03-30 16:45 | REP ---
CT orbits: 03/30/2019. Indication: Exophthalmos. Comparison: 10/22/2014. Technique: Axial unenhanced CT images of the orbits were obtained with coronal and sagittal reconstructions. Findings: There is a enophthalmus on the left. The ocular anatomy is intact save for bilateral lens replacements. No significant intraorbital abnormalities are detected. The paranasal sinuses are clear save for an inferior left maxillary retention cyst. The mastoid air cells are clear. No significant intracranial abnormalities are present/detected. No fractures are detected. Impression: Left-sided enophthalmus. Otherwise unremarkable ocular and intraorbital anatomy. Electronically Signed by Mariano Valle DO 03/30/2019 04:36 P
== END ==
LOC: M RAD 12:38
PROVIDERS: ATTEND Ophthalmology
DX: H05.402 Unspecified enophthalmos, left eye (principal); Z96.1 Presence of intraocular lens
CPT/HCPCS: 70480; Q9963

== ENCOUNTER 2019-05-11 10:56 | Day surgery (SDC) | payer MEDICARE ==
[~2019-05-11] VITALS: Ht 149.9 cm; Wt 71.4 kg
[~2019-05-11 10:56] MED LIST changes: -GASTROGRAFIN SOLUTION 30ML (Q9963) As Ordered ONE; +LIDOCAINE 2% INJ 100 MG/5 ML SDV (FOR ANES.) As Ordered ONE; +MULTTAB86 PO; +NS 1,000 ML IV ONE; +PROPOFOL 200 MG/20 ML VIAL As Ordered ONE; +WARF-23 PO
--- NOTE | 2019-05-11 12:37 | ROOR ---
Patient Name: Traci Weinstein Procedure Date: 05/11/2019 12:09 PM Date of : 1945 Age: 73 Room: [facility] Gender: Female Note Status: Finalized Procedure: Colonoscopy Indications: Weight loss Providers: Sandro BAUER MD Referring MD: Octavio Solano MD Requesting Provider: Medicines: Monitored Anesthesia Care Complications: No immediate complications. Procedure: Pre-Anesthesia Assessment: - The heart rate, respiratory rate, oxygen saturations, blood pressure, adequacy of pulmonary ventilation, and response to care were monitored throughout the procedure. The Colonoscope was introduced through the anus and advanced to 6 cm into the ileum. The colonoscopy was performed without difficulty. The patient tolerated the procedure well. The quality of the bowel preparation was adequate. Findings: The perianal and digital rectal examinations were normal. Three sessile polyps were found in the ascending colon and cecum. The polyps were 4 to 7 mm in size. These polyps were removed with a cold snare. Resection and retrieval were complete. Multiple medium-mouthed diverticula were found in the sigmoid colon. Internal hemorrhoids were found during retroflexion. The hemorrhoids were small. Retroflexion in the right colon was performed. The exam was otherwise normal throughout the examined colon. Impression: - Three 4 to 7 mm polyps in the ascending colon and in the cecum, removed with a cold snare. Resected and retrieved. - Diverticulosis in the sigmoid colon. - Internal hemorrhoids. - The examination was otherwise normal on direct and retroflexion views. Recommendation: - Telephone endoscopist for pathology results in 2 weeks. - If the pathology report reveals adenomatous tissue, then repeat the colonoscopy for surveillance in 3 years. - Resume Coumadin (warfarin) at prior dose tomorrow. Refer to referring physician for further adjustment of therapy. Sandro Bauer MD Sandro BAUER MD 05/11/2019 12:36:29 PM Electronically signed by Sandro BAUER MD Number of Addenda: 0 Note Initiated On: 05/11/2019 12:09 PM Estimated Blood Loss: Estimated blood loss: none.
[2019-05-11 12:55] VITALS: BP 125/61
[2019-05-22] MEDS ORDERED: MACR100C43 PO (08:32)
== END 2019-05-11 13:02 | disposition home or self-care (01) ==
LOC: M OPP 10:56
PROVIDERS: ATTEND Internal Medicine Gastroenterology
DX: D12.2 Benign neoplasm of ascending colon (principal); D12.0 Benign neoplasm of cecum; K64.8 Other hemorrhoids; R63.4 Abnormal weight loss; K57.30 Diverticulosis of large intestine without perforation or abscess without bleeding; Z79.891 Long term (current) use of opiate analgesic; Z79.899 Other long term (current) drug therapy; Z79.01 Long term (current) use of anticoagulants; Z88.8 Allergy status to other drugs, medicaments and biological substances

== ENCOUNTER → 2019-07-12 | Outpatient (REF) | payer MEDICARE ==
[~2019-07-12] MED LIST changes: -LIDOCAINE 2% INJ 100 MG/5 ML SDV (FOR ANES.) As Ordered ONE; +MACR100C43 PO; -NS 1,000 ML IV ONE; +ONDA-83 PO; -ONDA4TAB5 PO; -PROPOFOL 200 MG/20 ML VIAL As Ordered ONE; -ROPI0.5T PO; +ROPI0.5T3 PO; +VITAD1000T PO
[2019-07-12 14:23] LABS: APPEARANCE, URINE HAZY (CLEAR); BACTERIA, URINE AUTO 1+ (NEGATIVE); BILIRUBIN, URINE AUTO NEGATIVE (NEGATIVE); BLOOD, URINE BLOOD 1+ (NEGATIVE); COLOR, URINE YELLOW (YELLOW); GLUCOSE, URINE (UA) AUTO NEGATIVE (NEGATIVE); KETONE, URINE AUTO NEGATIVE (NEGATIVE); LEUKOCYTE ESTERASE, URINE AUTO 3+ (NEGATIVE); NITRITE, URINE AUTO NEGATIVE (NEGATIVE); PROTEIN, URINE AUTO NEGATIVE (NEGATIVE); RBC, URINE AUTO 5 /HPF (0-3); SPECIFIC GRAVITY URINE AUTO 1.008 (1.002-1.035); SQUAMOUS EPITHELIAL CELL UR AU 1 /HPF (0-6); UROBILINOGEN, URINE AUTO 0.2 mg/dL (0.0-2.0); WBC, URINE AUTO 126 /HPF (0-3)
== END ==
LOC: M SMT 12:56
PROVIDERS: ATTEND Nurse Practitioner Family
DX: N39.0 Urinary tract infection, site not specified (principal)
CPT/HCPCS: 51798; 81001; 87088; 87186; G0463

== ENCOUNTER → 2019-07-25 | Outpatient (CLI) | payer MEDICARE ==
--- NOTE | 2019-07-25 15:58 | REP ---
Body PET CT scan of the colon. The patient has multiple myeloma and the studies performed to evaluate response to treatment. There are no comparison PET CT scans. Scanning is performed from the top of the calvarium to the feet. No skeletal uptake is identified in the calvarium, cervical spine, thoracic spine, lumbar spine, pelvis or in the upper and lower extremities with the exception of uptake in the right hand at the base of the thumb and in the index finger MCP articulation, likely arthritic uptake. No hepatic or splenic uptake is identified. No soft tissue organ uptake is identified. There is radiolabeled urine in the bladder. Additionally, there is radial labeling external to the patient along the perineum, likely within Depends diaper. The flow. Neck and supraclavicular areas: There are no hypermetabolic foci. Chest: There are no hypermetabolic foci. Abdomen, pelvis and upper thighs: There are no hypermetabolic foci. There is soft tissue radial labeling of the forearms and distal lower extremities bilaterally. There is a focus of radial labeling in the soft tissues of the right heel medially to the posterior calcaneus. This could represent a decubitus ulcer. Impression: There is no skeletal radiolabeling. There is no soft tissue organ radial labeling. There is radiolabeling in the hands, likely arthritic. There is radiolabeling of the right heel as described, possibly a decubitus ulcer. The study is performed with 8.9 mCi of F 18 FDG. A Electronically Signed by Alexis Linn MD 07/25/2019 03:50 P
== END ==
LOC: M PLARAD 09:27
PROVIDERS: ATTEND Internal Medicine Hematology & Oncology
DX: C90.00 Multiple myeloma not having achieved remission (principal)
CPT/HCPCS: 78816; A9552

== ENCOUNTER → 2020-02-15 | Outpatient (REF) | payer MEDICARE ==
[~2020-02-15] MED LIST changes: +B-12100020 PO; +CEPH500C PO; +D31000TA2 PO; +OSTETAB2 PO; -VITAD1000T PO
[2020-02-15 18:14] LABS: BASO # 0.1 10^3/uL (0.0-0.2); BASO % 1.1 % (0.0-1.0); EOS # 0.1 10^3/uL (0.0-0.5); EOS % 2.2 % (0.0-3.0); HEMATOCRIT 36.2 % (36.0-47.0); HEMOGLOBIN 11.7 g/dl (12.0-15.5); LYMPH # 1.6 10^3/uL (1.5-5.0); LYMPH % 24.5 % (24.0-44.0); MEAN CORPUSCULAR HEMOGLOBIN 32.8 pg (27.0-33.0); MEAN CORPUSCULAR HGB CONC 32.3 g/dl (32.0-36.5); MEAN CORPUSCULAR VOLUME 101.4 fl (80.0-96.0); MONO # 0.7 10^3/uL (0.0-0.8); MONO % 10.8 % (0.0-5.0); NEUTROPHILS # 3.9 10^3/uL (1.5-8.5); NEUTROPHILS % 61.1 % (36.0-66.0); PLATELET COUNT, AUTOMATED 124 10^3/uL (150-450); RED BLOOD COUNT 3.57 10^6/uL (4.00-5.40); WHITE BLOOD COUNT 6.4 10^3/uL (4.0-10.0)
[2020-02-15 18:32] LABS: CALCIUM LEVEL 8.7 MG/DL (8.8-10.2); CREATININE FOR GFR 1.27 MG/DL (0.55-1.30); POTASSIUM SERUM 4.4 MEQ/L (3.5-5.1)
== END ==
LOC: M LABDRWAD 16:42
PROVIDERS: ATTEND Family Medicine
DX: I13.0 Hypertensive heart and chronic kidney disease with heart failure and stage 1 through stage 4 chronic kidney disease, or unspecified chronic kidney disease (principal); C90.00 Multiple myeloma not having achieved remission

== ENCOUNTER → 2020-10-15 | Outpatient (REF) | payer MEDICARE ==
[~2020-10-15] MED LIST changes: +ACYC1TAB PO; -ACYC400T PO; +BACTDSTA PO; +COVI30VI IM; +REVL2.5C PO
[2020-10-15 19:42] LABS: ALBUMIN 3.5 GM/DL (3.2-5.2); BILIRUBIN,TOTAL 0.4 MG/DL (0.2-1.0); CREATININE FOR GFR 1.14 MG/DL (0.55-1.30); GLOMERULAR FILTRATION RATE 49.9 (>39); TOTAL PROTEIN 6.1 GM/DL (6.4-8.2)
== END ==
LOC: M SFHCADAM 15:22
PROVIDERS: ATTEND Physician Assistant
DX: I82.409 Acute embolism and thrombosis of unspecified deep veins of unspecified lower extremity (principal); I50.9 Heart failure, unspecified

== ENCOUNTER → 2021-01-29 | Outpatient (REF) | payer MEDICARE ==
[~2021-01-29] MED LIST changes: +NITR100C2 PO; +OMEP40CA4 PO; -OMEP40CA97 PO
[2021-01-29 13:34] LABS: HEMATOCRIT 39.1 % (36.0-47.0); HEMOGLOBIN 12.7 g/dl (12.0-15.5); MEAN CORPUSCULAR HGB CONC 32.5 g/dl (32.0-36.5); MEAN CORPUSCULAR VOLUME 95.4 fl (80.0-96.0); PLATELET COUNT, AUTOMATED 175 10^3/uL (150-450); WHITE BLOOD COUNT 5.1 10^3/uL (4.0-10.0)
[2021-01-29 14:58] LABS: ALBUMIN 3.5 GM/DL (3.2-5.2); BILIRUBIN,TOTAL 0.8 MG/DL (0.2-1.0); CALCIUM LEVEL 8.8 MG/DL (8.8-10.2); CHOLESTEROL RISK RATIO 2.292 (<5); FREE T4 1.21 NG/DL (0.76-1.46); GLOMERULAR FILTRATION RATE 57.9 (>39); POTASSIUM SERUM 4.2 MEQ/L (3.5-5.1); THYROID STIMULATING HORMONE 1.83 uIU/ML (0.358-3.740); TOTAL PROTEIN 6.1 GM/DL (6.4-8.2)
[2021-01-29 15:49] LABS: HEMOGLOBIN A1c 5.5 %
== END ==
LOC: M SFHCADAM 10:27
PROVIDERS: ATTEND Family Medicine
DX: R53.83 Other fatigue (principal); E03.9 Hypothyroidism, unspecified; N39.0 Urinary tract infection, site not specified; I13.0 Hypertensive heart and chronic kidney disease with heart failure and stage 1 through stage 4 chronic kidney disease, or unspecified chronic kidney disease; R73.01 Impaired fasting glucose; N18.30 Chronic kidney disease, stage 3 unspecified

== ENCOUNTER → 2021-07-29 | Outpatient (REF) | payer MEDICARE ==
[~2021-07-29] MED LIST changes: +CEPH500C; -D31000TA2 PO; +VITA100093 PO
[2021-07-29 17:40] LABS: HEMOGLOBIN 11.8 g/dl (12.0-15.5); MEAN CORPUSCULAR HEMOGLOBIN 30.2 pg (27.0-33.0); MEAN CORPUSCULAR HGB CONC 31.9 g/dl (32.0-36.5); MEAN CORPUSCULAR VOLUME 94.6 fl (80.0-96.0); PLATELET COUNT, AUTOMATED 160 10^3/uL (150-450); RED BLOOD COUNT 3.91 10^6/uL (4.00-5.40); WHITE BLOOD COUNT 3.5 10^3/uL (4.0-10.0)
[2021-07-29 18:13] LABS: HEMOGLOBIN A1c 5.6 %
[2021-07-29 18:14] LABS: AMYLASE 63 U/L (25-115); LIPASE 153 U/L (73-393)
[2021-07-29 18:23] LABS: ALBUMIN 3.3 GM/DL (3.2-5.2); BILIRUBIN,TOTAL 0.5 MG/DL (0.2-1.0); CALCIUM LEVEL 9.1 MG/DL (8.8-10.2); CHOLESTEROL RISK RATIO 2.183 (<5); CREATININE FOR GFR 1.13 MG/DL (0.55-1.30); FREE T4 1.22 NG/DL (0.76-1.46); GLOMERULAR FILTRATION RATE 50.2 (>39); THYROID STIMULATING HORMONE 2.73 uIU/ML (0.358-3.740); TOTAL PROTEIN 5.9 GM/DL (6.4-8.2)
== END ==
LOC: M SFHCADAM 11:25
PROVIDERS: ATTEND Family Medicine
DX: I13.0 Hypertensive heart and chronic kidney disease with heart failure and stage 1 through stage 4 chronic kidney disease, or unspecified chronic kidney disease (principal); R73.01 Impaired fasting glucose; I82.409 Acute embolism and thrombosis of unspecified deep veins of unspecified lower extremity; E03.9 Hypothyroidism, unspecified; R10.84 Generalized abdominal pain; Z51.81 Encounter for therapeutic drug level monitoring

== ENCOUNTER 2022-06-09 11:49 | Inpatient (IN) | payer MEDICARE ==
[~2022-06-09] VITALS: Ht 149.9 cm; Wt 60.0 kg
[~2022-06-09 11:49] MED LIST changes: +ACET-716 PO; +DECA4TAB PO; +POMA3CAP PO; +POMA4CAP PO; +PREG25CA PO; +[UNRECOGNIZED DRUG - CODE] PO
[2022-06-09] MEDS ORDERED: LIDOCAINE 1% MDV 20ML VIAL As Ordered ONE (12:28)
[2022-06-09] MEDS ORDERED: SPIR50TA4 PO (13:06)
[2022-06-09] MEDS ORDERED: ONDA-195 PO (13:06)
[2022-06-09] MEDS ORDERED: BACT800T5 PO (13:14)
[2022-06-09] MEDS ORDERED: MED REC COMMENT (13:25)
[2022-06-09] MEDS ORDERED: LOPE2TAB12 PO (13:27)
[2022-06-09] MEDS ORDERED: HOME MED LIST COMPLETE! XX SCH (13:35)
[2022-06-09 16:51] LABS: HEMATOCRIT 35.2 % (36.0-47.0); HEMOGLOBIN 11.4 g/dl (12.0-15.5); MEAN CORPUSCULAR HEMOGLOBIN 33.3 pg (27.0-33.0); MEAN CORPUSCULAR HGB CONC 32.4 g/dl (32.0-36.5); MEAN CORPUSCULAR VOLUME 102.9 fl (80.0-96.0); PLATELET COUNT, AUTOMATED 208 10^3/uL (150-450); RED BLOOD COUNT 3.42 10^6/uL (4.00-5.40); WHITE BLOOD COUNT 2.9 10^3/uL (4.0-10.0)
[2022-06-09 17:16] VITALS: BP 106/53
[2022-06-09 18:01] LABS: INR 0.97; PROTHROMBIN TIME 13.1 SECONDS (12.5-14.5)
[2022-06-09 18:15] LABS: CREATININE FOR GFR 1.5 MG/DL (0.55-1.30); GLOMERULAR FILTRATION RATE 36.1 (>39)
[2022-06-09] MEDS ORDERED: PILL CUTTER 1 EACH XX PRN (18:30)
[2022-06-09 19:46] LABS: BILIRUBIN,TOTAL 0.6 MG/DL (0.3-1.2); CALCIUM LEVEL 8.7 MG/DL (8.3-10.6); CREATININE FOR GFR 1.52 MG/DL (0.55-1.30); GLOMERULAR FILTRATION RATE 35.6 (>39); POTASSIUM SERUM 3.7 MMOL/L (3.5-5.1); TOTAL PROTEIN 5.6 G/DL (5.7-8.2)
[2022-06-09 20:00] VITALS: BP 107/53
[2022-06-09] MEDS: ACYCLOVIR 200 MG CAPSULE PO SCH (21:14)
[2022-06-09] MEDS: rOPINIRole 1MG TAB PO SCH (21:14)
[2022-06-09] MEDS: HEPARIN SOD (PORCINE) 5000UNITS/ML 1ML VIAL/SYRINGE SQ SCH (21:14)
[2022-06-09 22:00] VITALS: BP 116/59
[2022-06-10] VITALS (8 sets, daily range): BP systolic 103–116; BP diastolic 50–59
[2022-06-10 04:56] LABS: BASO # 0.1 10^3/uL (0.0-0.2); BASO % 1.9 % (0.0-1.0); EOS # 0.1 10^3/uL (0.0-0.5); EOS % 4.2 % (0.0-3.0); HEMOGLOBIN 10.1 g/dl (12.0-15.5); LYMPH # 0.8 10^3/uL (1.5-5.0); LYMPH % 24.9 % (24.0-44.0); MEAN CORPUSCULAR HEMOGLOBIN 33.4 pg (27.0-33.0); MEAN CORPUSCULAR HGB CONC 32.6 g/dl (32.0-36.5); MEAN CORPUSCULAR VOLUME 102.6 fl (80.0-96.0); MONO # 0.3 10^3/uL (0.0-0.8); MONO % 9.9 % (2.0-8.0); NEUTROPHILS # 1.8 10^3/uL (1.5-8.5); NEUTROPHILS % 58.8 % (36.0-66.0); PLATELET COUNT, AUTOMATED 170 10^3/uL (150-450); RED BLOOD COUNT 3.02 10^6/uL (4.00-5.40); WHITE BLOOD COUNT 3.1 10^3/uL (4.0-10.0)
[2022-06-10] MEDS: LEVOTHYROXINE 50MCG TABLET (0.05MG) PO SCH (05:22)
[2022-06-10] MEDS: HEPARIN SOD (PORCINE) 5000UNITS/ML 1ML VIAL/SYRINGE SQ SCH (05:23)
[2022-06-10] MEDS: TORSEMIDE 100 MG TAB PO SCH ×2 (08:28→17:00)
[2022-06-10] MEDS: ACYCLOVIR 200 MG CAPSULE PO SCH ×2 (08:28→20:04)
[2022-06-10] MEDS: VITAMIN D 1,000 INTERNATIONAL UNITS TABLET PO SCH (08:29)
[2022-06-10] MEDS: OMEPRAZOLE 20MG CAP PO SCH (08:29)
[2022-06-10 10:43] LABS: PROTHROMBIN TIME 13.4 SECONDS (12.5-14.5)
[2022-06-10] MEDS ORDERED: WARFARIN SOD 5MG TAB PO SCH (17:00)
[2022-06-10] MEDS: rOPINIRole 1MG TAB PO SCH (20:04)
[2022-06-11] VITALS: BP 104/52
[2022-06-11 04:00] VITALS: BP 107/52
[2022-06-11 04:41] LABS: HEMATOCRIT 30.1 % (36.0-47.0); LYMPH # 0.5 10^3/uL (1.5-5.0); LYMPH % 14.4 % (24.0-44.0); MEAN CORPUSCULAR HEMOGLOBIN 33.6 pg (27.0-33.0); MEAN CORPUSCULAR HGB CONC 33.2 g/dl (32.0-36.5); MONO # 0.2 10^3/uL (0.0-0.8); MONO % 6.4 % (2.0-8.0); NEUTROPHILS % 78.7 % (36.0-66.0); PLATELET COUNT, AUTOMATED 179 10^3/uL (150-450); RED BLOOD COUNT 2.98 10^6/uL (4.00-5.40); WHITE BLOOD COUNT 3.8 10^3/uL (4.0-10.0)
[2022-06-11 04:52] LABS: INR 0.91; PROTHROMBIN TIME 12.5 SECONDS (12.5-14.5)
[2022-06-11] MEDS: LEVOTHYROXINE 50MCG TABLET (0.05MG) PO SCH (05:27)
[2022-06-11 08:00] VITALS: BP 126/61
[2022-06-11] MEDS: OMEPRAZOLE 20MG CAP PO SCH (08:46)
[2022-06-11] MEDS: VITAMIN D 1,000 INTERNATIONAL UNITS TABLET PO SCH (08:46)
[2022-06-11] MEDS: ACYCLOVIR 200 MG CAPSULE PO SCH (08:47)
[2022-06-11] MEDS: TORSEMIDE 100 MG TAB PO SCH (08:47)
== END 2022-06-11 11:15 | disposition home or self-care (01) | DRG 200 ==
LOC: M IRPRO 11:49 → M ICU 11:50 → UNDOADMOB 17:06 → OBSVTOIN 06-10 09:19
PROVIDERS: ADMIT Internal Medicine; ATTEND Internal Medicine
PROC: 0BBC3ZX Excision of Right Upper Lung Lobe, Percutaneous Approach, Diagnostic (ICD-10-PCS; principal; 2022-06-09 13:00)
DX: J95.811 Postprocedural pneumothorax (principal); C90.00 Multiple myeloma not having achieved remission; I50.32 Chronic diastolic (congestive) heart failure; I13.0 Hypertensive heart and chronic kidney disease with heart failure and stage 1 through stage 4 chronic kidney disease, or unspecified chronic kidney disease; L97.919 Non-pressure chronic ulcer of unspecified part of right lower leg with unspecified severity; L97.929 Non-pressure chronic ulcer of unspecified part of left lower leg with unspecified severity; E03.9 Hypothyroidism, unspecified; G62.0 Drug-induced polyneuropathy; K31.84 Gastroparesis; N18.30 Chronic kidney disease, stage 3 unspecified; E55.9 Vitamin D deficiency, unspecified; R91.1 Solitary pulmonary nodule; I27.81 Cor pulmonale (chronic); R73.01 Impaired fasting glucose; M51.36 Other intervertebral disc degeneration, lumbar region; M51.34 Other intervertebral disc degeneration, thoracic region; Z86.718 Personal history of other venous thrombosis and embolism; Z98.41 Cataract extraction status, right eye; Z98.42 Cataract extraction status, left eye; Z90.79 Acquired absence of other genital organ(s); Z90.49 Acquired absence of other specified parts of digestive tract; Z83.3 Family history of diabetes mellitus; Z79.890 Hormone replacement therapy; Z79.899 Other long term (current) drug therapy; Z79.01 Long term (current) use of anticoagulants; Z88.8 Allergy status to other drugs, medicaments and biological substances; Z20.822 Contact with and (suspected) exposure to COVID-19

== ENCOUNTER → 2022-07-01 | Outpatient (CLI) | payer MEDICARE ==
[~2022-07-01] MED LIST changes: +LOPE2TAB12 PO; +MED REC COMMENT; +ONDA-195 PO; +SPIR50TA4 PO
== END ==
LOC: M RAD 16:25
PROVIDERS: ATTEND Internal Medicine Medical Oncology
DX: M12.811 Other specific arthropathies, not elsewhere classified, right shoulder (principal); M19.011 Primary osteoarthritis, right shoulder

== ENCOUNTER → 2022-07-03 | Outpatient (REF) | payer MEDICARE ==
[2022-07-03 15:49] LABS: PROTHROMBIN TIME 58.4 SECONDS (12.5-14.5)
[2022-07-03 15:58] LABS: INR 6.58
== END ==
LOC: M SFHCADAM 14:15
PROVIDERS: ATTEND Physician Assistant
DX: Z79.01 Long term (current) use of anticoagulants (principal)

== ENCOUNTER 2022-07-08 10:23 | Inpatient (IN) | payer MEDICARE ==
[~2022-07-08] VITALS: Ht 149.9 cm; Wt 60.8 kg
[2022-07-08] MEDS ORDERED: MORPHINE 2 MG/ML 1ML VIAL IV ONE (12:25)
[2022-07-08 12:27] LABS: HEMATOCRIT 39.7 % (36.0-47.0); HEMOGLOBIN 13.1 g/dl (12.0-15.5); MEAN CORPUSCULAR HEMOGLOBIN 33.8 pg (27.0-33.0); MEAN CORPUSCULAR VOLUME 102.3 fl (80.0-96.0); PLATELET COUNT, AUTOMATED 228 10^3/uL (150-450); RED BLOOD COUNT 3.88 10^6/uL (4.00-5.40); WHITE BLOOD COUNT 6.4 10^3/uL (4.0-10.0)
[2022-07-08 12:49] LABS: RSV AMPLIFICATION NEGATIVE (NEGATIVE)
[2022-07-08 12:52] LABS: CK-MB VALUE MASS < 1.0 NG/ML (<3.6)
[2022-07-08 12:53] LABS: LIPASE 50 U/L (12-53)
[2022-07-08 12:55] LABS: ALBUMIN 3.8 G/DL (3.2-5.2); ALKALINE PHOSPHATASE 91 U/L (46-116); ALT/SGPT 19 U/L (7.0-40); AST/SGOT 28 U/L (<34); BILIRUBIN,DIRECT 0.2 MG/DL (<0.4); BILIRUBIN,TOTAL 0.5 MG/DL (0.3-1.2); BLOOD UREA NITROGEN 36 MG/DL (9-23); CALCIUM LEVEL 9.4 MG/DL (8.3-10.6); CARBON DIOXIDE LEVEL 32 MMOL/L (20-31); CHLORIDE LEVEL 97 MMOL/L (98-107); CREATININE FOR GFR 2.01 MG/DL (0.55-1.30); GLOMERULAR FILTRATION RATE 25.8 (>39); GLUCOSE, FASTING 117 MG/DL (74-106); POTASSIUM SERUM 5.4 MMOL/L (3.5-5.1); SODIUM LEVEL 134 MMOL/L (136-145); TOTAL PROTEIN 6.5 G/DL (5.7-8.2)
[2022-07-08 12:56] LABS: THYROID STIMULATING HORMONE 1.535 uIU/ML (0.55-4.78)
[2022-07-08 12:59] LABS: CPK CREATINE PHOSPHOKINASE 56 U/L (34-145); MB/CK RELATIVE INDEX 1.78 (< OR =4)
[2022-07-08 13:08] LABS: ATYPICAL LYMPH 7 % (0-5); LYMPHOCYTES 5 % (16-44); MONOCYTES 2 % (0-5); NEUTROPHILS 86 % (28-66)
[2022-07-08 13:09] LABS: ANISOCYTOSIS 1+
[2022-07-08 13:10] LABS: OVALOCYTES 1+; PLATELET ESTIMATE NORMAL (NORMAL)
[2022-07-08] MEDS ORDERED: NS 500 ML IV ONE (13:25)
[2022-07-08 13:29] LABS: ERYTHROCYTE SEDIMENTATION RATE 51 mm/hr (0-30)
[2022-07-08 14:05] LABS: INR 1.06
[2022-07-08] MEDS: NS 1,000 ML IV SCH ×2 (14:55→23:52)
[2022-07-08] MEDS ORDERED: CEFEPIME HCL 1 GM in D5W MINI-BAG PLUS 50 ML IV ONE (15:40)
[2022-07-08] MEDS ORDERED: WARFARIN SOD 2.5MG TAB PO SCH (17:00)
[2022-07-08] MEDS ORDERED: LIDOCAINE 5% (LIDODERM) PATCH TD ONE (17:00)
[2022-07-08] MEDS ORDERED: HOME MED LIST COMPLETE! XX SCH (17:10)
[2022-07-08 19:30] VITALS: BP 102/42
[2022-07-08] MEDS: NORCO, ANEXSIA 5/325MG TABLET (HYDROcodone/ACETAMINOPHEN) PO PRN (19:40)
[2022-07-08] MEDS: rOPINIRole 1MG TAB PO SCH (19:40)
[2022-07-08] MEDS: ACYCLOVIR 200 MG CAPSULE PO SCH (20:08)
[2022-07-08 22:00] VITALS: BP 125/78
[2022-07-09 06:00] VITALS: BP 124/72
[2022-07-09] MEDS: LEVOTHYROXINE 50MCG TABLET (0.05MG) PO SCH (06:04)
[2022-07-09 06:32] LABS: BASO % 0.2 % (0.0-1.0); EOS % 0.2 % (0.0-3.0); HEMATOCRIT 30.8 % (36.0-47.0); LYMPH # 0.7 10^3/uL (1.5-5.0); LYMPH % 14.6 % (24.0-44.0); MEAN CORPUSCULAR HEMOGLOBIN 32.9 pg (27.0-33.0); MEAN CORPUSCULAR HGB CONC 32.1 g/dl (32.0-36.5); MEAN CORPUSCULAR VOLUME 102.3 fl (80.0-96.0); MONO # 0.3 10^3/uL (0.0-0.8); MONO % 6.8 % (2.0-8.0); NEUTROPHILS # 3.4 10^3/uL (1.5-8.5); NEUTROPHILS % 77.5 % (36.0-66.0); PLATELET COUNT, AUTOMATED 193 10^3/uL (150-450); RED BLOOD COUNT 3.01 10^6/uL (4.00-5.40); WHITE BLOOD COUNT 4.4 10^3/uL (4.0-10.0)
[2022-07-09 06:39] LABS: HEMOGLOBIN 9.9 g/dl (12.0-15.5)
[2022-07-09 06:59] LABS: CALCIUM LEVEL 8.2 MG/DL (8.3-10.6); CREATININE FOR GFR 1.46 MG/DL (0.55-1.30); GLOMERULAR FILTRATION RATE 37.3 (>39); POTASSIUM SERUM 4.6 MMOL/L (3.5-5.1)
[2022-07-09] MEDS ORDERED: NON-FORMULARY COMPOUNDED MEDICATION PO SCH (09:00)
[2022-07-09] MEDS ORDERED: POMALYST 3 MG PO SCH (09:00)
[2022-07-09] MEDS: MULTIVITAMINS/MINERALS THERAP 1 TAB PO SCH (09:17)
[2022-07-09] MEDS: VITAMIN D 1,000 INTERNATIONAL UNITS TABLET PO SCH (09:17)
[2022-07-09] MEDS: CYANOCOBALAMIN 500 MCG TAB PO SCH (09:17)
[2022-07-09] MEDS: ACYCLOVIR 200 MG CAPSULE PO SCH ×2 (09:18→20:33)
[2022-07-09] MEDS: NORCO, ANEXSIA 5/325MG TABLET (HYDROcodone/ACETAMINOPHEN) PO PRN (09:19)
[2022-07-09] MEDS: OMEPRAZOLE 20MG CAP PO SCH (09:19)
[2022-07-09] MEDS ORDERED: KETOROLAC 30 MG/ML 1ML VIAL IV ONE (12:20)
[2022-07-09 14:00] VITALS: BP 119/52
[2022-07-09] MEDS: LIDOCAINE 5% (LIDODERM) PATCH TD SCH ×2 (15:35)
[2022-07-09] MEDS ORDERED: WARFARIN SOD 2.5MG TAB PO SCH (17:00)
[2022-07-09] MEDS: rOPINIRole 1MG TAB PO SCH (20:32)
[2022-07-10] MEDS: LEVOTHYROXINE 50MCG TABLET (0.05MG) PO SCH (05:40)
[2022-07-10 06:00] VITALS: BP 117/49
[2022-07-10 06:01] LABS: BASO % 1.2 % (0.0-1.0); EOS # 0.3 10^3/uL (0.0-0.5); HEMATOCRIT 30.9 % (36.0-47.0); LYMPH # 0.7 10^3/uL (1.5-5.0); MEAN CORPUSCULAR HEMOGLOBIN 33.3 pg (27.0-33.0); MEAN CORPUSCULAR HGB CONC 32.4 g/dl (32.0-36.5); MONO # 0.3 10^3/uL (0.0-0.8); NEUTROPHILS % 60.2 % (36.0-66.0); PLATELET COUNT, AUTOMATED 165 10^3/uL (150-450); WHITE BLOOD COUNT 3.2 10^3/uL (4.0-10.0)
[2022-07-10 06:27] LABS: CALCIUM LEVEL 8.3 MG/DL (8.3-10.6); CREATININE FOR GFR 1.21 MG/DL (0.55-1.30); GLOMERULAR FILTRATION RATE 46.3 (>39); POTASSIUM SERUM 4.6 MMOL/L (3.5-5.1)
[2022-07-10] MEDS: PERCOCET 5MG/325MG TAB PO PRN ×2 (07:34→17:23)
[2022-07-10] MEDS ORDERED: BACTRIM 80MG/400MG TAB PO SCH (09:00)
[2022-07-10] MEDS: LIDOCAINE 5% (LIDODERM) PATCH TD SCH ×2 (09:22→09:23)
[2022-07-10] MEDS: MULTIVITAMINS/MINERALS THERAP 1 TAB PO SCH (09:23)
[2022-07-10] MEDS: ACYCLOVIR 200 MG CAPSULE PO SCH ×2 (09:23→21:23)
[2022-07-10] MEDS: OMEPRAZOLE 20MG CAP PO SCH (09:24)
[2022-07-10] MEDS: VITAMIN D 1,000 INTERNATIONAL UNITS TABLET PO SCH (09:24)
[2022-07-10] MEDS: OYSTER SHELL CALCIUM 500 MG TAB PO SCH (09:25)
[2022-07-10] MEDS: CYANOCOBALAMIN 500 MCG TAB PO SCH (09:25)
[2022-07-10] MEDS: TORSEMIDE 20 MG TAB PO SCH ×2 (09:26→17:22)
[2022-07-10] MEDS: CEFDINIR 300 MG CAP (OMNICEF) PO SCH ×2 (09:26→21:23)
[2022-07-10] MEDS: SPIRONOLACTONE 50 MG TAB PO SCH ×2 (09:28→17:24)
[2022-07-10] MEDS: NORCO, ANEXSIA 5/325MG TABLET (HYDROcodone/ACETAMINOPHEN) PO PRN ×2 (12:14→21:47)
[2022-07-10 12:18] LABS: INR 1.11; PARTIAL THROMBOPLASTIN TIME 23.3 SECONDS (24.8-34.2); PROTHROMBIN TIME 14.5 SECONDS (12.5-14.5)
[2022-07-10] MEDS: LOPERAMIDE 2 MG CAPLET PO PRN ×2 (13:46→17:22)
[2022-07-10 14:20] VITALS: BP 115/72
[2022-07-10] MEDS ORDERED: WARFARIN SOD 4MG TAB PO SCH (17:00)
[2022-07-10] MEDS: LACTOBACILLUS ACIDOPHILUS CAP (BACID) PO SCH (17:22)
[2022-07-10] MEDS: rOPINIRole 1MG TAB PO SCH (21:23)
[2022-07-10 22:00] VITALS: BP 110/56
[2022-07-11 06:00] VITALS: BP 102/52
[2022-07-11] MEDS: LEVOTHYROXINE 50MCG TABLET (0.05MG) PO SCH (06:48)
[2022-07-11 07:01] LABS: BASO # 0.1 10^3/uL (0.0-0.2); BASO % 2.2 % (0.0-1.0); EOS # 0.2 10^3/uL (0.0-0.5); EOS % 4.7 % (0.0-3.0); HEMATOCRIT 31.6 % (36.0-47.0); HEMOGLOBIN 10.6 g/dl (12.0-15.5); LYMPH # 1.1 10^3/uL (1.5-5.0); MEAN CORPUSCULAR HEMOGLOBIN 34.3 pg (27.0-33.0); MEAN CORPUSCULAR HGB CONC 33.5 g/dl (32.0-36.5); MEAN CORPUSCULAR VOLUME 102.3 fl (80.0-96.0); MONO # 0.4 10^3/uL (0.0-0.8); MONO % 9.7 % (2.0-8.0); NEUTROPHILS # 2.2 10^3/uL (1.5-8.5); NEUTROPHILS % 54.9 % (36.0-66.0); PLATELET COUNT, AUTOMATED 160 10^3/uL (150-450); RED BLOOD COUNT 3.09 10^6/uL (4.00-5.40)
[2022-07-11 07:14] LABS: INR 1.18; PARTIAL THROMBOPLASTIN TIME 24.7 SECONDS (24.8-34.2); PROTHROMBIN TIME 15.2 SECONDS (12.5-14.5)
[2022-07-11 07:31] LABS: CALCIUM LEVEL 7.3 MG/DL (8.3-10.6); CREATININE FOR GFR 1.07 MG/DL (0.55-1.30); GLOMERULAR FILTRATION RATE 53.4 (>39); POTASSIUM SERUM 4.5 MMOL/L (3.5-5.1)
[2022-07-11] MEDS ORDERED: JANT4TAB PO (08:15)
[2022-07-11] MEDS ORDERED: RISATAB3 PO (08:15)
[2022-07-11] MEDS ORDERED: PERCOCET PO (08:15)
[2022-07-11] MEDS ORDERED: TORS100T PO (08:15)
[2022-07-11] MEDS ORDERED: K-TA10TA2 PO (08:15)
[2022-07-11] MEDS ORDERED: CEFD300CAP PO (08:15)
[2022-07-11] MEDS: LIDOCAINE 5% (LIDODERM) PATCH TD SCH ×2 (08:31)
[2022-07-11] MEDS: PERCOCET 5MG/325MG TAB PO PRN (08:32)
[2022-07-11] MEDS: ACYCLOVIR 200 MG CAPSULE PO SCH (08:33)
[2022-07-11] MEDS: MULTIVITAMINS/MINERALS THERAP 1 TAB PO SCH (08:33)
[2022-07-11] MEDS: OYSTER SHELL CALCIUM 500 MG TAB PO SCH (08:33)
[2022-07-11] MEDS: OMEPRAZOLE 20MG CAP PO SCH (08:33)
[2022-07-11] MEDS: VITAMIN D 1,000 INTERNATIONAL UNITS TABLET PO SCH (08:33)
[2022-07-11] MEDS: LACTOBACILLUS ACIDOPHILUS CAP (BACID) PO SCH (08:33)
[2022-07-11] MEDS: TORSEMIDE 20 MG TAB PO SCH (08:33)
[2022-07-11] MEDS: CEFDINIR 300 MG CAP (OMNICEF) PO SCH (08:33)
[2022-07-11] MEDS: CYANOCOBALAMIN 500 MCG TAB PO SCH (08:34)
[2022-07-11] MEDS: SPIRONOLACTONE 50 MG TAB PO SCH (08:34)
[2022-07-11] MEDS: LOPERAMIDE 2 MG CAPLET PO PRN (14:03)
[2022-07-11] MEDS: NORCO, ANEXSIA 5/325MG TABLET (HYDROcodone/ACETAMINOPHEN) PO PRN (14:04)
== END 2022-07-11 14:50 | disposition home health service (06) | DRG 206 ==
LOC: M ED 10:23 → M ED INP 16:55 → M MS5PR 19:15
PROVIDERS: ADMIT Internal Medicine Nephrology; ATTEND Internal Medicine Nephrology
DX: S22.32XA Fracture of one rib, left side, initial encounter for closed fracture (principal); C90.00 Multiple myeloma not having achieved remission; I50.42 Chronic combined systolic (congestive) and diastolic (congestive) heart failure; I13.0 Hypertensive heart and chronic kidney disease with heart failure and stage 1 through stage 4 chronic kidney disease, or unspecified chronic kidney disease; N17.9 Acute kidney failure, unspecified; N39.0 Urinary tract infection, site not specified; M19.011 Primary osteoarthritis, right shoulder; N18.30 Chronic kidney disease, stage 3 unspecified; E86.0 Dehydration; R91.1 Solitary pulmonary nodule; I25.10 Atherosclerotic heart disease of native coronary artery without angina pectoris; J44.9 Chronic obstructive pulmonary disease, unspecified; Z86.73 Personal history of transient ischemic attack (TIA), and cerebral infarction without residual deficits; K21.9 Gastro-esophageal reflux disease without esophagitis; E03.9 Hypothyroidism, unspecified; E55.9 Vitamin D deficiency, unspecified; K31.84 Gastroparesis; S22.070D Wedge compression fracture of T9-T10 vertebra, subsequent encounter for fracture with routine healing; G62.9 Polyneuropathy, unspecified; B96.1 Klebsiella pneumoniae [K. pneumoniae] as the cause of diseases classified elsewhere; Z90.79 Acquired absence of other genital organ(s); Z30.49 Encounter for surveillance of other contraceptives; Z98.41 Cataract extraction status, right eye; Z98.42 Cataract extraction status, left eye; Z92.21 Personal history of antineoplastic chemotherapy; Z86.718 Personal history of other venous thrombosis and embolism; Z79.890 Hormone replacement therapy; Z79.899 Other long term (current) drug therapy; Z79.01 Long term (current) use of anticoagulants; Z88.8 Allergy status to other drugs, medicaments and biological substances; Z20.822 Contact with and (suspected) exposure to COVID-19

== ENCOUNTER → 2022-11-18 | Outpatient (REF) | payer MEDICARE, MEDICAID ==
[~2022-11-18] MED LIST changes: +ATOV5SUS PO; +CEFD300CAP PO; +GLYCCAP PO; +JANT4TAB PO; -K-TA10TA2 PO; +PERCOCET PO; +POTA-165 PO; +RISATAB3 PO
[2022-11-18 09:29] LABS: HEMATOCRIT 35.4 % (36.0-47.0); HEMOGLOBIN 11.1 g/dl (12.0-15.5); MEAN CORPUSCULAR HEMOGLOBIN 29.1 pg (27.0-33.0); MEAN CORPUSCULAR HGB CONC 31.4 g/dl (32.0-36.5); MEAN CORPUSCULAR VOLUME 92.7 fl (80.0-96.0); PLATELET COUNT, AUTOMATED 173 10^3/uL (150-450); RED BLOOD COUNT 3.82 10^6/uL (4.00-5.40); WHITE BLOOD COUNT 3.9 10^3/uL (4.0-10.0)
[2022-11-18 09:40] LABS: INR 1.97; PROTHROMBIN TIME 22.8 SECONDS (12.5-14.5)
[2022-11-18 09:57] LABS: ALBUMIN 3.2 G/DL (3.2-5.2); CALCIUM LEVEL 8.5 MG/DL (8.3-10.6); CREATININE FOR GFR 1.34 MG/DL (0.55-1.30); GLOMERULAR FILTRATION RATE 41.2 (>39); PHOSPHORUS LEVEL 3.8 MG/DL (2.4-5.1); POTASSIUM SERUM 4.5 MMOL/L (3.5-5.1); PTH INTACT 49.5 PG/ML (18.5-88.0)
== END ==
PROVIDERS: ATTEND Internal Medicine Nephrology
DX: N18.32 Chronic kidney disease, stage 3b (principal); N25.81 Secondary hyperparathyroidism of renal origin; D63.1 Anemia in chronic kidney disease

== ENCOUNTER → 2022-11-23 | Outpatient (CLI) | payer MEDICARE, MEDICAID | LOC: M RAD 08:59 | PROVIDERS: ATTEND Internal Medicine Medical Oncology | DX: C90.02 Multiple myeloma in relapse (principal) ==

== ENCOUNTER → 2022-11-26 | Outpatient (REF) | payer MEDICARE ==
[~2022-11-26] MED LIST changes: +CEFD300C PO; +WARF-58 PO
[2022-11-27 10:46] LABS: APPEARANCE, URINE HAZY (CLEAR); BACTERIA, URINE AUTO NEGATIVE (NEGATIVE); BILIRUBIN, URINE AUTO NEGATIVE (NEGATIVE); BLOOD, URINE BLOOD NEGATIVE (NEGATIVE); COLOR, URINE YELLOW (YELLOW); GLUCOSE, URINE (UA) AUTO NEGATIVE (NEGATIVE); KETONE, URINE AUTO NEGATIVE (NEGATIVE); LEUKOCYTE ESTERASE, URINE AUTO 1+ (NEGATIVE); NITRITE, URINE AUTO NEGATIVE (NEGATIVE); PROTEIN, URINE AUTO NEGATIVE (NEGATIVE); RBC, URINE AUTO 2 /HPF (0-3); SPECIFIC GRAVITY URINE AUTO 1.008 (1.002-1.035); SQUAMOUS EPITHELIAL CELL UR AU 0 /HPF (0-6); UROBILINOGEN, URINE AUTO 0.2 mg/dL (0.0-2.0); WBC, URINE AUTO 68 /HPF (0-3)
== END ==
LOC: M SFHCADAM 16:53
PROVIDERS: ATTEND Family Medicine
DX: R30.0 Dysuria (principal)

== ENCOUNTER 2022-12-01 06:42 | Emergency (ER) | payer MEDICARE, MEDICAID ==
[~2022-12-01] VITALS: Ht 149.9 cm; Wt 61.8 kg
[~2022-12-01 06:42] MED LIST changes: -CEFD300C PO; -ROPI0.5T3 PO; +ROPI0.5T33 PO; -WARF-58 PO
[2022-12-01] MEDS ORDERED: WARF-58 PO (06:53)
[2022-12-01 08:22] LABS: HEMATOCRIT 34.8 % (36.0-47.0); HEMOGLOBIN 10.9 g/dl (12.0-15.5); MEAN CORPUSCULAR HEMOGLOBIN 28.2 pg (27.0-33.0); MEAN CORPUSCULAR HGB CONC 31.3 g/dl (32.0-36.5); MEAN CORPUSCULAR VOLUME 89.9 fl (80.0-96.0); PLATELET COUNT, AUTOMATED 163 10^3/uL (150-450); RED BLOOD COUNT 3.87 10^6/uL (4.00-5.40); WHITE BLOOD COUNT 2.7 10^3/uL (4.0-10.0)
[2022-12-01 08:44] LABS: ALBUMIN 3.4 G/DL (3.2-5.2); BILIRUBIN,DIRECT 0.2 MG/DL (<0.4); BILIRUBIN,TOTAL 0.6 MG/DL (0.3-1.2); CALCIUM LEVEL 9.2 MG/DL (8.3-10.6); CREATININE FOR GFR 1.28 MG/DL (0.55-1.30); GLOMERULAR FILTRATION RATE 43.4 (>39); POTASSIUM SERUM 4.2 MMOL/L (3.5-5.1); TOTAL PROTEIN 5.3 G/DL (5.7-8.2)
[2022-12-01] MEDS ORDERED: CEFEPIME HCL 1 GM in D5W MINI-BAG PLUS 50 ML IV ONE (08:50)
[2022-12-01] MEDS ORDERED: NS 500 ML IV ONE (08:50)
[2022-12-01 09:12] LABS: ATYPICAL LYMPH 2 % (0-5); BASOPHILS 1 % (0-1); EOSINOPHILS 1 % (0-3); LYMPHOCYTES 26 % (16-44); NEUTROPHILS 62 % (28-66)
[2022-12-01 09:16] LABS: HYPOCHROMASIA 2+; PLATELET ESTIMATE NORMAL (NORMAL)
[2022-12-01] MEDS ORDERED: CEFD300C PO (09:27)
[2022-12-01 10:46] VITALS: BP 109/56; TEMP 97.2; O2SAT 99
[2022-12-04] MEDS ORDERED: MONU5.636 PO (13:09)
== END 2022-12-01 11:08 | disposition home or self-care (01) ==
LOC: M ED 06:42
DX: N30.00 Acute cystitis without hematuria (principal); I10 Essential (primary) hypertension; J44.9 Chronic obstructive pulmonary disease, unspecified; Z86.73 Personal history of transient ischemic attack (TIA), and cerebral infarction without residual deficits; Z92.21 Personal history of antineoplastic chemotherapy; G62.89 Other specified polyneuropathies; Z79.899 Other long term (current) drug therapy; Z79.02 Long term (current) use of antithrombotics/antiplatelets; Z88.8 Allergy status to other drugs, medicaments and biological substances
CPT/HCPCS: 80048; 80076; 81001; 83605; 85025; 87040; 87088; 87186; 93041; 94760; 96374; 99285; J0692

== ENCOUNTER → 2022-12-07 | Outpatient (REF) | payer MEDICARE, MEDICAID ==
[~2022-12-07] MED LIST changes: +CEFD300C PO; +MONU5.636 PO; +WARF-58 PO
[2022-12-07 16:34] LABS: APPEARANCE, URINE CLEAR (CLEAR); BACTERIA, URINE AUTO NEGATIVE (NEGATIVE); BILIRUBIN, URINE AUTO NEGATIVE (NEGATIVE); BLOOD, URINE BLOOD NEGATIVE (NEGATIVE); COLOR, URINE YELLOW (YELLOW); GLUCOSE, URINE (UA) AUTO NEGATIVE (NEGATIVE); KETONE, URINE AUTO NEGATIVE (NEGATIVE); LEUKOCYTE ESTERASE, URINE AUTO NEGATIVE (NEGATIVE); MUCUS, URINE SMALL (NEGATIVE); NITRITE, URINE AUTO NEGATIVE (NEGATIVE); PROTEIN, URINE AUTO NEGATIVE (NEGATIVE); RBC, URINE AUTO 0 /HPF (0-3); SPECIFIC GRAVITY URINE AUTO 1.005 (1.002-1.035); SQUAMOUS EPITHELIAL CELL UR AU 0 /HPF (0-6); UROBILINOGEN, URINE AUTO 0.2 mg/dL (0.0-2.0); WBC, URINE AUTO 0 /HPF (0-3)
== END ==
LOC: M SFHCADAM 16:16
PROVIDERS: ATTEND Family Medicine
DX: N30.01 Acute cystitis with hematuria (principal)

== ENCOUNTER → 2022-12-09 | Outpatient (REF) | payer MEDICARE ==
[2022-11-09 11:30] LABS: HEMATOCRIT 34.1 % (36.0-47.0); MEAN CORPUSCULAR HEMOGLOBIN 30.3 pg (27.0-33.0); MEAN CORPUSCULAR HGB CONC 32.3 g/dl (32.0-36.5); MEAN CORPUSCULAR VOLUME 93.9 fl (80.0-96.0); PLATELET COUNT, AUTOMATED 183 10^3/uL (150-450); RED BLOOD COUNT 3.63 10^6/uL (4.00-5.40)
[2022-11-09 11:40] LABS: INR 1.77; PROTHROMBIN TIME 20.9 SECONDS (12.5-14.5)
[2022-11-09 12:00] LABS: ALBUMIN 3.3 G/DL (3.2-5.2); CALCIUM LEVEL 8.9 MG/DL (8.3-10.6); CREATININE FOR GFR 1.22 MG/DL (0.55-1.30); GLOMERULAR FILTRATION RATE 45.9 (>39); PHOSPHORUS LEVEL 3.1 MG/DL (2.4-5.1); POTASSIUM SERUM 4.6 MMOL/L (3.5-5.1); PTH INTACT 90.5 PG/ML (18.5-88.0)
[~2022-12-09] MED LIST changes: +LEVO1TAB39 PO
== END ==
PROVIDERS: ATTEND Physician Assistant
DX: I10 Essential (primary) hypertension (principal); Z79.899 Other long term (current) drug therapy

== ENCOUNTER → 2022-12-10 | Outpatient (CLI) | payer MEDICARE, MEDICAID ==
[~2022-12-10] MED LIST changes: -LEVO1TAB39 PO
== END ==
LOC: M WHC 07:15
PROVIDERS: ATTEND Internal Medicine Medical Oncology
DX: C90.00 Multiple myeloma not having achieved remission (principal); Z12.31 Encounter for screening mammogram for malignant neoplasm of breast

== ENCOUNTER 2022-12-29 21:47 | Emergency (ER) | payer MEDICARE, MEDICAID ==
[~2022-12-29] VITALS: Ht 147.3 cm; Wt 66.8 kg
[~2022-12-29 21:47] MED LIST changes: +LEVO1TAB39 PO
[2022-12-29 22:06] VITALS: TEMP 97.9
[2022-12-29 23:15] LABS: HEMATOCRIT 31.3 % (36.0-47.0); HEMOGLOBIN 9.9 g/dl (12.0-15.5); MEAN CORPUSCULAR HEMOGLOBIN 27.2 pg (27.0-33.0); MEAN CORPUSCULAR HGB CONC 31.6 g/dl (32.0-36.5); PLATELET COUNT, AUTOMATED 159 10^3/uL (150-450); RED BLOOD COUNT 3.64 10^6/uL (4.00-5.40); WHITE BLOOD COUNT 16.8 10^3/uL (4.0-10.0)
[2022-12-29 23:37] LABS: BILIRUBIN,TOTAL 0.4 MG/DL (0.3-1.2); CALCIUM LEVEL 8.3 MG/DL (8.3-10.6); CREATININE FOR GFR 1.33 MG/DL (0.55-1.30); GLOMERULAR FILTRATION RATE 41.4 (>39); MAGNESIUM LEVEL 1.5 MG/DL (1.8-2.4); POTASSIUM SERUM 3.7 MMOL/L (3.5-5.1)
[2022-12-30 00:01] LABS: ATYPICAL LYMPH 1 % (0-5); HYPOCHROMASIA 1+; LYMPHOCYTES 13 % (16-44); MONOCYTES 12 % (0-5); NEUTROPHILS 72 % (28-66); PLATELET CLUMPS SMALL AMT; PLATELET ESTIMATE NORMAL (NORMAL)
[2022-12-30 00:02] LABS: DOHLE BODIES 1+
[2022-12-30 00:08] LABS: FREE T4 1.17 NG/DL (0.89-1.76); THYROID STIMULATING HORMONE 3.818 uIU/ML (0.55-4.78)
[2022-12-30 01:15] VITALS: BP 98/51
[2022-12-30 01:17] VITALS: O2SAT 94
== END 2022-12-30 02:18 | disposition home or self-care (01) ==
LOC: M ED 21:47
DX: R00.2 Palpitations (principal); B34.1 Enterovirus infection, unspecified; Z79.01 Long term (current) use of anticoagulants; Z79.899 Other long term (current) drug therapy; Z88.8 Allergy status to other drugs, medicaments and biological substances

== ENCOUNTER → 2022-12-30 | Outpatient (REF) | payer MEDICARE, MEDICAID ==
[2022-12-30 08:34] LABS: INR 1.63; PROTHROMBIN TIME 19.6 SECONDS (12.5-14.5)
== END ==
PROVIDERS: ATTEND Family Medicine
DX: I48.91 Unspecified atrial fibrillation (principal)

== ENCOUNTER → 2023-01-22 | Outpatient (REF) | payer MEDICARE, MEDICAID ==
[2023-01-22 08:25] LABS: HEMATOCRIT 35.4 % (36.0-47.0); HEMOGLOBIN 11.1 g/dl (12.0-15.5); MEAN CORPUSCULAR HEMOGLOBIN 26.4 pg (27.0-33.0); MEAN CORPUSCULAR HGB CONC 31.4 g/dl (32.0-36.5); MEAN CORPUSCULAR VOLUME 84.3 fl (80.0-96.0); PLATELET COUNT, AUTOMATED 209 10^3/uL (150-450); WHITE BLOOD COUNT 6.5 10^3/uL (4.0-10.0)
[2023-01-26 10:10] LABS: Methylmalonic Acid 294 nmol/L (0-378)
== END ==
PROVIDERS: ATTEND Nurse Practitioner
DX: D38.1 Neoplasm of uncertain behavior of trachea, bronchus and lung (principal)

== ENCOUNTER → 2023-02-03 | Outpatient (REF) | payer MEDICARE, MEDICAID ==
[2023-02-03 09:25] LABS: BASO # 0.1 10^3/uL (0.0-0.2); BASO % 0.7 % (0.0-1.0); EOS # 0.1 10^3/uL (0.0-0.5); EOS % 1.3 % (0.0-3.0); HEMATOCRIT 36.4 % (36.0-47.0); HEMOGLOBIN 11.2 g/dl (12.0-15.5); LYMPH # 1.2 10^3/uL (1.5-5.0); LYMPH % 17.3 % (24.0-44.0); MEAN CORPUSCULAR HEMOGLOBIN 26.4 pg (27.0-33.0); MEAN CORPUSCULAR HGB CONC 30.8 g/dl (32.0-36.5); MEAN CORPUSCULAR VOLUME 85.6 fl (80.0-96.0); MONO # 0.4 10^3/uL (0.0-0.8); MONO % 5.3 % (2.0-8.0); NEUTROPHILS # 5.2 10^3/uL (1.5-8.5); PLATELET COUNT, AUTOMATED 223 10^3/uL (150-450); RED BLOOD COUNT 4.25 10^6/uL (4.00-5.40); WHITE BLOOD COUNT 6.9 10^3/uL (4.0-10.0)
[2023-02-03 09:54] LABS: ALBUMIN 3.3 G/DL (3.2-5.2); CALCIUM LEVEL 9.1 MG/DL (8.3-10.6); CREATININE FOR GFR 1.19 MG/DL (0.55-1.30); GLOMERULAR FILTRATION RATE 47.1 (>39); PHOSPHORUS LEVEL 2.9 MG/DL (2.4-5.1); POTASSIUM SERUM 4.1 MMOL/L (3.5-5.1); PTH INTACT 72.4 PG/ML (18.5-88.0); TOTAL 25(OH) VITAMIN D 32.2 NG/ML (20.0-100.0)
== END ==
PROVIDERS: ATTEND Internal Medicine Nephrology
DX: N18.32 Chronic kidney disease, stage 3b (principal); N25.81 Secondary hyperparathyroidism of renal origin; D63.1 Anemia in chronic kidney disease; E55.9 Vitamin D deficiency, unspecified

== ENCOUNTER 2023-02-15 11:33 | Inpatient (IN) | payer MEDICARE, MEDICAID ==
[~2023-02-15] VITALS: Ht 147.3 cm; Wt 62.9 kg
[2023-02-15 12:30] LABS: BASO % 0.6 % (0.0-1.0); EOS # 0.1 10^3/uL (0.0-0.5); EOS % 1.4 % (0.0-3.0); HEMATOCRIT 35.6 % (36.0-47.0); HEMOGLOBIN 10.9 g/dl (12.0-15.5); LYMPH # 0.9 10^3/uL (1.5-5.0); LYMPH % 17.4 % (24.0-44.0); MEAN CORPUSCULAR HEMOGLOBIN 26.2 pg (27.0-33.0); MEAN CORPUSCULAR HGB CONC 30.6 g/dl (32.0-36.5); MEAN CORPUSCULAR VOLUME 85.6 fl (80.0-96.0); MONO # 0.5 10^3/uL (0.0-0.8); MONO % 10.3 % (2.0-8.0); NEUTROPHILS # 3.4 10^3/uL (1.5-8.5); NEUTROPHILS % 68.5 % (36.0-66.0); PLATELET COUNT, AUTOMATED 187 10^3/uL (150-450); RED BLOOD COUNT 4.16 10^6/uL (4.00-5.40); WHITE BLOOD COUNT 4.9 10^3/uL (4.0-10.0)
[2023-02-15 12:44] LABS: INR 2.47; PROTHROMBIN TIME 26.1 SECONDS (12.5-14.5)
[2023-02-15 12:53] LABS: ALBUMIN 3.1 G/DL (3.2-5.2); BILIRUBIN,DIRECT 0.2 MG/DL (<0.4); BILIRUBIN,TOTAL 0.6 MG/DL (0.3-1.2); CALCIUM LEVEL 8.4 MG/DL (8.3-10.6); CREATININE FOR GFR 1.05 MG/DL (0.55-1.30); GLOMERULAR FILTRATION RATE 54.4 (>39); POTASSIUM SERUM 3.8 MMOL/L (3.5-5.1); TOTAL PROTEIN 5.4 G/DL (5.7-8.2)
[2023-02-15 12:55] LABS: THYROID STIMULATING HORMONE 2.171 uIU/ML (0.55-4.78)
[2023-02-15 12:59] LABS: PROCALCITONIN 0.07 ng/ml
[2023-02-15] MEDS ORDERED: CEFEPIME HCL 2 GM in D5W MINI-BAG PLUS 50 ML IV ONE (13:25)
[2023-02-15] MEDS ORDERED: MED REC IN PROGRESS XX SCH (14:40)
[2023-02-15] MEDS ORDERED: VITATAB73 PO (16:13)
[2023-02-15] MEDS ORDERED: TORS100T PO (16:13)
[2023-02-15] MEDS ORDERED: BACT800T5 PO (16:13)
[2023-02-15] MEDS ORDERED: ONDA-195 PO ×2 (16:13→16:24)
[2023-02-15] MEDS ORDERED: ROPI1TAB73 PO (16:13)
[2023-02-15] MEDS ORDERED: ATOV750S PO (16:13)
[2023-02-15] MEDS ORDERED: LEVO50CA PO (16:13)
[2023-02-15] MEDS ORDERED: POTA1TAB24 PO (16:13)
[2023-02-15 16:20] VITALS: BP 105/61; TEMP 98.4; O2SAT 99
[2023-02-15] MEDS ORDERED: ACYC1TAB PO (16:24)
[2023-02-15] MEDS ORDERED: VITA-168 PO (16:24)
[2023-02-15] MEDS ORDERED: CALC250T PO (16:24)
[2023-02-15] MEDS ORDERED: HOME MED LIST COMPLETE! XX SCH (16:25)
[2023-02-15] MEDS: SPIRONOLACTONE 50 MG TAB PO SCH (16:41)
[2023-02-15] MEDS: WARFARIN SOD 3MG TAB PO SCH (16:41)
[2023-02-15 20:09] VITALS: BP 108/53; TEMP 98.2; O2SAT 96
[2023-02-15] MEDS: ceFAZolin SOD 1 GM in D5W MINI-BAG PLUS 50 ML IV SCH (20:58)
[2023-02-15] MEDS: rOPINIRole 1MG TAB PO SCH (22:19)
[2023-02-16] MEDS: LEVOTHYROXINE 50MCG TABLET (0.05MG) PO SCH (05:41)
[2023-02-16] MEDS: ceFAZolin SOD 1 GM in D5W MINI-BAG PLUS 50 ML IV SCH ×3 (05:42→20:49)
[2023-02-16 06:29] VITALS: BP 111/59; TEMP 97.5; O2SAT 96
[2023-02-16] MEDS ORDERED: LOPERAMIDE 2 MG CAPLET PO PRN (07:20)
[2023-02-16 07:41] LABS: BASO % 0.8 % (0.0-1.0); EOS # 0.1 10^3/uL (0.0-0.5); EOS % 2.3 % (0.0-3.0); HEMATOCRIT 31.5 % (36.0-47.0); HEMOGLOBIN 9.8 g/dl (12.0-15.5); LYMPH # 1.1 10^3/uL (1.5-5.0); LYMPH % 28.3 % (24.0-44.0); MEAN CORPUSCULAR HEMOGLOBIN 26.3 pg (27.0-33.0); MEAN CORPUSCULAR HGB CONC 31.1 g/dl (32.0-36.5); MEAN CORPUSCULAR VOLUME 84.5 fl (80.0-96.0); MONO # 0.4 10^3/uL (0.0-0.8); MONO % 9.8 % (2.0-8.0); NEUTROPHILS # 2.3 10^3/uL (1.5-8.5); NEUTROPHILS % 56.8 % (36.0-66.0); PLATELET COUNT, AUTOMATED 184 10^3/uL (150-450); RED BLOOD COUNT 3.73 10^6/uL (4.00-5.40)
[2023-02-16 08:04] LABS: BLOOD UREA NITROGEN 24 MG/DL (9-23); CALCIUM LEVEL 8.6 MG/DL (8.3-10.6); CARBON DIOXIDE LEVEL 31 MMOL/L (20-31); CHLORIDE LEVEL 103 MMOL/L (98-107); CREATININE FOR GFR 0.93 MG/DL (0.55-1.30); GLOMERULAR FILTRATION RATE > 60.0 (>39); GLUCOSE, FASTING 93 MG/DL (74-106); POTASSIUM SERUM 4.4 MMOL/L (3.5-5.1); SODIUM LEVEL 140 MMOL/L (136-145)
[2023-02-16 08:15] LABS: PROCALCITONIN <0.04 ng/ml
[2023-02-16 08:17] LABS: ERYTHROCYTE SEDIMENTATION RATE 29 mm/hr (0-30)
[2023-02-16 08:27] LABS: INR 2.53; PROTHROMBIN TIME 26.7 SECONDS (12.5-14.5)
[2023-02-16] MEDS: OMEPRAZOLE 20MG CAP PO SCH (09:47)
[2023-02-16] MEDS: POTASSIUM CHLORIDE 10MEQ SR TABLET PO SCH (09:47)
[2023-02-16] MEDS: SPIRONOLACTONE 50 MG TAB PO SCH ×2 (09:47→16:34)
[2023-02-16] MEDS: MULTIVITAMINS/MINERALS THERAP 1 TAB PO SCH (09:48)
[2023-02-16] MEDS: rOPINIRole 1MG TAB PO SCH ×2 (09:48→20:49)
[2023-02-16] MEDS: VITAMIN D 1,000 INTERNATIONAL UNITS TABLET PO SCH (09:48)
[2023-02-16] MEDS: ACYCLOVIR 200 MG CAPSULE PO SCH ×2 (09:48→20:49)
[2023-02-16] MEDS: THIAMINE 100 MG TAB PO SCH (09:48)
[2023-02-16 14:10] VITALS: BP 108/62; TEMP 97.7; O2SAT 96
[2023-02-16] MEDS: ATOVAQUONE SUSP 750MG/5ML 210 ML BTL PO SCH (16:34)
[2023-02-16] MEDS: WARFARIN SOD 3MG TAB PO SCH (16:34)
[2023-02-16] MEDS: TORSEMIDE (DEMADEX) 50 MG PER 1/2 TAB PO SCH (16:35)
[2023-02-16 21:20] VITALS: BP 130/58; TEMP 97.7; O2SAT 96
[2023-02-17 05:35] VITALS: BP 131/60; TEMP 97.9; O2SAT 99
[2023-02-17] MEDS: ceFAZolin SOD 1 GM in D5W MINI-BAG PLUS 50 ML IV SCH ×2 (05:37→09:12)
[2023-02-17] MEDS: LEVOTHYROXINE 50MCG TABLET (0.05MG) PO SCH (05:37)
[2023-02-17 07:02] LABS: BASO % 0.4 % (0.0-1.0); EOS # 0.1 10^3/uL (0.0-0.5); EOS % 2.4 % (0.0-3.0); HEMATOCRIT 33.6 % (36.0-47.0); HEMOGLOBIN 10.3 g/dl (12.0-15.5); LYMPH # 1.2 10^3/uL (1.5-5.0); LYMPH % 25.5 % (24.0-44.0); MEAN CORPUSCULAR HEMOGLOBIN 25.9 pg (27.0-33.0); MEAN CORPUSCULAR HGB CONC 30.7 g/dl (32.0-36.5); MEAN CORPUSCULAR VOLUME 84.6 fl (80.0-96.0); MONO # 0.5 10^3/uL (0.0-0.8); MONO % 9.7 % (2.0-8.0); NEUTROPHILS # 2.8 10^3/uL (1.5-8.5); NEUTROPHILS % 60.1 % (36.0-66.0); PLATELET COUNT, AUTOMATED 196 10^3/uL (150-450); RED BLOOD COUNT 3.97 10^6/uL (4.00-5.40); WHITE BLOOD COUNT 4.6 10^3/uL (4.0-10.0)
[2023-02-17 07:10] LABS: INR 2.22
[2023-02-17 07:20] LABS: BLOOD UREA NITROGEN 21 MG/DL (9-23); CALCIUM LEVEL 8.3 MG/DL (8.3-10.6); CARBON DIOXIDE LEVEL 30 MMOL/L (20-31); CHLORIDE LEVEL 105 MMOL/L (98-107); CREATININE FOR GFR 0.99 MG/DL (0.55-1.30); GLOMERULAR FILTRATION RATE 58.2 (>39); GLUCOSE, FASTING 116 MG/DL (74-106); POTASSIUM SERUM 4.2 MMOL/L (3.5-5.1); SODIUM LEVEL 142 MMOL/L (136-145)
[2023-02-17] MEDS ORDERED: BACI1CAP PO (07:23)
[2023-02-17] MEDS ORDERED: CEPH500C PO (07:23)
[2023-02-17 08:00] LABS: PROCALCITONIN <0.04 ng/ml
[2023-02-17 08:02] LABS: ERYTHROCYTE SEDIMENTATION RATE 33 mm/hr (0-30)
[2023-02-17] MEDS ORDERED: BACTRIM 160MG/800MG DS TAB PO SCH (09:00)
[2023-02-17] MEDS: SPIRONOLACTONE 50 MG TAB PO SCH (09:00)
[2023-02-17] MEDS: TORSEMIDE (DEMADEX) 50 MG PER 1/2 TAB PO SCH (09:01)
[2023-02-17] MEDS: POTASSIUM CHLORIDE 10MEQ SR TABLET PO SCH (09:01)
[2023-02-17] MEDS: ATOVAQUONE SUSP 750MG/5ML 210 ML BTL PO SCH (09:01)
[2023-02-17] MEDS: THIAMINE 100 MG TAB PO SCH (09:02)
[2023-02-17] MEDS: ACYCLOVIR 200 MG CAPSULE PO SCH (09:02)
[2023-02-17] MEDS: rOPINIRole 1MG TAB PO SCH (09:02)
[2023-02-17] MEDS: VITAMIN D 1,000 INTERNATIONAL UNITS TABLET PO SCH (09:02)
[2023-02-17] MEDS: MULTIVITAMINS/MINERALS THERAP 1 TAB PO SCH (09:02)
[2023-02-17] MEDS: OMEPRAZOLE 20MG CAP PO SCH (09:02)
== END 2023-02-17 10:50 | DRG 300 ==
LOC: M ED 11:33 → M ED INP 13:50 → M MS5PR 16:20
PROVIDERS: ADMIT General Practice; ATTEND General Practice
DX: I82.511 Chronic embolism and thrombosis of right femoral vein (principal); C90.00 Multiple myeloma not having achieved remission; I50.42 Chronic combined systolic (congestive) and diastolic (congestive) heart failure; L03.115 Cellulitis of right lower limb; I13.0 Hypertensive heart and chronic kidney disease with heart failure and stage 1 through stage 4 chronic kidney disease, or unspecified chronic kidney disease; N18.30 Chronic kidney disease, stage 3 unspecified; I25.10 Atherosclerotic heart disease of native coronary artery without angina pectoris; J44.9 Chronic obstructive pulmonary disease, unspecified; K21.9 Gastro-esophageal reflux disease without esophagitis; R91.8 Other nonspecific abnormal finding of lung field; E03.9 Hypothyroidism, unspecified; B34.8 Other viral infections of unspecified site; E55.9 Vitamin D deficiency, unspecified; G62.0 Drug-induced polyneuropathy; K31.84 Gastroparesis; Z90.79 Acquired absence of other genital organ(s); Z90.49 Acquired absence of other specified parts of digestive tract; Z98.41 Cataract extraction status, right eye; Z98.42 Cataract extraction status, left eye; Z79.01 Long term (current) use of anticoagulants; Z79.890 Hormone replacement therapy; Z79.899 Other long term (current) drug therapy; Z88.8 Allergy status to other drugs, medicaments and biological substances; Z20.822 Contact with and (suspected) exposure to COVID-19; Z86.711 Personal history of pulmonary embolism

== ENCOUNTER → 2023-03-22 | Outpatient (REF) | payer MEDICARE, MEDICAID ==
[~2023-03-22] MED LIST changes: +ATOV750S PO; +BACI1CAP PO; +LEVO50CA PO; +NITR-67 PO; +POTA1TAB24 PO; +ROPI1TAB73 PO; +VITA-168 PO; +VITATAB73 PO
== END ==
PROVIDERS: ATTEND Family Medicine
DX: I10 Essential (primary) hypertension (principal); Z53.8 Procedure and treatment not carried out for other reasons

== ENCOUNTER 2023-04-05 14:10 | Inpatient (IN) | payer MEDICARE, MEDICAID ==
[~2023-04-05] VITALS: Ht 147.3 cm; Wt 66.9 kg
[2023-04-05] MEDS ORDERED: MED REC IN PROGRESS XX SCH (15:05)
[2023-04-05] MEDS ORDERED: LEVO50TA5 PO (15:30)
[2023-04-05] MEDS ORDERED: ATOV750S PO (15:30)
[2023-04-05] MEDS ORDERED: DESI13CR2 TOP (15:30)
[2023-04-05] MEDS ORDERED: CEFEPIME HCL 2 GM in D5W MINI-BAG PLUS 50 ML IV ONE (15:50)
[2023-04-05] MEDS ORDERED: BACTDSTA PO (15:57)
[2023-04-05 16:14] LABS: BASO % 0.1 % (0.0-1.0); HEMATOCRIT 36.5 % (36.0-47.0); HEMOGLOBIN 11.3 g/dl (12.0-15.5); LYMPH # 1.8 10^3/uL (1.5-5.0); LYMPH % 10.4 % (24.0-44.0); MEAN CORPUSCULAR HEMOGLOBIN 25.5 pg (27.0-33.0); MEAN CORPUSCULAR VOLUME 82.4 fl (80.0-96.0); MONO # 1.2 10^3/uL (0.0-0.8); MONO % 6.9 % (2.0-8.0); NEUTROPHILS # 14.2 10^3/uL (1.5-8.5); NEUTROPHILS % 81.7 % (36.0-66.0); PLATELET COUNT, AUTOMATED 172 10^3/uL (150-450); RED BLOOD COUNT 4.43 10^6/uL (4.00-5.40); WHITE BLOOD COUNT 17.3 10^3/uL (4.0-10.0)
[2023-04-05 16:37] LABS: INR 2.63; PARTIAL THROMBOPLASTIN TIME 35.5 SECONDS (24.8-34.2); PROTHROMBIN TIME 27.2 SECONDS (12.5-14.5)
[2023-04-05 16:40] LABS: ALBUMIN 3.5 G/DL (3.2-5.2); ALKALINE PHOSPHATASE 78 U/L (46-116); ALT/SGPT 25 U/L (7.0-40); AST/SGOT 42 U/L (<34); BILIRUBIN,DIRECT 0.4 MG/DL (<0.4); BILIRUBIN,TOTAL 1.3 MG/DL (0.3-1.2); BLOOD UREA NITROGEN 25 MG/DL (9-23); CALCIUM LEVEL 8.4 MG/DL (8.3-10.6); CARBON DIOXIDE LEVEL 27 MMOL/L (20-31); CHLORIDE LEVEL 100 MMOL/L (98-107); CREATININE FOR GFR 1.04 MG/DL (0.55-1.30); GLUCOSE, FASTING 103 MG/DL (74-106); POTASSIUM SERUM 4.6 MMOL/L (3.5-5.1); SODIUM LEVEL 137 MMOL/L (136-145); TOTAL PROTEIN 5.9 G/DL (5.7-8.2)
[2023-04-05] MEDS ORDERED: HOME MED LIST COMPLETE! XX SCH (16:45)
[2023-04-05 17:01] LABS: APPEARANCE, URINE CLEAR (CLEAR); BACTERIA, URINE AUTO 1+ (NEGATIVE); BILIRUBIN, URINE AUTO NEGATIVE (NEGATIVE); BLOOD, URINE BLOOD 1+ (NEGATIVE); COLOR, URINE YELLOW (YELLOW); GLUCOSE, URINE (UA) AUTO NEGATIVE (NEGATIVE); KETONE, URINE AUTO NEGATIVE (NEGATIVE); LEUKOCYTE ESTERASE, URINE AUTO TRACE (NEGATIVE); NITRITE, URINE AUTO NEGATIVE (NEGATIVE); PROTEIN, URINE AUTO NEGATIVE (NEGATIVE); RBC, URINE AUTO 1 /HPF (0-3); SPECIFIC GRAVITY URINE AUTO 1.006 (1.002-1.035); SQUAMOUS EPITHELIAL CELL UR AU 0 /HPF (0-6); UROBILINOGEN, URINE AUTO 0.2 mg/dL (0.0-2.0); WBC, URINE AUTO 17 /HPF (0-3)
[2023-04-05 17:36] LABS: RSV AMPLIFICATION NEGATIVE (NEGATIVE)
[2023-04-05] MEDS ORDERED: ACETAMINOPHEN TAB 650MG DOSE (2X325MG) PO PRN (17:50)
[2023-04-05] MEDS ORDERED: HEPARIN SOD (PORCINE) 5000UNITS/ML 1ML VIAL/SYRINGE SC SCH (17:50)
[2023-04-05] MEDS ORDERED: LOPERAMIDE 2 MG CAPLET PO PRN (18:15)
[2023-04-05] MEDS ORDERED: ONDANSETRON 4MG TAB PO PRN (18:15)
[2023-04-05] MEDS ORDERED: VANCOMYCIN HCL 750 MG, VIAL MATE ADAPTER 1 EACH in D5W 250 ML IV SCH (18:20)
[2023-04-05 18:47] LABS: ANTI-STREPTOLYSIN O QUANT < 25.0 IU/ML (<195)
[2023-04-05 18:59] LABS: PROCALCITONIN 0.08 ng/ml
[2023-04-05] MEDS: WARFARIN SOD 3MG TAB PO SCH (19:09)
[2023-04-05 19:56] VITALS: BP 104/58; TEMP 98.9; O2SAT 99
[2023-04-05] MEDS ORDERED: VANCOMYCIN HCL 750 MG, VIAL MATE ADAPTER 1 EACH in D5W 250 ML IV ONE (21:00)
[2023-04-05] MEDS ORDERED: VANCOMYCIN HCL 500 MG in D5W MINI-BAG PLUS 100 ML IV ONE (22:00)
[2023-04-05] MEDS: rOPINIRole 1MG TAB PO SCH (22:20)
[2023-04-05] MEDS: ACYCLOVIR 200 MG CAPSULE PO SCH (22:51)
[2023-04-05 23:30] VITALS: BP 92/51; TEMP 99.6; O2SAT 96
[2023-04-06] VITALS (7 sets, daily range): BP systolic 106–114; BP diastolic 48–67; TEMP 97.7–100.9; O2SAT 94–100
[2023-04-06] MEDS: CEFEPIME HCL 1 GM in D5W MINI-BAG PLUS 50 ML IV SCH ×2 (04:33→16:04)
[2023-04-06] MEDS: LEVOTHYROXINE 50MCG TABLET (0.05MG) PO SCH (06:21)
[2023-04-06 06:42] LABS: BASO % 0.3 % (0.0-1.0); EOS % 0.4 % (0.0-3.0); HEMATOCRIT 34.7 % (36.0-47.0); HEMOGLOBIN 10.8 g/dl (12.0-15.5); LYMPH # 0.9 10^3/uL (1.5-5.0); LYMPH % 9.1 % (24.0-44.0); MEAN CORPUSCULAR HEMOGLOBIN 25.9 pg (27.0-33.0); MEAN CORPUSCULAR HGB CONC 31.1 g/dl (32.0-36.5); MEAN CORPUSCULAR VOLUME 83.2 fl (80.0-96.0); MONO # 0.5 10^3/uL (0.0-0.8); MONO % 5.1 % (2.0-8.0); NEUTROPHILS # 8.3 10^3/uL (1.5-8.5); NEUTROPHILS % 83.5 % (36.0-66.0); PLATELET COUNT, AUTOMATED 128 10^3/uL (150-450); RED BLOOD COUNT 4.17 10^6/uL (4.00-5.40); WHITE BLOOD COUNT 9.9 10^3/uL (4.0-10.0)
[2023-04-06 07:08] LABS: CALCIUM LEVEL 8.4 MG/DL (8.3-10.6); CREATININE FOR GFR 1.06 MG/DL (0.55-1.30); GLOMERULAR FILTRATION RATE 53.8 (>39); MAGNESIUM LEVEL 1.2 MG/DL (1.8-2.4)
[2023-04-06 07:32] LABS: INR 3.03; PROTHROMBIN TIME 30.3 SECONDS (12.5-14.5)
[2023-04-06] MEDS: OMEPRAZOLE 20MG CAP PO SCH (07:55)
[2023-04-06] MEDS: ACYCLOVIR 200 MG CAPSULE PO SCH ×2 (07:56→20:50)
[2023-04-06] MEDS: rOPINIRole 1MG TAB PO SCH ×2 (07:56→20:50)
[2023-04-06 07:58] LABS: VANCOMYCIN RANDOM 13.6 UG/ML
[2023-04-06] MEDS ORDERED: VANCOMYCIN HCL 1,000 MG, VIAL MATE ADAPTER 1 EACH in D5W 250 ML IV SCH ×2 (08:00→09:00)
[2023-04-06] MEDS: MAG SULF 1GM/100ML (MAG RUN) 1 GM in IV 1 EA IV SCH ×4 (08:32→12:16)
[2023-04-06] MEDS: ATOVAQUONE SUSP 750MG/5ML 210 ML BTL PO SCH (10:07)
[2023-04-06] MEDS ORDERED: CEFEPIME HCL 1 GM in D5W MINI-BAG PLUS 50 ML IV ONE (17:00)
[2023-04-07] MEDS ORDERED: CEFEPIME HCL 2 GM in D5W MINI-BAG PLUS 50 ML IV SCH (04:00)
[2023-04-07 04:13] VITALS: BP 105/54; TEMP 98.8; O2SAT 97
[2023-04-07] MEDS: CEFEPIME HCL 2 GM in D5W MINI-BAG PLUS 50 ML IV SCH ×2 (04:22→15:27)
[2023-04-07] MEDS: LEVOTHYROXINE 50MCG TABLET (0.05MG) PO SCH (05:29)
[2023-04-07 05:45] LABS: BASO % 0.5 % (0.0-1.0); EOS % 0.7 % (0.0-3.0); HEMATOCRIT 28.9 % (36.0-47.0); HEMOGLOBIN 9.2 g/dl (12.0-15.5); LYMPH # 0.9 10^3/uL (1.5-5.0); LYMPH % 19.5 % (24.0-44.0); MEAN CORPUSCULAR HGB CONC 31.8 g/dl (32.0-36.5); MEAN CORPUSCULAR VOLUME 81.6 fl (80.0-96.0); MONO # 0.3 10^3/uL (0.0-0.8); MONO % 7.7 % (2.0-8.0); NEUTROPHILS # 3.1 10^3/uL (1.5-8.5); NEUTROPHILS % 70.7 % (36.0-66.0); PLATELET COUNT, AUTOMATED 134 10^3/uL (150-450); RED BLOOD COUNT 3.54 10^6/uL (4.00-5.40); WHITE BLOOD COUNT 4.4 10^3/uL (4.0-10.0)
[2023-04-07 05:52] LABS: INR 2.47; PROTHROMBIN TIME 25.9 SECONDS (12.5-14.5)
[2023-04-07 06:03] LABS: BLOOD UREA NITROGEN 18 MG/DL (9-23); CALCIUM LEVEL 7.6 MG/DL (8.3-10.6); CARBON DIOXIDE LEVEL 24 MMOL/L (20-31); CHLORIDE LEVEL 105 MMOL/L (98-107); CREATININE FOR GFR 0.87 MG/DL (0.55-1.30); GLOMERULAR FILTRATION RATE > 60.0 (>39); GLUCOSE, FASTING 110 MG/DL (74-106); MAGNESIUM LEVEL 2.6 MG/DL (1.8-2.4); POTASSIUM SERUM 3.8 MMOL/L (3.5-5.1); SODIUM LEVEL 138 MMOL/L (136-145)
[2023-04-07 07:41] VITALS: BP 141/66; TEMP 97.9; O2SAT 97
[2023-04-07] MEDS: rOPINIRole 1MG TAB PO SCH ×2 (08:45→20:24)
[2023-04-07] MEDS: BACTRIM 160MG/800MG DS TAB PO SCH (08:45)
[2023-04-07] MEDS: ACYCLOVIR 200 MG CAPSULE PO SCH ×2 (08:45→20:24)
[2023-04-07] MEDS: OMEPRAZOLE 20MG CAP PO SCH (08:46)
[2023-04-07] MEDS: ATOVAQUONE SUSP 750MG/5ML 210 ML BTL PO SCH (08:46)
[2023-04-07 11:21] VITALS: BP 112/56; TEMP 97.6; O2SAT 98
[2023-04-07] MEDS: PHENAZOPYRIDINE 100 MG TAB PO SCH ×2 (13:51→20:24)
[2023-04-07] MEDS: WARFARIN SOD 3MG TAB PO SCH (17:22)
[2023-04-07 19:00] VITALS: BP 138/65; TEMP 97.4; O2SAT 96
[2023-04-08 03:32] VITALS: BP 110/56; TEMP 97.8; O2SAT 96
[2023-04-08] MEDS: CEFEPIME HCL 2 GM in D5W MINI-BAG PLUS 50 ML IV SCH ×2 (03:59→16:05)
[2023-04-08 05:41] LABS: BASO % 1.1 % (0.0-1.0); EOS # 0.1 10^3/uL (0.0-0.5); EOS % 2.5 % (0.0-3.0); HEMATOCRIT 29.6 % (36.0-47.0); HEMOGLOBIN 9.1 g/dl (12.0-15.5); LYMPH % 33.6 % (24.0-44.0); MEAN CORPUSCULAR HEMOGLOBIN 25.4 pg (27.0-33.0); MEAN CORPUSCULAR HGB CONC 30.7 g/dl (32.0-36.5); MEAN CORPUSCULAR VOLUME 82.7 fl (80.0-96.0); MONO # 0.3 10^3/uL (0.0-0.8); MONO % 11.3 % (2.0-8.0); NEUTROPHILS # 1.4 10^3/uL (1.5-8.5); NEUTROPHILS % 50.8 % (36.0-66.0); PLATELET COUNT, AUTOMATED 132 10^3/uL (150-450); RED BLOOD COUNT 3.58 10^6/uL (4.00-5.40); WHITE BLOOD COUNT 2.8 10^3/uL (4.0-10.0)
[2023-04-08 05:51] LABS: BLOOD UREA NITROGEN 17 MG/DL (9-23); CALCIUM LEVEL 7.7 MG/DL (8.3-10.6); CARBON DIOXIDE LEVEL 21 MMOL/L (20-31); CHLORIDE LEVEL 106 MMOL/L (98-107); CREATININE FOR GFR 0.78 MG/DL (0.55-1.30); GLOMERULAR FILTRATION RATE > 60.0 (>39); GLUCOSE, FASTING 99 MG/DL (74-106); INR 1.81; MAGNESIUM LEVEL 2.3 MG/DL (1.8-2.4); POTASSIUM SERUM 3.9 MMOL/L (3.5-5.1); PROTHROMBIN TIME 20.4 SECONDS (12.5-14.5); SODIUM LEVEL 135 MMOL/L (136-145)
[2023-04-08] MEDS: LEVOTHYROXINE 50MCG TABLET (0.05MG) PO SCH (06:25)
[2023-04-08 07:48] VITALS: BP 123/59; TEMP 97.8; O2SAT 97
[2023-04-08] MEDS: PHENAZOPYRIDINE 100 MG TAB PO SCH ×2 (08:07→20:16)
[2023-04-08] MEDS: ATOVAQUONE SUSP 750MG/5ML 210 ML BTL PO SCH (08:07)
[2023-04-08] MEDS: rOPINIRole 1MG TAB PO SCH ×2 (08:07→20:15)
[2023-04-08] MEDS: OMEPRAZOLE 20MG CAP PO SCH (08:07)
[2023-04-08] MEDS: ACYCLOVIR 200 MG CAPSULE PO SCH ×2 (08:07→20:16)
[2023-04-08] MEDS ORDERED: ACETAMINOPH W/CODEINE #3 TAB UD PO PRN (08:20)
[2023-04-08] MEDS ORDERED: TORS100T PO ×2 (10:04→10:58)
[2023-04-08] MEDS ORDERED: LEVO1TAB40 PO (10:06)
[2023-04-08 15:59] VITALS: BP 109/55; TEMP 96.8; O2SAT 99
[2023-04-08] MEDS ORDERED: WARFARIN SOD 4MG TAB PO SCH (17:00)
[2023-04-08 20:00] VITALS: BP 127/60; TEMP 97.7; O2SAT 98
[2023-04-09] MEDS: CEFEPIME HCL 2 GM in D5W MINI-BAG PLUS 50 ML IV SCH (03:34)
[2023-04-09 04:00] VITALS: BP 116/58; TEMP 97.3; O2SAT 98
[2023-04-09] MEDS: LEVOTHYROXINE 50MCG TABLET (0.05MG) PO SCH (05:00)
[2023-04-09 06:13] LABS: INR 2.06; PROTHROMBIN TIME 22.5 SECONDS (12.5-14.5)
[2023-04-09] MEDS: ATOVAQUONE SUSP 750MG/5ML 210 ML BTL PO SCH (09:17)
[2023-04-09] MEDS: ACYCLOVIR 200 MG CAPSULE PO SCH (09:18)
[2023-04-09] MEDS: rOPINIRole 1MG TAB PO SCH (09:18)
[2023-04-09] MEDS: BACTRIM 160MG/800MG DS TAB PO SCH (09:18)
[2023-04-09] MEDS: OMEPRAZOLE 20MG CAP PO SCH (09:19)
== END 2023-04-09 13:05 | DRG 602 ==
LOC: M ED 14:10 → M ED INP 17:34 → M PCU 19:48
PROVIDERS: ADMIT Internal Medicine; ATTEND Internal Medicine
DX: L03.114 Cellulitis of left upper limb (principal); D61.810 Antineoplastic chemotherapy induced pancytopenia; C90.02 Multiple myeloma in relapse; I50.32 Chronic diastolic (congestive) heart failure; I13.0 Hypertensive heart and chronic kidney disease with heart failure and stage 1 through stage 4 chronic kidney disease, or unspecified chronic kidney disease; N39.0 Urinary tract infection, site not specified; N18.30 Chronic kidney disease, stage 3 unspecified; E03.9 Hypothyroidism, unspecified; J43.9 Emphysema, unspecified; K21.9 Gastro-esophageal reflux disease without esophagitis; I50.810 Right heart failure, unspecified; G25.81 Restless legs syndrome; I27.81 Cor pulmonale (chronic); G62.9 Polyneuropathy, unspecified; K31.84 Gastroparesis; Z90.49 Acquired absence of other specified parts of digestive tract; Z90.79 Acquired absence of other genital organ(s); Z98.41 Cataract extraction status, right eye; Z98.42 Cataract extraction status, left eye; Z83.3 Family history of diabetes mellitus; Z86.711 Personal history of pulmonary embolism; Z86.718 Personal history of other venous thrombosis and embolism; Z79.890 Hormone replacement therapy; Z79.01 Long term (current) use of anticoagulants; Z79.899 Other long term (current) drug therapy; Z88.8 Allergy status to other drugs, medicaments and biological substances; Z20.822 Contact with and (suspected) exposure to COVID-19

== ENCOUNTER → 2023-04-19 | Outpatient (REF) | payer MEDICARE, MEDICAID, BC ==
[~2023-04-19] MED LIST changes: +DESI13CR2 TOP; +LEVO1TAB40 PO; +LEVO50TA5 PO
[2023-04-19 11:33] LABS: INR 2.28; PROTHROMBIN TIME 24.3 SECONDS (12.5-14.5)
[2023-04-19 16:01] LABS: APPEARANCE, URINE HAZY (CLEAR); BACTERIA, URINE AUTO 1+ (NEGATIVE); BILIRUBIN, URINE AUTO NEGATIVE (NEGATIVE); BLOOD, URINE BLOOD NEGATIVE (NEGATIVE); COLOR, URINE YELLOW (YELLOW); GLUCOSE, URINE (UA) AUTO NEGATIVE (NEGATIVE); KETONE, URINE AUTO NEGATIVE (NEGATIVE); LEUKOCYTE ESTERASE, URINE AUTO NEGATIVE (NEGATIVE); MUCUS, URINE SMALL (NEGATIVE); NITRITE, URINE AUTO NEGATIVE (NEGATIVE); PROTEIN, URINE AUTO NEGATIVE (NEGATIVE); RBC, URINE AUTO 3 /HPF (0-3); SPECIFIC GRAVITY URINE AUTO 1.006 (1.002-1.035); SQUAMOUS EPITHELIAL CELL UR AU 0 /HPF (0-6); UROBILINOGEN, URINE AUTO 0.2 mg/dL (0.0-2.0); WBC, URINE AUTO 1 /HPF (0-3)
== END ==
PROVIDERS: ATTEND Family Medicine
DX: I48.91 Unspecified atrial fibrillation (principal); N39.0 Urinary tract infection, site not specified

== ENCOUNTER 2023-04-20 18:19 | Emergency (ER) | payer MEDICARE, MEDICAID ==
[~2023-04-20] VITALS: Ht 149.9 cm; Wt 73.3 kg
[2023-04-20 18:32] VITALS: TEMP 98.7
[2023-04-20 19:07] LABS: HEMATOCRIT 21.9 % (36.0-47.0); MEAN CORPUSCULAR HEMOGLOBIN 25.8 pg (27.0-33.0); MEAN CORPUSCULAR HGB CONC 31.1 g/dl (32.0-36.5); PLATELET COUNT, AUTOMATED 104 10^3/uL (150-450); RED BLOOD COUNT 2.64 10^6/uL (4.00-5.40); WHITE BLOOD COUNT 5.5 10^3/uL (4.0-10.0)
[2023-04-20 19:12] LABS: HEMOGLOBIN 6.8 g/dl (12.0-15.5)
[2023-04-20 19:14] LABS: INR 2.52; PROTHROMBIN TIME 26.3 SECONDS (12.5-14.5)
[2023-04-20 19:27] LABS: CPK CREATINE PHOSPHOKINASE 25 U/L (34-145)
[2023-04-20 19:28] LABS: BLOOD UREA NITROGEN 14 MG/DL (9-23); CALCIUM LEVEL 8.3 MG/DL (8.3-10.6); CARBON DIOXIDE LEVEL 25 MMOL/L (20-31); CHLORIDE LEVEL 108 MMOL/L (98-107); CK-MB VALUE MASS < 1.0 NG/ML (<3.6); CREATININE FOR GFR 0.92 MG/DL (0.55-1.30); GLOMERULAR FILTRATION RATE > 60.0 (>39); GLUCOSE, FASTING 104 MG/DL (74-106); SODIUM LEVEL 144 MMOL/L (136-145)
[2023-04-20 19:35] LABS: BASOPHILS 3 % (0-1); EOSINOPHILS 4 % (0-3); LYMPHOCYTES 26 % (16-44); METAMYELOCYTES 4 % (0-0)
[2023-04-20 19:36] LABS: MONOCYTES 11 % (0-5); NEUTROPHILS 39 % (28-66); POLYCHROMASIA 1+
[2023-04-20 19:37] LABS: DOHLE BODIES 2+; PLATELET ESTIMATE NORMAL (NORMAL)
[2023-04-20 19:56] LABS: RSV AMPLIFICATION NEGATIVE (NEGATIVE)
[2023-04-20] MEDS ORDERED: ISOVUE-370 76% 100ML VIAL As Ordered ONE (20:24)
[2023-04-20] MEDS ORDERED: rOPINIRole 1MG TAB PO ONE (20:25)
[2023-04-20 21:15] LABS: CK-MB VALUE MASS < 1.0 NG/ML (<3.6)
[2023-04-20] MEDS ORDERED: IPRATROPIUM 0.5MG/ALBUTEROL 2.5MG INH SOL UD 3ML (DUONEB) NEB ONE (21:15)
[2023-04-20] MEDS ORDERED: methylPREDNISolone 125MG 2ML VIAL IV ONE (21:15)
[2023-04-20 21:19] LABS: FREE T4 1.01 NG/DL (0.89-1.76)
[2023-04-20 21:20] LABS: THYROID STIMULATING HORMONE 4.267 uIU/ML (0.55-4.78)
[2023-04-20 21:21] LABS: MAGNESIUM LEVEL 1.1 MG/DL (1.8-2.4)
[2023-04-20 21:27] LABS: CPK CREATINE PHOSPHOKINASE 23 U/L (34-145); MB/CK RELATIVE INDEX 4.34 (< OR =4)
[2023-04-20 21:40] LABS: HEMATOCRIT 28.8 % (36.0-47.0); MEAN CORPUSCULAR HEMOGLOBIN 25.4 pg (27.0-33.0); MEAN CORPUSCULAR HGB CONC 31.3 g/dl (32.0-36.5); MEAN CORPUSCULAR VOLUME 81.1 fl (80.0-96.0); PLATELET COUNT, AUTOMATED 152 10^3/uL (150-450); RED BLOOD COUNT 3.55 10^6/uL (4.00-5.40); WHITE BLOOD COUNT 8.1 10^3/uL (4.0-10.0)
[2023-04-20] MEDS ORDERED: POTASSIUM CHLORIDE 10MEQ SR TABLET PO ONE (23:05)
[2023-04-20] MEDS ORDERED: MAGNESIUM OXIDE 400MG TAB (MAG-OX) PO ONE (23:05)
[2023-04-20] MEDS ORDERED: MAG SULF 1GM/100ML (MAG RUN) 1 GM in IV 1 EA IV ONE (23:05)
[2023-04-20] MEDS ORDERED: FUROSEMIDE 40MG/4ML VIAL IV ONE (23:40)
[2023-04-21] MEDS ORDERED: KCL 20MEQ IN 100ML SWI (KRUN) 20 MEQ in IV 1 EA IV ONE ×2
[2023-04-21 03:02] VITALS: O2SAT 95
[2023-04-21 03:03] VITALS: BP 112/56
== END 2023-04-21 03:05 | disposition home or self-care (01) ==
LOC: EDBD 18:19 → M ED 18:19
DX: R00.2 Palpitations (principal); E87.6 Hypokalemia; E83.42 Hypomagnesemia; I44.4 Left anterior fascicular block; I45.10 Unspecified right bundle-branch block; I45.81 Long QT syndrome; N18.30 Chronic kidney disease, stage 3 unspecified; I10 Essential (primary) hypertension; K21.9 Gastro-esophageal reflux disease without esophagitis; Z86.718 Personal history of other venous thrombosis and embolism; Z86.79 Personal history of other diseases of the circulatory system; Z88.8 Allergy status to other drugs, medicaments and biological substances; Z79.810 Long term (current) use of selective estrogen receptor modulators (SERMs); Z79.83 Long term (current) use of bisphosphonates; Z79.899 Other long term (current) drug therapy; Z79.01 Long term (current) use of anticoagulants
CPT/HCPCS: 93005; 96365; 96366; 96375; 99285; J1940

== ENCOUNTER → 2023-04-30 | Outpatient (REF) | payer MEDICARE, MEDICAID ==
[~2023-04-30] MED LIST changes: +MAGN400T2 PO; +POTA-151 PO
== END ==
PROVIDERS: ATTEND Physician Assistant
DX: N30.01 Acute cystitis with hematuria (principal)

== ENCOUNTER → 2023-05-07 | Outpatient (REF) | payer MEDICARE, MEDICAID | PROVIDERS: ATTEND Physician Assistant | DX: I69.820 Aphasia following other cerebrovascular disease (principal); N18.30 Chronic kidney disease, stage 3 unspecified; G90.09 Other idiopathic peripheral autonomic neuropathy; I50.9 Heart failure, unspecified ==

== ENCOUNTER → 2023-05-12 | Outpatient (REF) | payer MEDICARE, MEDICAID ==
[~2023-05-12] MED LIST changes: +ALDA50TA2 PO; +FOSF3PAC2 PO
[2023-05-12 11:52] LABS: BASO # 0.1 10^3/uL (0.0-0.2); BASO % 1.1 % (0.0-1.0); EOS # 0.2 10^3/uL (0.0-0.5); EOS % 4.2 % (0.0-3.0); HEMATOCRIT 30.8 % (36.0-47.0); HEMOGLOBIN 9.4 g/dl (12.0-15.5); LYMPH # 1.6 10^3/uL (1.5-5.0); LYMPH % 32.8 % (24.0-44.0); MEAN CORPUSCULAR HEMOGLOBIN 24.5 pg (27.0-33.0); MEAN CORPUSCULAR HGB CONC 30.5 g/dl (32.0-36.5); MEAN CORPUSCULAR VOLUME 80.4 fl (80.0-96.0); MONO # 0.7 10^3/uL (0.0-0.8); MONO % 14.1 % (2.0-8.0); NEUTROPHILS # 2.3 10^3/uL (1.5-8.5); NEUTROPHILS % 47.6 % (36.0-66.0); PLATELET COUNT, AUTOMATED 222 10^3/uL (150-450); RED BLOOD COUNT 3.83 10^6/uL (4.00-5.40); WHITE BLOOD COUNT 4.8 10^3/uL (4.0-10.0)
[2023-05-12 12:20] LABS: ALBUMIN 2.9 G/DL (3.2-5.2); CALCIUM LEVEL 8.4 MG/DL (8.3-10.6); CREATININE FOR GFR 0.97 MG/DL (0.55-1.30); GLOMERULAR FILTRATION RATE 59.6 (>39); PHOSPHORUS LEVEL 3.2 MG/DL (2.4-5.1); POTASSIUM SERUM 3.6 MMOL/L (3.5-5.1); PTH INTACT 104.2 PG/ML (18.5-88.0)
== END ==
LOC: EEVIPCON
PROVIDERS: ATTEND Internal Medicine Nephrology
DX: N18.32 Chronic kidney disease, stage 3b (principal); Z79.899 Other long term (current) drug therapy

== ENCOUNTER → 2023-05-14 | Outpatient (REF) | payer MEDICARE, MEDICAID ==
[~2023-05-14] MED LIST changes: -ALDA50TA2 PO; -FOSF3PAC2 PO
== END ==
LOC: M SFHCADAM 15:22
PROVIDERS: ATTEND Family Medicine
DX: N39.0 Urinary tract infection, site not specified (principal)

== ENCOUNTER → 2023-05-25 | Outpatient (REF) | payer MEDICARE, MEDICAID | PROVIDERS: ATTEND Physician Assistant | DX: N39.0 Urinary tract infection, site not specified (principal) ==

== ENCOUNTER → 2023-05-26 | Outpatient (REF) | payer MEDICARE, MEDICAID ==
[~2023-05-26] MED LIST changes: +ALDA50TA2 PO; +FOSF3PAC2 PO
[2023-05-26 10:05] LABS: INR 2.68; PROTHROMBIN TIME 27.5 SECONDS (12.5-14.5)
== END ==
PROVIDERS: ATTEND Family Medicine
DX: I40.8 Other acute myocarditis (principal); Z79.01 Long term (current) use of anticoagulants

== ENCOUNTER → 2023-06-07 | Outpatient (REF) | payer MEDICARE, MEDICAID | PROVIDERS: ATTEND Family Medicine | DX: Z79.01 Long term (current) use of anticoagulants (principal); Z79.899 Other long term (current) drug therapy ==

== ENCOUNTER → 2023-06-14 | Outpatient (REF) | payer MEDICARE, MEDICAID ==
[2023-06-14 11:37] LABS: BASO # 0.1 10^3/uL (0.0-0.2); BASO % 1.2 % (0.0-1.0); EOS # 0.2 10^3/uL (0.0-0.5); EOS % 3.9 % (0.0-3.0); HEMATOCRIT 34.6 % (36.0-47.0); HEMOGLOBIN 10.4 g/dl (12.0-15.5); LYMPH # 1.2 10^3/uL (1.5-5.0); MEAN CORPUSCULAR HEMOGLOBIN 23.7 pg (27.0-33.0); MEAN CORPUSCULAR HGB CONC 30.1 g/dl (32.0-36.5); MEAN CORPUSCULAR VOLUME 78.8 fl (80.0-96.0); MONO # 0.5 10^3/uL (0.0-0.8); NEUTROPHILS # 3.7 10^3/uL (1.5-8.5); NEUTROPHILS % 64.7 % (36.0-66.0); PLATELET COUNT, AUTOMATED 197 10^3/uL (150-450); RED BLOOD COUNT 4.39 10^6/uL (4.00-5.40); WHITE BLOOD COUNT 5.7 10^3/uL (4.0-10.0)
[2023-06-14 12:06] LABS: ALBUMIN 3.7 G/DL (3.2-5.2); BLOOD UREA NITROGEN 21 MG/DL (9-23); CALCIUM LEVEL 8.6 MG/DL (8.3-10.6); CARBON DIOXIDE LEVEL 25 MMOL/L (20-31); CHLORIDE LEVEL 105 MMOL/L (98-107); CREATININE FOR GFR 0.95 MG/DL (0.55-1.30); GLOMERULAR FILTRATION RATE > 60.0 (>39); GLUCOSE, FASTING 143 MG/DL (74-106); PHOSPHORUS LEVEL 2.7 MG/DL (2.4-5.1); POTASSIUM SERUM 3.7 MMOL/L (3.5-5.1); PTH INTACT 175.2 PG/ML (18.5-88.0); SODIUM LEVEL 139 MMOL/L (136-145)
== END ==
PROVIDERS: ATTEND Internal Medicine Nephrology
DX: N18.32 Chronic kidney disease, stage 3b (principal); N25.81 Secondary hyperparathyroidism of renal origin; D63.1 Anemia in chronic kidney disease

== ENCOUNTER → 2023-06-30 | Outpatient (REF) | payer MEDICARE, MEDICAID ==
[~2023-06-30] MED LIST changes: +CALC1CAP31 PO; +METH-855 PO; +MIDO2.5T PO; +POTA-150 PO; +ROBILIQ13 PO
[2023-06-30 11:35] LABS: INR 2.96; PROTHROMBIN TIME 29.7 SECONDS (12.5-14.5)
== END ==
PROVIDERS: ATTEND Family Medicine
DX: Z79.01 Long term (current) use of anticoagulants (principal)

== ENCOUNTER → 2023-07-07 | Outpatient (REF) | payer MEDICARE, MEDICAID ==
[~2023-07-07] MED LIST changes: -CALC1CAP31 PO; -METH-855 PO; -MIDO2.5T PO; -POTA-150 PO; -ROBILIQ13 PO
[2023-07-07 15:22] LABS: APPEARANCE, URINE HAZY (CLEAR); BACTERIA, URINE AUTO NEGATIVE (NEGATIVE); BILIRUBIN, URINE AUTO NEGATIVE (NEGATIVE); BLOOD, URINE BLOOD NEGATIVE (NEGATIVE); COLOR, URINE YELLOW (YELLOW); GLUCOSE, URINE (UA) AUTO NEGATIVE (NEGATIVE); KETONE, URINE AUTO NEGATIVE (NEGATIVE); LEUKOCYTE ESTERASE, URINE AUTO 3+ (NEGATIVE); NITRITE, URINE AUTO NEGATIVE (NEGATIVE); PROTEIN, URINE AUTO NEGATIVE (NEGATIVE); RBC, URINE AUTO 1 /HPF (0-3); SPECIFIC GRAVITY URINE AUTO 1.009 (1.002-1.035); SQUAMOUS EPITHELIAL CELL UR AU 0 /HPF (0-6); UROBILINOGEN, URINE AUTO 0.2 mg/dL (0.0-2.0); WBC, URINE AUTO TNTC /HPF (0-3)
== END ==
LOC: M LAB REF 14:37
PROVIDERS: ATTEND Internal Medicine Nephrology
DX: N18.32 Chronic kidney disease, stage 3b (principal); N25.81 Secondary hyperparathyroidism of renal origin; D63.1 Anemia in chronic kidney disease

== ENCOUNTER 2023-07-11 20:17 | Inpatient (IN) | payer MEDICARE, MEDICAID ==
[~2023-07-11] VITALS: Ht 147.3 cm; Wt 59.3 kg
[2023-07-11] MEDS: NS 500 ML IV ONE (21:20)
[2023-07-11 21:47] LABS: HEMATOCRIT 36.2 % (36.0-47.0); HEMOGLOBIN 11.3 g/dl (12.0-15.5); MEAN CORPUSCULAR HEMOGLOBIN 23.4 pg (27.0-33.0); MEAN CORPUSCULAR HGB CONC 31.2 g/dl (32.0-36.5); MEAN CORPUSCULAR VOLUME 74.9 fl (80.0-96.0); PLATELET COUNT, AUTOMATED 193 10^3/uL (150-450); RED BLOOD COUNT 4.83 10^6/uL (4.00-5.40)
[2023-07-11 22:19] LABS: CK-MB VALUE MASS < 1.0 NG/ML (<3.6); LIPASE 53 U/L (12-53)
[2023-07-11 22:20] LABS: CPK CREATINE PHOSPHOKINASE 102 U/L (34-145); MB/CK RELATIVE INDEX 0.98 (< OR =4)
[2023-07-11 22:21] LABS: ALBUMIN 3.3 G/DL (3.2-5.2); ALKALINE PHOSPHATASE 111 U/L (46-116); ALT/SGPT 30 U/L (7.0-40); AST/SGOT 26 U/L (<34); BILIRUBIN,DIRECT 0.3 MG/DL (<0.4); BILIRUBIN,TOTAL 0.7 MG/DL (0.3-1.2); BLOOD UREA NITROGEN 30 MG/DL (9-23); CALCIUM LEVEL 9.4 MG/DL (8.3-10.6); CARBON DIOXIDE LEVEL 29 MMOL/L (20-31); CHLORIDE LEVEL 101 MMOL/L (98-107); CREATININE FOR GFR 1.31 MG/DL (0.55-1.30); GLOMERULAR FILTRATION RATE 42.1 (>39); GLUCOSE, FASTING 109 MG/DL (74-106); MAGNESIUM LEVEL 1.8 MG/DL (1.8-2.4); POTASSIUM SERUM 4.4 MMOL/L (3.5-5.1); SODIUM LEVEL 138 MMOL/L (136-145); TOTAL PROTEIN 6.1 G/DL (5.7-8.2)
[2023-07-11 22:26] LABS: PROCALCITONIN 0.13 ng/ml
[2023-07-11 22:27] LABS: ANISOCYTOSIS 1+; ATYPICAL LYMPH 10 % (0-5); BASOPHILS 1 % (0-1); HYPERSEGMENTED POLYS 2+; LYMPHOCYTES 24 % (16-44); MONOCYTES 11 % (0-5); NEUTROPHILS 53 % (28-66)
[2023-07-11 22:28] LABS: MICROCYTOSIS 2+
[2023-07-11 22:29] LABS: PLATELET ESTIMATE NORMAL (NORMAL); POIKILOCYTOSIS 1+
[2023-07-11 22:31] LABS: RSV AMPLIFICATION NEGATIVE (NEGATIVE)
[2023-07-11] MEDS: cefTRIAXone SOD 1 GM in D5W MINI-BAG PLUS 50 ML IV ONE (22:34)
[2023-07-11 22:40] LABS: PARTIAL THROMBOPLASTIN TIME 57.4 SECONDS (24.8-34.2)
[2023-07-11 22:50] LABS: INR 5.38
[2023-07-11] MEDS ORDERED: POTA-150 PO (23:07)
[2023-07-11] MEDS ORDERED: CALC1CAP31 PO (23:07)
[2023-07-11] MEDS ORDERED: MIDO2.5T PO (23:13)
[2023-07-11] MEDS ORDERED: HOME MED LIST COMPLETE! XX SCH (23:15)
[2023-07-12] MEDS ORDERED: ONDANSETRON 4MG 2ML VIAL IV PRN (01:00)
[2023-07-12 02:23] VITALS: BP 107/45; TEMP 97.7; O2SAT 93
[2023-07-12 06:00] VITALS: BP 106/46; TEMP 98.1; O2SAT 94
[2023-07-12] MEDS: LEVOTHYROXINE 50MCG TABLET (0.05MG) PO SCH (06:19)
[2023-07-12] MEDS: OMEPRAZOLE 20MG CAP PO SCH (08:33)
[2023-07-12] MEDS: CALCITRIOL 0.25 MCG CAP (S0169) PO SCH (08:33)
[2023-07-12] MEDS: ACYCLOVIR 200 MG CAPSULE PO SCH (08:33)
[2023-07-12] MEDS: ATOVAQUONE SUSP 750MG/5ML 210 ML BTL PO SCH (08:34)
[2023-07-12] MEDS: MIDODRINE 2.5 MG TAB PO SCH (08:38)
[2023-07-12] MEDS: LR 500 ML IV ONE (08:39)
[2023-07-12] MEDS: BACTRIM 160MG/800MG DS TAB PO SCH (08:47)
[2023-07-12] MEDS: rOPINIRole 1MG TAB PO SCH (08:47)
[2023-07-12] MEDS: ONDANSETRON 4MG ORAL DISINTEGRATING TAB SL SCH (08:47)
[2023-07-12] MEDS ORDERED: SPIRONOLACTONE 50 MG TAB PO SCH (09:00)
[2023-07-12] MEDS: FOSFOMYCIN TROMETHAMINE 3 GM POWDER PACKET (MONUROL) PO ONE (09:55)
[2023-07-12] MEDS ORDERED: ISOVUE-370 76% 100ML VIAL As Ordered ONE (10:05)
[2023-07-12 10:21] LABS: C REACTIVE PROTEIN QUANTITATIV 12.3 MG/DL (<1.0)
[2023-07-12 10:29] LABS: PROCALCITONIN 0.08 ng/ml
[2023-07-12] MEDS: LR 1,000 ML IV SCH (10:47)
[2023-07-12 14:00] VITALS: BP 109/52; TEMP 97.7; O2SAT 95
[2023-07-12 20:00] VITALS: O2SAT 92; O2SAT 95
[2023-07-13] MEDS: cefTRIAXone SOD 1 GM in D5W MINI-BAG PLUS 50 ML IV SCH (00:42)
[2023-07-13 06:00] VITALS: BP 111/50; TEMP 98.2; O2SAT 92
[2023-07-13 06:19] LABS: HEMATOCRIT 35.6 % (36.0-47.0); HEMOGLOBIN 10.6 g/dl (12.0-15.5); MEAN CORPUSCULAR HGB CONC 29.8 g/dl (32.0-36.5); MEAN CORPUSCULAR VOLUME 77.2 fl (80.0-96.0); PLATELET COUNT, AUTOMATED 187 10^3/uL (150-450); RED BLOOD COUNT 4.61 10^6/uL (4.00-5.40)
[2023-07-13 06:48] LABS: INR 7.2; PROTHROMBIN TIME 58.9 SECONDS (12.5-14.5)
[2023-07-13 06:53] LABS: CREATININE FOR GFR 1.16 MG/DL (0.55-1.30); GLOMERULAR FILTRATION RATE 48.5 (>39); POTASSIUM SERUM 3.6 MMOL/L (3.5-5.1)
[2023-07-13] MEDS: LOPERAMIDE 2 MG CAPLET PO ONE (08:42)
[2023-07-13 14:00] VITALS: BP 125/51; TEMP 98.1; O2SAT 97
[2023-07-13] MEDS: LOPERAMIDE 2 MG CAPLET PO PRN (14:14)
[2023-07-13] MEDS: CEFEPIME HCL 1 GM in D5W MINI-BAG PLUS 50 ML IV SCH (21:14)
[2023-07-13 22:00] VITALS: BP 116/83; TEMP 98.1; O2SAT 91
[2023-07-14 06:00] VITALS: BP 109/42; TEMP 97.9; O2SAT 94
[2023-07-14 06:34] LABS: HEMATOCRIT 29.8 % (36.0-47.0); HEMOGLOBIN 9.1 g/dl (12.0-15.5); MEAN CORPUSCULAR HEMOGLOBIN 23.2 pg (27.0-33.0); MEAN CORPUSCULAR HGB CONC 30.5 g/dl (32.0-36.5); MEAN CORPUSCULAR VOLUME 75.8 fl (80.0-96.0); PLATELET COUNT, AUTOMATED 155 10^3/uL (150-450); RED BLOOD COUNT 3.93 10^6/uL (4.00-5.40); WHITE BLOOD COUNT 1.9 10^3/uL (4.0-10.0)
[2023-07-14 06:51] LABS: INR 3.97; PROTHROMBIN TIME 37.3 SECONDS (12.5-14.5)
[2023-07-14 07:06] LABS: BLOOD UREA NITROGEN 14 MG/DL (9-23); CALCIUM LEVEL 7.5 MG/DL (8.3-10.6); CARBON DIOXIDE LEVEL 25 MMOL/L (20-31); CHLORIDE LEVEL 107 MMOL/L (98-107); CREATININE FOR GFR 0.88 MG/DL (0.55-1.30); GLOMERULAR FILTRATION RATE > 60.0 (>39); GLUCOSE, FASTING 83 MG/DL (74-106); POTASSIUM SERUM 3.3 MMOL/L (3.5-5.1); SODIUM LEVEL 137 MMOL/L (136-145)
[2023-07-14] MEDS: POTASSIUM CHLORIDE 10MEQ SR TABLET PO ONE (08:47)
[2023-07-14] MEDS: KCL 10MEQ/100ML SWI (KRUN) 10 MEQ in IV 1 EA IV SCH (08:48)
[2023-07-14] MEDS: POTASSIUM CHLORIDE 10% LIQ 20MEQ/15ML UDC PO ONE (11:29)
[2023-07-14] MEDS: TORSEMIDE 100 MG TAB PO SCH (11:30)
[2023-07-14 14:07] VITALS: BP 141/65; TEMP 98.1; O2SAT 95
[2023-07-14 22:00] VITALS: BP 105/52; TEMP 98.1; O2SAT 92
[2023-07-15 06:00] VITALS: BP 102/49; TEMP 99.3; O2SAT 90
[2023-07-15 06:35] LABS: BASO % 1.1 % (0.0-1.0); EOS % 1.1 % (0.0-3.0); HEMATOCRIT 29.1 % (36.0-47.0); LYMPH # 0.8 10^3/uL (1.5-5.0); LYMPH % 46.9 % (24.0-44.0); MEAN CORPUSCULAR HGB CONC 30.9 g/dl (32.0-36.5); MEAN CORPUSCULAR VOLUME 74.4 fl (80.0-96.0); MONO # 0.2 10^3/uL (0.0-0.8); MONO % 13.7 % (2.0-8.0); NEUTROPHILS % 32.6 % (36.0-66.0); PLATELET COUNT, AUTOMATED 143 10^3/uL (150-450); RED BLOOD COUNT 3.91 10^6/uL (4.00-5.40); WHITE BLOOD COUNT 1.8 10^3/uL (4.0-10.0)
[2023-07-15 06:52] LABS: INR 2.99; PROTHROMBIN TIME 29.9 SECONDS (12.5-14.5)
[2023-07-15 07:00] LABS: BLOOD UREA NITROGEN 11 MG/DL (9-23); CALCIUM LEVEL 6.8 MG/DL (8.3-10.6); CARBON DIOXIDE LEVEL 27 MMOL/L (20-31); CHLORIDE LEVEL 104 MMOL/L (98-107); CREATININE FOR GFR 0.82 MG/DL (0.55-1.30); GLOMERULAR FILTRATION RATE > 60.0 (>39); GLUCOSE, FASTING 98 MG/DL (74-106); POTASSIUM SERUM 3.1 MMOL/L (3.5-5.1); SODIUM LEVEL 137 MMOL/L (136-145)
[2023-07-15 07:17] LABS: NEUTROPHILS # 0.6 10^3/uL (1.5-8.5)
[2023-07-15] MEDS: POTASSIUM CHLORIDE 10% LIQ 20MEQ/15ML UDC PO ONE (08:41)
[2023-07-15] MEDS: POTASSIUM CHLORIDE 10% LIQ 20MEQ/15ML UDC PO SCH (09:00)
[2023-07-15] MEDS ORDERED: LevoFLOXacin 500 MG TABLET PO ONE (11:05)
[2023-07-15] MEDS: POTASSIUM CHLORIDE 10MEQ SR TABLET PO SCH (11:06)
[2023-07-15 12:39] LABS: BLOOD UREA NITROGEN 12 MG/DL (9-23); CALCIUM LEVEL 7.5 MG/DL (8.3-10.6); CARBON DIOXIDE LEVEL 26 MMOL/L (20-31); CHLORIDE LEVEL 104 MMOL/L (98-107); CREATININE FOR GFR 0.93 MG/DL (0.55-1.30); GLOMERULAR FILTRATION RATE > 60.0 (>39); GLUCOSE, FASTING 118 MG/DL (74-106); MAGNESIUM LEVEL 1.2 MG/DL (1.8-2.4); POTASSIUM SERUM 3.7 MMOL/L (3.5-5.1); SODIUM LEVEL 138 MMOL/L (136-145)
[2023-07-15 14:00] VITALS: BP 111/60; TEMP 97.9; O2SAT 91
[2023-07-15] MEDS: FILGRASTIM 480 MCG/0.8 ML SYRINGE **SC ADMINISTRATION ONLY SC SCH (14:00)
[2023-07-15 16:02] LABS: ERYTHROCYTE SEDIMENTATION RATE 60 mm/hr (0-30)
[2023-07-15 20:03] VITALS: BP 108/56; TEMP 98.2; O2SAT 91
[2023-07-15] MEDS: guaiFENesin 200 MG TAB PO SCH (21:43)
[2023-07-15] MEDS: MAGNESIUM OXIDE 400MG TAB (MAG-OX) PO ONE (21:43)
[2023-07-15] MEDS: METHENAMINE HIPPURATE 1GM TABLET PO SCH (21:44)
[2023-07-15] MEDS: CEFEPIME HCL 1 GM in D5W MINI-BAG PLUS 50 ML IV SCH (21:45)
[2023-07-15] MEDS: MAG SULF 1GM/100ML (MAG RUN) 1 GM in IV 1 EA IV SCH (23:00)
[2023-07-16 05:36] VITALS: BP 108/46; TEMP 98.6; O2SAT 96
[2023-07-16] MEDS ORDERED: LevoFLOXacin 250 MG TABLET PO SCH (06:00)
[2023-07-16 07:15] LABS: HEMATOCRIT 32.7 % (36.0-47.0); HEMOGLOBIN 10.2 g/dl (12.0-15.5); MEAN CORPUSCULAR HEMOGLOBIN 23.1 pg (27.0-33.0); MEAN CORPUSCULAR HGB CONC 31.2 g/dl (32.0-36.5); PLATELET COUNT, AUTOMATED 124 10^3/uL (150-450); RED BLOOD COUNT 4.42 10^6/uL (4.00-5.40); WHITE BLOOD COUNT 3.9 10^3/uL (4.0-10.0)
[2023-07-16 07:36] LABS: INR 1.79; PROTHROMBIN TIME 20.1 SECONDS (12.5-14.5)
[2023-07-16 08:25] LABS: ATYPICAL LYMPH 9 % (0-5); LYMPHOCYTES 21 % (16-44); MONOCYTES 9 % (0-5); NEUTROPHILS 54 % (28-66)
[2023-07-16 08:27] LABS: MICROCYTOSIS 2+
[2023-07-16] MEDS: ONDANSETRON 4MG 2ML VIAL IV STA (08:27)
[2023-07-16 08:28] LABS: ANISOCYTOSIS 1+; POIKILOCYTOSIS 1+
[2023-07-16 08:29] LABS: PLATELET ESTIMATE NORMAL (NORMAL)
[2023-07-16] MEDS: LACTOBACILLUS ACIDOPHILUS CAP (BACID) PO SCH (08:29)
[2023-07-16] MEDS: WARFARIN SOD 3MG TAB PO ONE (09:56)
[2023-07-16 14:00] VITALS: BP 109/49; TEMP 97.3; O2SAT 91
[2023-07-16 20:51] VITALS: BP 108/52; TEMP 98.6; O2SAT 94
[2023-07-17 05:18] VITALS: BP 101/48; TEMP 98.8; O2SAT 92
[2023-07-17 07:56] LABS: BASO % 0.7 % (0.0-1.0); EOS # 0.1 10^3/uL (0.0-0.5); EOS % 1.7 % (0.0-3.0); HEMATOCRIT 31.1 % (36.0-47.0); HEMOGLOBIN 9.6 g/dl (12.0-15.5); LYMPH # 0.7 10^3/uL (1.5-5.0); LYMPH % 21.5 % (24.0-44.0); MEAN CORPUSCULAR HEMOGLOBIN 22.9 pg (27.0-33.0); MEAN CORPUSCULAR HGB CONC 30.9 g/dl (32.0-36.5); MEAN CORPUSCULAR VOLUME 74.2 fl (80.0-96.0); MONO # 0.4 10^3/uL (0.0-0.8); MONO % 11.9 % (2.0-8.0); NEUTROPHILS # 1.5 10^3/uL (1.5-8.5); PLATELET COUNT, AUTOMATED 121 10^3/uL (150-450); RED BLOOD COUNT 4.19 10^6/uL (4.00-5.40)
[2023-07-17 08:04] LABS: INR 1.79; PROTHROMBIN TIME 20.2 SECONDS (12.5-14.5)
[2023-07-17 08:11] LABS: BLOOD UREA NITROGEN 13 MG/DL (9-23); CALCIUM LEVEL 7.5 MG/DL (8.3-10.6); CARBON DIOXIDE LEVEL 24 MMOL/L (20-31); CHLORIDE LEVEL 103 MMOL/L (98-107); CREATININE FOR GFR 0.86 MG/DL (0.55-1.30); GLOMERULAR FILTRATION RATE > 60.0 (>39); GLUCOSE, FASTING 104 MG/DL (74-106); POTASSIUM SERUM 4.3 MMOL/L (3.5-5.1); SODIUM LEVEL 134 MMOL/L (136-145)
[2023-07-17 08:52] LABS: MAGNESIUM LEVEL 1.8 MG/DL (1.8-2.4)
[2023-07-17] MEDS: ONDANSETRON 4MG 2ML VIAL IV PRN (12:26)
[2023-07-17 14:12] VITALS: BP 109/52; TEMP 97.9; O2SAT 95
[2023-07-17] MEDS: WARFARIN SOD 2MG TAB PO ONE (16:30)
[2023-07-17] MEDS: WARFARIN SOD 3MG TAB PO SCH (16:30)
[2023-07-17] MEDS ORDERED: WARFARIN SOD 3MG TAB PO SCH ×2 (17:00)
[2023-07-17 21:26] VITALS: BP 107/49; TEMP 97.7; O2SAT 92
[2023-07-18 05:52] VITALS: BP 103/53; TEMP 98.6; O2SAT 94
[2023-07-18 06:53] LABS: BASO % 1.3 % (0.0-1.0); EOS # 0.1 10^3/uL (0.0-0.5); EOS % 1.6 % (0.0-3.0); HEMATOCRIT 32.9 % (36.0-47.0); HEMOGLOBIN 10.1 g/dl (12.0-15.5); LYMPH # 0.5 10^3/uL (1.5-5.0); LYMPH % 16.8 % (24.0-44.0); MEAN CORPUSCULAR HGB CONC 30.7 g/dl (32.0-36.5); MEAN CORPUSCULAR VOLUME 74.8 fl (80.0-96.0); MONO # 0.6 10^3/uL (0.0-0.8); MONO % 19.7 % (2.0-8.0); NEUTROPHILS # 1.3 10^3/uL (1.5-8.5); NEUTROPHILS % 43.4 % (36.0-66.0); PLATELET COUNT, AUTOMATED 122 10^3/uL (150-450); WHITE BLOOD COUNT 3.1 10^3/uL (4.0-10.0)
[2023-07-18 07:01] LABS: INR 1.91; PROTHROMBIN TIME 21.2 SECONDS (12.5-14.5)
[2023-07-18 07:12] LABS: CALCIUM LEVEL 8.3 MG/DL (8.3-10.6); GLOMERULAR FILTRATION RATE 57.5 (>39); POTASSIUM SERUM 4.3 MMOL/L (3.5-5.1)
[2023-07-18] MEDS ORDERED: ENOXAPARIN 40MG/0.4ML SYRINGE (J1650 PER 10MG) SC SCH (09:00)
[2023-07-18 14:20] VITALS: BP 101/57; TEMP 98.3; O2SAT 91
[2023-07-18] MEDS: WARFARIN SOD 3MG TAB PO ONE (16:29)
[2023-07-18] MEDS ORDERED: WARFARIN SOD 2MG TAB PO ONE (17:00)
[2023-07-18 22:00] VITALS: BP 102/48; O2SAT 93
[2023-07-19 06:00] VITALS: BP 100/48; TEMP 98.4
[2023-07-19 06:18] LABS: HEMATOCRIT 32.7 % (36.0-47.0); HEMOGLOBIN 10.1 g/dl (12.0-15.5); MEAN CORPUSCULAR HEMOGLOBIN 22.6 pg (27.0-33.0); MEAN CORPUSCULAR HGB CONC 30.9 g/dl (32.0-36.5); MEAN CORPUSCULAR VOLUME 73.3 fl (80.0-96.0); PLATELET COUNT, AUTOMATED 120 10^3/uL (150-450); RED BLOOD COUNT 4.46 10^6/uL (4.00-5.40); WHITE BLOOD COUNT 3.9 10^3/uL (4.0-10.0)
[2023-07-19 06:33] LABS: INR 2.81; PROTHROMBIN TIME 28.5 SECONDS (12.5-14.5)
[2023-07-19 07:10] LABS: ATYPICAL LYMPH 4 % (0-5); BASOPHILS 2 % (0-1); LYMPHOCYTES 30 % (16-44); METAMYELOCYTES 2 % (0-0); MICROCYTOSIS 1+; MONOCYTES 18 % (0-5); MYELOCYTES 1 % (0-0); NEUTROPHILS 38 % (28-66); PLATELET ESTIMATE DECREASED (NORMAL); PROMYELOCYTES 3 % (0-0)
[2023-07-19 07:11] LABS: ANISOCYTOSIS 1+
[2023-07-19 07:12] LABS: POIKILOCYTOSIS 1+
[2023-07-19] MEDS: MAGNESIUM OXIDE 400MG TAB (MAG-OX) PO SCH (09:25)
[2023-07-19 09:48] VITALS: BP 97/64
[2023-07-19 13:06] VITALS: BP 109/63
[2023-07-19 16:47] VITALS: BP 92/49
[2023-07-19 20:37] VITALS: BP 93/48; TEMP 98.8; O2SAT 91
[2023-07-20 05:44] VITALS: BP 103/45; TEMP 97.2; O2SAT 94
[2023-07-20 06:12] LABS: BASO % 0.1 % (0.0-1.0); EOS % 0.4 % (0.0-3.0); HEMATOCRIT 32.2 % (36.0-47.0); MEAN CORPUSCULAR HEMOGLOBIN 22.7 pg (27.0-33.0); MEAN CORPUSCULAR HGB CONC 31.1 g/dl (32.0-36.5); MEAN CORPUSCULAR VOLUME 73.2 fl (80.0-96.0); MONO # 1.1 10^3/uL (0.0-0.8); MONO % 14.5 % (2.0-8.0); NEUTROPHILS # 4.2 10^3/uL (1.5-8.5); NEUTROPHILS % 53.8 % (36.0-66.0); PLATELET COUNT, AUTOMATED 154 10^3/uL (150-450); WHITE BLOOD COUNT 7.8 10^3/uL (4.0-10.0)
[2023-07-20] MEDS: MAGNESIUM OXIDE 400MG TAB (MAG-OX) PO SCH (08:33)
[2023-07-20 14:11] VITALS: BP 110/55; TEMP 97.4; O2SAT 89
[2023-07-20 22:00] VITALS: BP 103/48; TEMP 98.6; O2SAT 92
[2023-07-21 05:18] VITALS: BP 94/50; TEMP 98.3; O2SAT 99
[2023-07-21 06:21] VITALS: BP_SYST 101; BP_SYST 104; BP_DIAS 48; BP_DIAS 50
[2023-07-21 07:37] LABS: BASO # 0.1 10^3/uL (0.0-0.2); EOS # 0.1 10^3/uL (0.0-0.5); EOS % 1.2 % (0.0-3.0); HEMATOCRIT 30.4 % (36.0-47.0); HEMOGLOBIN 9.5 g/dl (12.0-15.5); LYMPH % 19.4 % (24.0-44.0); MEAN CORPUSCULAR HEMOGLOBIN 23.1 pg (27.0-33.0); MEAN CORPUSCULAR HGB CONC 31.3 g/dl (32.0-36.5); MEAN CORPUSCULAR VOLUME 73.8 fl (80.0-96.0); MONO # 0.7 10^3/uL (0.0-0.8); MONO % 12.7 % (2.0-8.0); NEUTROPHILS # 2.2 10^3/uL (1.5-8.5); NEUTROPHILS % 43.4 % (36.0-66.0); PLATELET COUNT, AUTOMATED 159 10^3/uL (150-450); RED BLOOD COUNT 4.12 10^6/uL (4.00-5.40); WHITE BLOOD COUNT 5.1 10^3/uL (4.0-10.0)
[2023-07-21] MEDS ORDERED: METH-855 PO (09:29)
[2023-07-21] MEDS ORDERED: TORS100T PO (09:29)
[2023-07-21] MEDS ORDERED: RISATAB3 PO (09:29)
[2023-07-21] MEDS ORDERED: MAGN400T2 PO (09:29)
[2023-07-21] MEDS: PINK BISMUTH SUSP 524MG/30ML ORAL SYRINGE PO SCH (12:12)
== END 2023-07-21 14:20 | DRG 391 ==
LOC: EDBD 20:17 → M ED 20:17 → M ED INP 20:18 → OBSVTOIN 20:19 → ENRESERV 07-12 01:45 → M MS5PR 07-12 02:14
PROVIDERS: ADMIT Internal Medicine; ATTEND Student in an Organized Health Care Education/Training Program
DX: A08.4 Viral intestinal infection, unspecified (principal); U07.1 COVID-19; C90.00 Multiple myeloma not having achieved remission; D84.9 Immunodeficiency, unspecified; N17.9 Acute kidney failure, unspecified; N39.0 Urinary tract infection, site not specified; I13.0 Hypertensive heart and chronic kidney disease with heart failure and stage 1 through stage 4 chronic kidney disease, or unspecified chronic kidney disease; I50.32 Chronic diastolic (congestive) heart failure; N18.30 Chronic kidney disease, stage 3 unspecified; R63.0 Anorexia; E87.6 Hypokalemia; E83.42 Hypomagnesemia; I27.81 Cor pulmonale (chronic); R54 Age-related physical debility; E03.9 Hypothyroidism, unspecified; K21.9 Gastro-esophageal reflux disease without esophagitis; G25.81 Restless legs syndrome; Z90.49 Acquired absence of other specified parts of digestive tract; Z90.79 Acquired absence of other genital organ(s); Z79.890 Hormone replacement therapy; Z79.899 Other long term (current) drug therapy; Z79.01 Long term (current) use of anticoagulants; Z92.21 Personal history of antineoplastic chemotherapy; Z88.8 Allergy status to other drugs, medicaments and biological substances; Z86.718 Personal history of other venous thrombosis and embolism

== ENCOUNTER → 2023-07-29 | Outpatient (REF) | payer MEDICARE ==
[~2023-07-29] MED LIST changes: +CALC1CAP31 PO; +METH-855 PO; +MIDO2.5T PO; +POTA-150 PO; +ROBILIQ13 PO
[2023-07-29 12:52] LABS: HEMATOCRIT 36.4 % (36.0-47.0); HEMOGLOBIN 11.2 g/dl (12.0-15.5); MEAN CORPUSCULAR HGB CONC 30.8 g/dl (32.0-36.5); MEAN CORPUSCULAR VOLUME 74.7 fl (80.0-96.0); PLATELET COUNT, AUTOMATED 316 10^3/uL (150-450); RED BLOOD COUNT 4.87 10^6/uL (4.00-5.40); WHITE BLOOD COUNT 6.8 10^3/uL (4.0-10.0)
[2023-07-29 13:04] LABS: PROTHROMBIN TIME 46.2 SECONDS (12.5-14.5)
[2023-07-29 13:19] LABS: CALCIUM LEVEL 9.1 MG/DL (8.3-10.6); CREATININE FOR GFR 1.19 MG/DL (0.55-1.30); GLOMERULAR FILTRATION RATE 47.1 (>39); POTASSIUM SERUM 4.3 MMOL/L (3.5-5.1)
[2023-07-29 13:38] LABS: ATYPICAL LYMPH 9 % (0-5); LYMPHOCYTES 1 % (16-44); METAMYELOCYTES 2 % (0-0); MONOCYTES 5 % (0-5); NEUTROPHILS 82 % (28-66); PLATELET ESTIMATE NORMAL (NORMAL)
[2023-07-29 13:40] LABS: MICROCYTOSIS 2+; SCHISTOCYTES 1+
[2023-07-29 13:41] LABS: OVALOCYTES 1+
[2023-07-29 14:43] LABS: INR 5.25
== END ==
LOC: M SFHCADAM 11:35
PROVIDERS: ATTEND Family Medicine
DX: Z51.81 Encounter for therapeutic drug level monitoring (principal); T45.511A Poisoning by anticoagulants, accidental (unintentional), initial encounter

== ENCOUNTER → 2023-07-29 | Outpatient (CLI) | payer MEDICARE | LOC: M ADAMS 12:01 | PROVIDERS: ATTEND Family Medicine | DX: I50.9 Heart failure, unspecified (principal); I13.0 Hypertensive heart and chronic kidney disease with heart failure and stage 1 through stage 4 chronic kidney disease, or unspecified chronic kidney disease ==

== ENCOUNTER → 2023-08-02 | Outpatient (REF) | payer MEDICARE, MEDICAID ==
[2023-08-02 10:59] LABS: INR 3.12; PROTHROMBIN TIME 30.9 SECONDS (12.5-14.5)
== END ==
PROVIDERS: ATTEND Family Medicine
DX: Z51.81 Encounter for therapeutic drug level monitoring (principal); T45.511A Poisoning by anticoagulants, accidental (unintentional), initial encounter

== ENCOUNTER → 2023-08-04 | Outpatient (REF) | payer MEDICARE, MEDICAID ==
[2023-08-04 11:27] LABS: INR 1.61; PROTHROMBIN TIME 18.6 SECONDS (12.5-14.5)
== END ==
PROVIDERS: ATTEND Physician Assistant
DX: Z79.01 Long term (current) use of anticoagulants (principal)

== ENCOUNTER 2023-08-11 08:35 | Outpatient (CLI) | payer MEDICARE, MEDICAID ==
[~2023-08-11] VITALS: Ht 149.9 cm; Wt 63.0 kg
[~2023-08-11 08:35] MED LIST changes: +ALBUTEROL SULFATE 2.5MG/0.5ML INH NEB SOLN INH PRN; +EPINEPHrine INJ 1 MG/ML 1ML AMP IM PRN; +NS 1,000 ML IV SCH; +diphenhydrAMINE 50MG/ML VIAL IV PRN; +methylPREDNISolone 125MG 2ML VIAL IV PRN
[2023-08-11 08:52] VITALS: BP 136/59; O2SAT 96
[2023-08-11] MEDS: ACETAMINOPHEN 650MG PO PRIOR TO INFUSION PO ONE (08:52)
[2023-08-11] MEDS: diphenhydrAMINE 25MG PO PRIOR TO INFUSION PO ONE (08:52)
[2023-08-11] MEDS: dexAMETHasone 4 MG TAB PO ONE (08:59)
[2023-08-11] MEDS: IMMUNE GLOBULIN 10% 10 GM in IV 1 EA IV ONE (09:01)
[2023-08-11] MEDS: IMMUNE GLOBULIN 10% 5 GM in IV 1 EA IV ONE (09:02)
[2023-08-11 09:30] VITALS: BP 104/57; O2SAT 98
[2023-08-11 10:00] VITALS: BP 111/60; O2SAT 98
[2023-08-11 11:00] VITALS: BP 107/54; O2SAT 100
== END 2023-08-11 11:00 | disposition home or self-care (01) ==
LOC: M INFU 08:35
PROVIDERS: ATTEND Internal Medicine Medical Oncology
DX: C90.00 Multiple myeloma not having achieved remission (principal); D80.1 Nonfamilial hypogammaglobulinemia; Z88.8 Allergy status to other drugs, medicaments and biological substances
CPT/HCPCS: 96365; 96366; J1459

== ENCOUNTER → 2023-08-24 | Outpatient (REF) | payer MEDICARE, MEDICAID ==
[~2023-08-24] MED LIST changes: -ALBUTEROL SULFATE 2.5MG/0.5ML INH NEB SOLN INH PRN; +ATOV750S FT; +BENZ200C70 PO; -EPINEPHrine INJ 1 MG/ML 1ML AMP IM PRN; +GUAI200T6 PO; +MIDO5TA PO; -NS 1,000 ML IV SCH; -diphenhydrAMINE 50MG/ML VIAL IV PRN; -methylPREDNISolone 125MG 2ML VIAL IV PRN
[2023-08-24 16:28] LABS: PROTHROMBIN TIME 46.3 SECONDS (12.5-14.5)
[2023-08-24 16:33] LABS: INR 5.27
== END ==
LOC: M SFHCADAM 12:13
PROVIDERS: ATTEND Family Medicine
DX: D69.9 Hemorrhagic condition, unspecified (principal); Z51.81 Encounter for therapeutic drug level monitoring

== ENCOUNTER 2023-09-08 08:20 | Outpatient (CLI) | payer MEDICARE, MEDICAID ==
[~2023-09-08] VITALS: Ht 149.9 cm; Wt 63.0 kg
[~2023-09-08 08:20] MED LIST changes: +ALBUTEROL SULFATE 2.5MG/0.5ML INH NEB SOLN INH PRN; -ATOV750S FT; -BENZ200C70 PO; +EPINEPHrine INJ 1 MG/ML 1ML AMP IM PRN; -GUAI200T6 PO; -MIDO5TA PO; +diphenhydrAMINE 50MG/ML VIAL IV PRN; +methylPREDNISolone 125MG 2ML VIAL IV PRN
[2023-09-08 08:55] VITALS: BP 117/54; O2SAT 94
[2023-09-08] MEDS ORDERED: NS 1,000 ML IV SCH (09:00)
[2023-09-08] MEDS: dexAMETHasone 4 MG TAB PO ONE (09:04)
[2023-09-08] MEDS: ACETAMINOPHEN TAB 650MG DOSE (2X325MG) PO ONE (09:05)
[2023-09-08] MEDS: diphenhydrAMINE 25MG CAP PO ONE (09:05)
[2023-09-08] MEDS: IMMUNE GLOBULIN 10% 10 GM in IV 1 EA IV ONE (09:10)
[2023-09-08] MEDS: IMMUNE GLOBULIN 10% 5 GM in IV 1 EA IV ONE (09:11)
[2023-09-08 10:00] VITALS: BP 133/74; O2SAT 95
[2023-09-08 10:30] VITALS: BP 120/59; O2SAT 96
[2023-09-08 11:30] VITALS: BP 131/58; O2SAT 100
== END 2023-09-08 11:40 ==
LOC: M INFU 08:20
PROVIDERS: ATTEND Internal Medicine Medical Oncology
DX: C90.00 Multiple myeloma not having achieved remission (principal); D80.1 Nonfamilial hypogammaglobulinemia; Z88.8 Allergy status to other drugs, medicaments and biological substances
CPT/HCPCS: 96365; 96366; J1459

== ENCOUNTER → 2023-10-01 | Outpatient (REF) | payer MEDICARE, MEDICAID ==
[~2023-10-01] MED LIST changes: -ALBUTEROL SULFATE 2.5MG/0.5ML INH NEB SOLN INH PRN; +ATOV750S FT; -EPINEPHrine INJ 1 MG/ML 1ML AMP IM PRN; -diphenhydrAMINE 50MG/ML VIAL IV PRN; -methylPREDNISolone 125MG 2ML VIAL IV PRN
[2023-10-01 10:00] LABS: HEMOGLOBIN 9.2 g/dl (12.0-15.5); MEAN CORPUSCULAR HEMOGLOBIN 24.3 pg (27.0-33.0); MEAN CORPUSCULAR HGB CONC 29.7 g/dl (32.0-36.5); PLATELET COUNT, AUTOMATED 180 10^3/uL (150-450); RED BLOOD COUNT 3.78 10^6/uL (4.00-5.40)
[2023-10-01 10:24] LABS: ALBUMIN 2.6 G/DL (3.2-5.2); CALCIUM LEVEL 9.3 MG/DL (8.3-10.6); CREATININE FOR GFR 0.97 MG/DL (0.55-1.30); GLOMERULAR FILTRATION RATE 59.6 (>39); PHOSPHORUS LEVEL 2.9 MG/DL (2.4-5.1); POTASSIUM SERUM 3.8 MMOL/L (3.5-5.1)
[2023-10-01 10:33] LABS: PTH INTACT 29.3 PG/ML (18.5-88.0)
[2023-10-01 11:22] LABS: BASOPHILS 2 % (0-1); EOSINOPHILS 1 % (0-3); LYMPHOCYTES 44 % (16-44); METAMYELOCYTES 1 % (0-0); MONOCYTES 4 % (0-5); MYELOCYTES 1 % (0-0); NEUTROPHILS 46 % (28-66)
[2023-10-01 11:24] LABS: HYPOCHROMASIA 1+
[2023-10-01 11:25] LABS: ANISOCYTOSIS 1+; MICROCYTOSIS 1+; PLATELET ESTIMATE NORMAL (NORMAL)
[2023-10-01 11:46] LABS: APPEARANCE, URINE CLEAR (CLEAR); BACTERIA, URINE AUTO 1+ (NEGATIVE); BILIRUBIN, URINE AUTO NEGATIVE (NEGATIVE); BLOOD, URINE BLOOD NEGATIVE (NEGATIVE); COLOR, URINE YELLOW (YELLOW); GLUCOSE, URINE (UA) AUTO NEGATIVE (NEGATIVE); KETONE, URINE AUTO NEGATIVE (NEGATIVE); LEUKOCYTE ESTERASE, URINE AUTO TRACE (NEGATIVE); NITRITE, URINE AUTO NEGATIVE (NEGATIVE); PROTEIN, URINE AUTO NEGATIVE (NEGATIVE); RBC, URINE AUTO 2 /HPF (0-3); SPECIFIC GRAVITY URINE AUTO 1.008 (1.002-1.035); SQUAMOUS EPITHELIAL CELL UR AU 0 /HPF (0-6); UROBILINOGEN, URINE AUTO 0.2 mg/dL (0.0-2.0); WBC, URINE AUTO 28 /HPF (0-3)
== END ==
PROVIDERS: ATTEND Internal Medicine Nephrology
DX: N18.32 Chronic kidney disease, stage 3b (principal); N25.81 Secondary hyperparathyroidism of renal origin; D63.1 Anemia in chronic kidney disease

== ENCOUNTER 2023-10-06 08:55 | Outpatient (CLI) | payer MEDICARE, MEDICAID ==
[~2023-10-06] VITALS: Ht 149.9 cm; Wt 58.0 kg
[2023-10-06 08:55] VITALS: BP 135/65; O2SAT 100
[~2023-10-06 08:55] MED LIST changes: +ALBUTEROL SULFATE 2.5MG/0.5ML INH NEB SOLN INH PRN; +EPINEPHrine INJ 1 MG/ML 1ML AMP IM PRN; +IMMUNE GLOBULIN 10% 5 GM in IV 1 EA IV ONE; +diphenhydrAMINE 50MG/ML VIAL IV PRN; +methylPREDNISolone 125MG 2ML VIAL IV PRN
[2023-10-06] MEDS: ACETAMINOPHEN TAB 650MG DOSE (2X325MG) PO ONE (09:13)
[2023-10-06] MEDS: dexAMETHasone 4 MG TAB PO ONE (09:13)
[2023-10-06] MEDS: diphenhydrAMINE 25MG CAP PO ONE (09:13)
[2023-10-06] MEDS ORDERED: NS 1,000 ML IV SCH (09:30)
[2023-10-06] MEDS: IMMUNE GLOBULIN 10% 10 GM in IV 1 EA IV ONE (09:37)
[2023-10-06] MEDS: IMMUNE GLOBULIN 10% 5 GM in IV 1 EA IV ONE (09:38)
[2023-10-06 10:30] VITALS: BP 127/60; O2SAT 98
[2023-10-06 11:00] VITALS: BP 124/71; O2SAT 96
[2023-10-06 12:02] VITALS: BP 121/64; O2SAT 99
== END 2023-10-06 12:20 | disposition home or self-care (01) ==
LOC: M INFU 08:55
PROVIDERS: ATTEND Internal Medicine Medical Oncology
DX: D80.1 Nonfamilial hypogammaglobulinemia (principal); Z88.8 Allergy status to other drugs, medicaments and biological substances
CPT/HCPCS: 96365; 96366; J1459

== ENCOUNTER 2023-10-15 11:31 | Emergency (ER) | payer MEDICARE, MEDICAID ==
[~2023-10-15] VITALS: Ht 147.3 cm; Wt 59.0 kg
[~2023-10-15 11:31] MED LIST changes: -ALBUTEROL SULFATE 2.5MG/0.5ML INH NEB SOLN INH PRN; -EPINEPHrine INJ 1 MG/ML 1ML AMP IM PRN; -IMMUNE GLOBULIN 10% 5 GM in IV 1 EA IV ONE; -diphenhydrAMINE 50MG/ML VIAL IV PRN; -methylPREDNISolone 125MG 2ML VIAL IV PRN
[2023-10-15] MEDS ORDERED: BENZ200C70 PO (12:56)
[2023-10-15] MEDS ORDERED: TORS100T PO (12:56)
[2023-10-15] MEDS ORDERED: BACI1CAP PO (12:56)
[2023-10-15] MEDS ORDERED: MAGN400T2 PO (12:56)
[2023-10-15] MEDS ORDERED: ATOV5SUS PO (12:56)
[2023-10-15] MEDS ORDERED: METH-855 PO (12:56)
[2023-10-15] MEDS ORDERED: MIDO5TA PO (12:56)
[2023-10-15] MEDS ORDERED: GUAI200T6 PO (12:56)
[2023-10-15] MEDS ORDERED: HOME MED LIST COMPLETE! XX SCH (13:00)
[2023-10-15] MEDS: ACETAMINOPH W/CODEINE #3 TAB UD PO ONE ×2 (15:58→16:06)
[2023-10-15 16:11] VITALS: BP 107/63; TEMP 97.3; O2SAT 98
== END 2023-10-15 16:57 | disposition home or self-care (01) ==
LOC: M ED 11:31
DX: S32.10XA Unspecified fracture of sacrum, initial encounter for closed fracture (principal); W19.XXXA Unspecified fall, initial encounter; Y92.009 Unspecified place in unspecified non-institutional (private) residence as the place of occurrence of the external cause; Y93.9 Activity, unspecified; Y99.9 Unspecified external cause status; M51.36 Other intervertebral disc degeneration, lumbar region; Z79.01 Long term (current) use of anticoagulants; Z79.899 Other long term (current) drug therapy; Z88.8 Allergy status to other drugs, medicaments and biological substances

== ENCOUNTER → 2023-10-20 | Outpatient (REF) | payer MEDICARE, MEDICAID ==
[~2023-10-20] MED LIST changes: +BENZ200C70 PO; +GUAI200T6 PO; +MIDO5TA PO
[2023-10-20 17:31] LABS: PROTHROMBIN TIME 46.3 SECONDS (12.5-14.5)
[2023-10-20 18:45] LABS: INR 5.26
== END ==
LOC: M LABDRWAD 16:48
PROVIDERS: ATTEND Physician Assistant
DX: Z51.81 Encounter for therapeutic drug level monitoring (principal)

== ENCOUNTER → 2023-10-22 | Outpatient (REF) | payer MEDICARE, MEDICAID | PROVIDERS: ATTEND Physician Assistant | DX: C90.00 Multiple myeloma not having achieved remission (principal); Z79.899 Other long term (current) drug therapy ==

== ENCOUNTER → 2023-10-27 | Outpatient (REF) | payer MEDICARE, MEDICAID ==
[2023-10-27 12:03] LABS: INR 1.34; PROTHROMBIN TIME 16.1 SECONDS (12.5-14.5)
== END ==
PROVIDERS: ATTEND Family Medicine
DX: I82.599 Chronic embolism and thrombosis of other specified deep vein of unspecified lower extremity (principal)

== ENCOUNTER → 2023-10-29 | Outpatient (CLI) | payer MEDICARE, MEDICAID | LOC: M SOG 07:55 | PROVIDERS: ATTEND Physician Assistant | DX: M54.50 Low back pain, unspecified (principal); Z53.9 Procedure and treatment not carried out, unspecified reason ==

== ENCOUNTER → 2023-11-03 | Outpatient (REF) | payer MEDICARE, MEDICAID ==
[2023-11-03 11:20] LABS: INR 2.15; PROTHROMBIN TIME 23.2 SECONDS (12.5-14.5)
== END ==
PROVIDERS: ATTEND Family Medicine
DX: I82.599 Chronic embolism and thrombosis of other specified deep vein of unspecified lower extremity (principal)

== ENCOUNTER → 2023-11-10 | Outpatient (REF) | payer MEDICARE, MEDICAID ==
[2023-11-10 12:00] LABS: INR 3.37; PROTHROMBIN TIME 32.8 SECONDS (12.5-14.5)
== END ==
PROVIDERS: ATTEND Family Medicine
DX: I82.599 Chronic embolism and thrombosis of other specified deep vein of unspecified lower extremity (principal); Z79.01 Long term (current) use of anticoagulants

== ENCOUNTER → 2023-12-03 | Outpatient (CLI) | payer MEDICARE, MEDICAID | LOC: M SOG 08:05 | PROVIDERS: ATTEND Physician Assistant | DX: M54.50 Low back pain, unspecified (principal); M51.36 Other intervertebral disc degeneration, lumbar region; Z87.81 Personal history of (healed) traumatic fracture; Z96.82 Presence of neurostimulator ==

== ENCOUNTER → 2023-12-08 | Outpatient (REF) | payer MEDICARE, MEDICAID ==
[~2023-12-08] MED LIST changes: +PHOS1TAB3 PO
[2023-12-08 10:57] LABS: BASO % 0.4 % (0.0-1.0); EOS # 0.1 10^3/uL (0.0-0.5); HEMATOCRIT 28.5 % (36.0-47.0); HEMOGLOBIN 8.5 g/dl (12.0-15.5); LYMPH % 9.8 % (24.0-44.0); MEAN CORPUSCULAR HEMOGLOBIN 22.1 pg (27.0-33.0); MEAN CORPUSCULAR HGB CONC 29.8 g/dl (32.0-36.5); MEAN CORPUSCULAR VOLUME 74.2 fl (80.0-96.0); MONO # 0.4 10^3/uL (0.0-0.8); MONO % 4.1 % (2.0-8.0); NEUTROPHILS # 8.7 10^3/uL (1.5-8.5); NEUTROPHILS % 83.9 % (36.0-66.0); PLATELET COUNT, AUTOMATED 198 10^3/uL (150-450); RED BLOOD COUNT 3.84 10^6/uL (4.00-5.40); WHITE BLOOD COUNT 10.4 10^3/uL (4.0-10.0)
[2023-12-08 11:29] LABS: BILIRUBIN,TOTAL 0.4 MG/DL (0.3-1.2); CREATININE FOR GFR 1.18 MG/DL (0.55-1.30); GLOMERULAR FILTRATION RATE 47.5 (>39); POTASSIUM SERUM 4.4 MMOL/L (3.5-5.1); TOTAL PROTEIN 5.5 G/DL (5.7-8.2)
== END ==
PROVIDERS: ATTEND Internal Medicine Medical Oncology
DX: C90.02 Multiple myeloma in relapse (principal)

== ENCOUNTER → 2023-12-18 | Outpatient (REF) | payer MEDICARE, MEDICAID ==
[2023-12-19 00:47] LABS: APPEARANCE, URINE TURBID (CLEAR); BACTERIA, URINE AUTO NEGATIVE (NEGATIVE); BILIRUBIN, URINE AUTO NEGATIVE (NEGATIVE); BLOOD, URINE BLOOD 1+ (NEGATIVE); COLOR, URINE YELLOW (YELLOW); GLUCOSE, URINE (UA) AUTO NEGATIVE (NEGATIVE); KETONE, URINE AUTO NEGATIVE (NEGATIVE); LEUKOCYTE ESTERASE, URINE AUTO 3+ (NEGATIVE); NITRITE, URINE AUTO POSITIVE (NEGATIVE); PROTEIN, URINE AUTO 2+ mg/dL (NEGATIVE); RBC, URINE AUTO 19 /HPF (0-3); RENAL EPITHELIAL CELLS 2 /HPF; SPECIFIC GRAVITY URINE AUTO 1.006 (1.002-1.035); SQUAMOUS EPITHELIAL CELL UR AU 13 /HPF (0-6); UROBILINOGEN, URINE AUTO 0.2 mg/dL (0.0-2.0); WBC, URINE AUTO TNTC /HPF (0-3)
== END ==
LOC: M LAB REF 23:42
PROVIDERS: ATTEND Family Medicine
DX: R30.0 Dysuria (principal)

== ENCOUNTER → 2023-12-22 | Outpatient (REF) | payer MEDICARE, MEDICAID ==
[2023-12-22 18:12] LABS: APPEARANCE, URINE TURBID (CLEAR); BACTERIA, URINE AUTO NEGATIVE (NEGATIVE); BILIRUBIN, URINE AUTO NEGATIVE (NEGATIVE); BLOOD, URINE BLOOD NEGATIVE (NEGATIVE); COLOR, URINE AMBER (YELLOW); GLUCOSE, URINE (UA) AUTO NEGATIVE (NEGATIVE); KETONE, URINE AUTO NEGATIVE (NEGATIVE); LEUKOCYTE ESTERASE, URINE AUTO 3+ (NEGATIVE); NITRITE, URINE AUTO POSITIVE (NEGATIVE); PROTEIN, URINE AUTO 1+ mg/dL (NEGATIVE); RBC, URINE AUTO 8 /HPF (0-3); SPECIFIC GRAVITY URINE AUTO 1.009 (1.002-1.035); SQUAMOUS EPITHELIAL CELL UR AU 1 /HPF (0-6); UROBILINOGEN, URINE AUTO 0.2 mg/dL (0.0-2.0); WBC, URINE AUTO TNTC /HPF (0-3)
== END ==
PROVIDERS: ATTEND Physician Assistant
DX: R30.0 Dysuria (principal)

== ENCOUNTER → 2023-12-24 | Outpatient (REF) | payer MEDICARE, MEDICAID ==
[2023-12-24 18:39] LABS: APPEARANCE, URINE HAZY (CLEAR); BACTERIA, URINE AUTO 1+ (NEGATIVE); BILIRUBIN, URINE AUTO NEGATIVE (NEGATIVE); BLOOD, URINE BLOOD NEGATIVE (NEGATIVE); COLOR, URINE STRAW (YELLOW); GLUCOSE, URINE (UA) AUTO NEGATIVE (NEGATIVE); KETONE, URINE AUTO NEGATIVE (NEGATIVE); LEUKOCYTE ESTERASE, URINE AUTO 2+ (NEGATIVE); NITRITE, URINE AUTO NEGATIVE (NEGATIVE); PROTEIN, URINE AUTO NEGATIVE (NEGATIVE); RBC, URINE AUTO 2 /HPF (0-3); SPECIFIC GRAVITY URINE AUTO 1.005 (1.002-1.035); SQUAMOUS EPITHELIAL CELL UR AU 0 /HPF (0-6); UROBILINOGEN, URINE AUTO 0.2 mg/dL (0.0-2.0); WBC, URINE AUTO 83 /HPF (0-3)
== END ==
PROVIDERS: ATTEND Family Medicine
DX: R30.0 Dysuria (principal)

== ENCOUNTER 2023-12-28 07:13 | Outpatient (CLI) | payer MEDICARE, MEDICAID ==
[~2023-12-28 07:13] MED LIST changes: +ALBUTEROL SULFATE 2.5MG/0.5ML INH NEB SOLN INH PRN; +EPINEPHrine INJ 1 MG/ML 1ML AMP IM PRN; +NS 1,000 ML IV SCH; +diphenhydrAMINE 50MG/ML VIAL IV PRN; +methylPREDNISolone 125MG 2ML VIAL IV PRN
[2023-12-28 08:00] VITALS: BP 137/88; O2SAT 98
[2023-12-28] MEDS: diphenhydrAMINE 25MG PO PRIOR TO INFUSION PO ONE (08:16)
[2023-12-28] MEDS: ACETAMINOPHEN 650MG PO PRIOR TO INFUSION PO ONE (08:16)
[2023-12-28] MEDS: dexAMETHasone 4 MG TAB PO ONE (08:16)
[2023-12-28] MEDS: IMMUNE GLOBULIN 10% 10 GM in IV 1 EA IV ONE (08:43)
[2023-12-28 09:15] VITALS: BP 127/86; O2SAT 99
[2023-12-28 09:45] VITALS: BP 128/86; O2SAT 98
[2023-12-28 10:46] VITALS: BP 123/81; O2SAT 95
[2023-12-30] MEDS ORDERED: PHOS1TAB3 PO (10:54)
== END 2023-12-28 11:00 ==
LOC: M INFU 07:13
PROVIDERS: ATTEND Internal Medicine Medical Oncology
DX: D80.1 Nonfamilial hypogammaglobulinemia (principal); Z88.8 Allergy status to other drugs, medicaments and biological substances
CPT/HCPCS: 96365; 96366; J1459

== ENCOUNTER → 2024-01-19 | Outpatient (REF) | payer MEDICARE, MEDICAID ==
[~2024-01-19] MED LIST changes: -ALBUTEROL SULFATE 2.5MG/0.5ML INH NEB SOLN INH PRN; +B-122500 PO; +CEPH500T PO; -DARZ1SOL IV; -EPINEPHrine INJ 1 MG/ML 1ML AMP IM PRN; -NS 1,000 ML IV SCH; +[UNRECOGNIZED DRUG - CODE] IV; -diphenhydrAMINE 50MG/ML VIAL IV PRN; -methylPREDNISolone 125MG 2ML VIAL IV PRN
[2024-01-19 10:40] LABS: BASO % 0.8 % (0.0-1.0); EOS # 0.2 10^3/uL (0.0-0.5); EOS % 3.5 % (0.0-3.0); HEMATOCRIT 36.4 % (36.0-47.0); HEMOGLOBIN 11.3 g/dl (12.0-15.5); LYMPH # 1.3 10^3/uL (1.5-5.0); LYMPH % 27.3 % (24.0-44.0); MEAN CORPUSCULAR HEMOGLOBIN 27.6 pg (27.0-33.0); MONO # 0.3 10^3/uL (0.0-0.8); MONO % 6.2 % (2.0-8.0); NEUTROPHILS % 61.6 % (36.0-66.0); PLATELET COUNT, AUTOMATED 178 10^3/uL (150-450); RED BLOOD COUNT 4.09 10^6/uL (4.00-5.40); WHITE BLOOD COUNT 4.8 10^3/uL (4.0-10.0)
[2024-01-19 10:53] LABS: ALBUMIN 3.2 G/DL (3.2-5.2); ALKALINE PHOSPHATASE 107 U/L (46-116); ALT/SGPT 20 U/L (7.0-40); AST/SGOT 16 U/L (<34); BILIRUBIN,TOTAL 0.6 MG/DL (0.3-1.2); BLOOD UREA NITROGEN 22 MG/DL (9-23); CALCIUM LEVEL 8.9 MG/DL (8.3-10.6); CARBON DIOXIDE LEVEL 29 MMOL/L (20-31); CHLORIDE LEVEL 104 MMOL/L (98-107); CREATININE FOR GFR 1.22 MG/DL (0.55-1.30); GLOMERULAR FILTRATION RATE 45.6 (>39); GLUCOSE, FASTING 109 MG/DL (74-106); IMMUNOGLOBULIN G 240 MG/DL (650-1600); POTASSIUM SERUM 3.7 MMOL/L (3.5-5.1); SODIUM LEVEL 139 MMOL/L (136-145); TOTAL PROTEIN 5.5 G/DL (5.7-8.2)
[2024-01-19 12:08] LABS: IMMUNOGLOBULIN A < 33.0 MG/DL (40-350)
[2024-01-20 08:02] LABS: T P ELECTROPHORESIS SO 5.3 g/dL (6.1-8.1)
[2024-01-20 14:48] LABS: FREE KAPPA LIGHT CHAINS SERUM 1.1 mg/L (3.3-19.4); FREE LAMBDA LIGHT CHAINS SERUM < 1.5 mg/L (5.7-26.3); KAPPA/LAMBDA RATIO SERUM > 0.73 (0.26-1.65)
[2024-01-21 10:51] LABS: ALBUMIN SPEP 3.2 g/dL (3.8-4.8); ALPHA-1-GLOBULINS SO 0.3 g/dL (0.2-0.3); ALPHA-2-GLOBULINS SO 0.9 g/dL (0.5-0.9); BETA 2 GLOBULIN 0.3 g/dL (0.2-0.5); BETA-GLOBULIN SO 0.4 g/dL (0.4-0.6); GAMMA GLOBULINS SO 0.2 g/dL (0.8-1.7)
== END ==
PROVIDERS: ATTEND Internal Medicine Medical Oncology
DX: C90.02 Multiple myeloma in relapse (principal)

== ENCOUNTER 2024-01-25 07:46 | Outpatient (CLI) | payer MEDICARE, MEDICAID ==
[~2024-01-25] VITALS: Ht 148.6 cm; Wt 62.0 kg
[~2024-01-25 07:46] MED LIST changes: +ALBUTEROL SULFATE 2.5MG/0.5ML INH NEB SOLN INH PRN; -CEPH500T PO; +EPINEPHrine INJ 1 MG/ML 1ML AMP IM PRN; +diphenhydrAMINE 50MG/ML VIAL IV PRN; +methylPREDNISolone 125MG 2ML VIAL IV PRN
[2024-01-25] MEDS: diphenhydrAMINE 25MG PO PRIOR TO INFUSION PO ONE (07:55)
[2024-01-25] MEDS: dexAMETHasone 4 MG TAB PO ONE (07:56)
[2024-01-25] MEDS: ACETAMINOPHEN 650MG PO PRIOR TO INFUSION PO ONE (07:56)
[2024-01-25] MEDS ORDERED: NS 1,000 ML IV SCH (08:00)
[2024-01-25 08:11] VITALS: BP 143/66; O2SAT 97
[2024-01-25] MEDS: IMMUNE GLOBULIN 10% 10 GM in IV 1 EA IV ONE (08:20)
[2024-01-25 09:00] VITALS: BP 149/67; O2SAT 99
[2024-01-25 09:30] VITALS: BP_SYST 144; BP_SYST 150; BP_DIAS 66; O2SAT 96; O2SAT 98
== END 2024-01-25 10:40 ==
LOC: M INFU 07:46
PROVIDERS: ATTEND Internal Medicine Medical Oncology
DX: D80.1 Nonfamilial hypogammaglobulinemia (principal); Z88.8 Allergy status to other drugs, medicaments and biological substances
CPT/HCPCS: 96365; 96366; J1459

== ENCOUNTER → 2024-01-28 | Outpatient (REF) | payer MEDICARE, MEDICAID ==
[~2024-01-28] MED LIST changes: -ALBUTEROL SULFATE 2.5MG/0.5ML INH NEB SOLN INH PRN; +BACI50OI TOP; +CEPH500T PO; -EPINEPHrine INJ 1 MG/ML 1ML AMP IM PRN; -diphenhydrAMINE 50MG/ML VIAL IV PRN; -methylPREDNISolone 125MG 2ML VIAL IV PRN
[2024-01-28 07:07] LABS: BASO % 0.7 % (0.0-1.0); EOS # 0.1 10^3/uL (0.0-0.5); EOS % 2.1 % (0.0-3.0); HEMATOCRIT 33.6 % (36.0-47.0); HEMOGLOBIN 10.8 g/dl (12.0-15.5); LYMPH # 0.9 10^3/uL (1.5-5.0); LYMPH % 32.4 % (24.0-44.0); MEAN CORPUSCULAR HEMOGLOBIN 28.8 pg (27.0-33.0); MEAN CORPUSCULAR HGB CONC 32.1 g/dl (32.0-36.5); MEAN CORPUSCULAR VOLUME 89.6 fl (80.0-96.0); MONO # 0.3 10^3/uL (0.0-0.8); MONO % 10.7 % (2.0-8.0); NEUTROPHILS # 1.5 10^3/uL (1.5-8.5); NEUTROPHILS % 53.7 % (36.0-66.0); PLATELET COUNT, AUTOMATED 123 10^3/uL (150-450); RED BLOOD COUNT 3.75 10^6/uL (4.00-5.40); WHITE BLOOD COUNT 2.8 10^3/uL (4.0-10.0)
[2024-01-28 08:59] LABS: ALBUMIN 2.7 G/DL (3.2-5.2); BLOOD UREA NITROGEN 19 MG/DL (9-23); CALCIUM LEVEL 7.4 MG/DL (8.3-10.6); CARBON DIOXIDE LEVEL 27 MMOL/L (20-31); CHLORIDE LEVEL 107 MMOL/L (98-107); CREATININE FOR GFR 0.96 MG/DL (0.55-1.30); GLOMERULAR FILTRATION RATE > 60.0 (>39); GLUCOSE, FASTING 86 MG/DL (74-106); PHOSPHORUS LEVEL 2.5 MG/DL (2.4-5.1); POTASSIUM SERUM 3.3 MMOL/L (3.5-5.1); PTH INTACT 261.5 PG/ML (18.5-88.0); SODIUM LEVEL 140 MMOL/L (136-145)
[2024-01-28 18:52] LABS: APPEARANCE, URINE HAZY (CLEAR); BACTERIA, URINE AUTO 2+ (NEGATIVE); BILIRUBIN, URINE AUTO NEGATIVE (NEGATIVE); BLOOD, URINE BLOOD NEGATIVE (NEGATIVE); COLOR, URINE YELLOW (YELLOW); GLUCOSE, URINE (UA) AUTO NEGATIVE (NEGATIVE); KETONE, URINE AUTO NEGATIVE (NEGATIVE); LEUKOCYTE ESTERASE, URINE AUTO 3+ (NEGATIVE); NITRITE, URINE AUTO NEGATIVE (NEGATIVE); PROTEIN, URINE AUTO NEGATIVE (NEGATIVE); RBC, URINE AUTO 1 /HPF (0-3); SPECIFIC GRAVITY URINE AUTO 1.006 (1.002-1.035); SQUAMOUS EPITHELIAL CELL UR AU 0 /HPF (0-6); UROBILINOGEN, URINE AUTO 0.2 mg/dL (0.0-2.0); WBC, URINE AUTO 80 /HPF (0-3)
== END ==
PROVIDERS: ATTEND Internal Medicine Nephrology
DX: N18.32 Chronic kidney disease, stage 3b (principal); N25.81 Secondary hyperparathyroidism of renal origin; D63.1 Anemia in chronic kidney disease

== ENCOUNTER → 2024-02-02 | Outpatient (REF) | payer MEDICARE, MEDICAID ==
[2024-02-02 11:49] LABS: BASO % 0.5 % (0.0-1.0); EOS # 0.1 10^3/uL (0.0-0.5); EOS % 0.9 % (0.0-3.0); HEMATOCRIT 41.1 % (36.0-47.0); HEMOGLOBIN 12.9 g/dl (12.0-15.5); LYMPH # 1.5 10^3/uL (1.5-5.0); LYMPH % 20.1 % (24.0-44.0); MEAN CORPUSCULAR HGB CONC 31.4 g/dl (32.0-36.5); MEAN CORPUSCULAR VOLUME 92.4 fl (80.0-96.0); MONO # 0.5 10^3/uL (0.0-0.8); MONO % 6.1 % (2.0-8.0); NEUTROPHILS # 5.4 10^3/uL (1.5-8.5); NEUTROPHILS % 72.1 % (36.0-66.0); PLATELET COUNT, AUTOMATED 143 10^3/uL (150-450); RED BLOOD COUNT 4.45 10^6/uL (4.00-5.40); WHITE BLOOD COUNT 7.5 10^3/uL (4.0-10.0)
[2024-02-02 12:37] LABS: ALBUMIN 3.3 G/DL (3.2-5.2); BILIRUBIN,TOTAL 0.4 MG/DL (0.3-1.2); CREATININE FOR GFR 1.06 MG/DL (0.55-1.30); GLOMERULAR FILTRATION RATE 53.7 (>39); POTASSIUM SERUM 4.6 MMOL/L (3.5-5.1)
== END ==
PROVIDERS: ATTEND Internal Medicine Medical Oncology
DX: C90.02 Multiple myeloma in relapse (principal)

== ENCOUNTER 2024-02-22 07:55 | Outpatient (CLI) | payer MEDICARE, MEDICAID ==
[~2024-02-22] VITALS: Ht 147.3 cm; Wt 63.0 kg
[~2024-02-22 07:55] MED LIST changes: +ALBUTEROL SULFATE 2.5MG/0.5ML INH NEB SOLN INH PRN; +EPINEPHrine INJ 1 MG/ML 1ML AMP IM PRN; +NS 1,000 ML IV SCH; +diphenhydrAMINE 50MG/ML VIAL IV PRN; +methylPREDNISolone 125MG 2ML VIAL IV PRN
[2024-02-22] MEDS: dexAMETHasone 4 MG TAB PO ONE (08:15)
[2024-02-22] MEDS: diphenhydrAMINE 25MG PO PRIOR TO INFUSION PO ONE (08:15)
[2024-02-22] MEDS: ACETAMINOPHEN 650MG PO PRIOR TO INFUSION PO ONE (08:15)
[2024-02-22 08:17] VITALS: BP 115/66; O2SAT 99
[2024-02-22] MEDS: IMMUNE GLOBULIN 10% 10 GM in IV 1 EA IV ONE (08:50)
[2024-02-22 09:30] VITALS: BP 122/66; O2SAT 99
[2024-02-22 10:00] VITALS: BP 142/67; O2SAT 98
[2024-02-22 10:35] VITALS: BP 131/66; O2SAT 98
== END 2024-02-22 10:55 ==
LOC: M INFU 07:55
PROVIDERS: ATTEND Internal Medicine Medical Oncology
DX: D80.1 Nonfamilial hypogammaglobulinemia (principal); Z88.8 Allergy status to other drugs, medicaments and biological substances
CPT/HCPCS: 96365; 96366; J1459

== ENCOUNTER 2024-03-01 06:23 | Inpatient (IN) | payer MEDICARE, MEDICAID ==
[2024-03-01] VITALS (10 sets, daily range): BP systolic 97–150; BP diastolic 46–60; TEMP 98.2–98.8; O2SAT 86–100
[~2024-03-01] VITALS: Ht 149.9 cm; Wt 59.6 kg
[~2024-03-01 06:23] MED LIST changes: -ALBUTEROL SULFATE 2.5MG/0.5ML INH NEB SOLN INH PRN; -EPINEPHrine INJ 1 MG/ML 1ML AMP IM PRN; -NS 1,000 ML IV SCH; -diphenhydrAMINE 50MG/ML VIAL IV PRN; -methylPREDNISolone 125MG 2ML VIAL IV PRN
[2024-03-01] MEDS ORDERED: AMIODARONE HCL 150 MG/100 ML PREMIXED BAG (NEXTERONE) As Ordered ONE (06:47)
[2024-03-01] MEDS ORDERED: AMIODARONE HCL 360 MG/200 ML PREMIXED BAG (NEXTERONE) As Ordered ONE (06:47)
[2024-03-01] MEDS: AMIODARONE HCL 150 MG in IV 1 EA IV ONE (06:50)
[2024-03-01] MEDS: CALCIUM GLUCONATE 1,000MG/10ML VIAL (100MG/ML) IV ONE (06:55)
[2024-03-01] MEDS: AMIODARONE HCL 360 MG in IV 1 EA IV SCH (06:55)
[2024-03-01 06:59] LABS: BASO # 0.1 10^3/uL (0.0-0.2); BASO % 0.5 % (0.0-1.0); EOS % 0.1 % (0.0-3.0); HEMATOCRIT 46.7 % (36.0-47.0); HEMOGLOBIN 15.2 g/dl (12.0-15.5); LYMPH # 2.1 10^3/uL (1.5-5.0); LYMPH % 13.6 % (24.0-44.0); MEAN CORPUSCULAR HEMOGLOBIN 30.8 pg (27.0-33.0); MEAN CORPUSCULAR HGB CONC 32.5 g/dl (32.0-36.5); MEAN CORPUSCULAR VOLUME 94.7 fl (80.0-96.0); MONO # 0.7 10^3/uL (0.0-0.8); MONO % 4.3 % (2.0-8.0); NEUTROPHILS # 12.3 10^3/uL (1.5-8.5); NEUTROPHILS % 80.9 % (36.0-66.0); PLATELET COUNT, AUTOMATED 183 10^3/uL (150-450); RED BLOOD COUNT 4.93 10^6/uL (4.00-5.40); WHITE BLOOD COUNT 15.2 10^3/uL (4.0-10.0)
[2024-03-01 07:09] LABS: INR 2.01; PROTHROMBIN TIME 22.1 SECONDS (12.5-14.5)
[2024-03-01 08:17] LABS: LIPASE 56 U/L (12-53)
[2024-03-01 08:18] LABS: CK-MB VALUE MASS < 1.0 NG/ML (<3.6)
[2024-03-01 08:20] LABS: CPK CREATINE PHOSPHOKINASE 36 U/L (34-145); MB/CK RELATIVE INDEX 2.77 (< OR =4)
[2024-03-01 08:39] LABS: ALKALINE PHOSPHATASE 108 U/L (46-116); ALT/SGPT 25 U/L (7.0-40); AST/SGOT 21 U/L (<34); BILIRUBIN,DIRECT 0.4 MG/DL (<0.4); BILIRUBIN,TOTAL 0.9 MG/DL (0.3-1.2); BLOOD UREA NITROGEN 27 MG/DL (9-23); CALCIUM LEVEL 9.4 MG/DL (8.3-10.6); CARBON DIOXIDE LEVEL 21 MMOL/L (20-31); CHLORIDE LEVEL 123 MMOL/L (98-107); CREATININE FOR GFR 1.28 MG/DL (0.55-1.30); GLOMERULAR FILTRATION RATE 43.2 (>39); GLUCOSE, FASTING 211 MG/DL (74-106); POTASSIUM SERUM 8.5 MMOL/L (3.5-5.1); SODIUM LEVEL 147 MMOL/L (136-145); TOTAL PROTEIN 5.7 G/DL (5.7-8.2)
[2024-03-01] MEDS: SODIUM BICARBONATE 8.4% INJ 50ML SYRINGE IV ONE (08:51)
[2024-03-01] MEDS: DEXTROSE 50% 50ML SYRINGE IV ONE (08:51)
[2024-03-01] MEDS: HumuLIN R (REGULAR) INSULIN (NovoLIN R) **100U/ML** PER UNIT IV ONE (08:51)
[2024-03-01] MEDS: PATIROMER SORBITEX CALCIUM 8.4 GM POWDER PACKET (VELTASSA) PO ONE (08:52)
[2024-03-01] MEDS ORDERED: BACI1CAP PO (11:28)
[2024-03-01] MEDS ORDERED: RISATAB3 PO (11:29)
[2024-03-01] MEDS ORDERED: HOME MED LIST COMPLETE! XX SCH (11:50)
[2024-03-01] MEDS: FUROSEMIDE 40MG/4ML VIAL IV ONE ×2 (11:59→20:26)
[2024-03-01] MEDS ORDERED: ONDANSETRON 4MG TAB PO PRN (12:10)
[2024-03-01] MEDS ORDERED: LOPERAMIDE 2 MG CAPLET PO PRN (12:10)
[2024-03-01] MEDS ORDERED: BALMEX CREAM 60GM TOP PRN (12:10)
[2024-03-01] MEDS: LR 1,000 ML IV SCH ×2 (14:01→21:33)
[2024-03-01] MEDS: MAG SULF 1GM/100ML (MAG RUN) 1 GM in IV 1 EA IV ONE (14:20)
[2024-03-01] MEDS: WARFARIN SOD 3MG TAB PO SCH (16:43)
[2024-03-01] MEDS: MIDODRINE 2.5 MG TAB PO SCH (16:43)
[2024-03-01 16:44] LABS: CALCIUM LEVEL 10.5 MG/DL (8.3-10.6); CREATININE FOR GFR 1.13 MG/DL (0.55-1.30); GLOMERULAR FILTRATION RATE 49.8 (>39)
[2024-03-01] MEDS: ACYCLOVIR 200 MG CAPSULE PO SCH (20:26)
[2024-03-01] MEDS: MAGNESIUM OXIDE 400MG TAB (MAG-OX) PO SCH (20:27)
[2024-03-01] MEDS: rOPINIRole 1MG TAB PO SCH (20:27)
[2024-03-01] MEDS: METHENAMINE HIPPURATE 1GM TABLET PO SCH (20:27)
[2024-03-02] VITALS (10 sets, daily range): BP systolic 92–129; BP diastolic 48–60; TEMP 97.1–98.1; O2SAT 90–99
[2024-03-02 03:05] LABS: CALCIUM LEVEL 8.9 MG/DL (8.3-10.6); CREATININE FOR GFR 1.09 MG/DL (0.55-1.30); POTASSIUM SERUM 4.9 MMOL/L (3.5-5.1)
[2024-03-02] MEDS: ACETAMINOPH W/CODEINE #3 TAB UD PO PRN (05:00)
[2024-03-02 05:38] LABS: BASO % 0.6 % (0.0-1.0); EOS # 0.1 10^3/uL (0.0-0.5); HEMATOCRIT 40.5 % (36.0-47.0); HEMOGLOBIN 13.3 g/dl (12.0-15.5); LYMPH # 0.7 10^3/uL (1.5-5.0); LYMPH % 14.4 % (24.0-44.0); MEAN CORPUSCULAR HEMOGLOBIN 31.4 pg (27.0-33.0); MEAN CORPUSCULAR HGB CONC 32.8 g/dl (32.0-36.5); MEAN CORPUSCULAR VOLUME 95.7 fl (80.0-96.0); MONO # 0.4 10^3/uL (0.0-0.8); MONO % 8.4 % (2.0-8.0); NEUTROPHILS # 3.7 10^3/uL (1.5-8.5); NEUTROPHILS % 74.4 % (36.0-66.0); PLATELET COUNT, AUTOMATED 120 10^3/uL (150-450); RED BLOOD COUNT 4.23 10^6/uL (4.00-5.40)
[2024-03-02 06:06] LABS: ALBUMIN 2.7 G/DL (3.2-5.2); BILIRUBIN,TOTAL 0.6 MG/DL (0.3-1.2); CREATININE FOR GFR 1.07 MG/DL (0.55-1.30); GLOMERULAR FILTRATION RATE 53.1 (>39); MAGNESIUM LEVEL 2.4 MG/DL (1.8-2.4); TOTAL PROTEIN 5.5 G/DL (5.7-8.2)
[2024-03-02] MEDS: LEVOTHYROXINE 50MCG TABLET (0.05MG) PO SCH (06:14)
[2024-03-02] MEDS: CYANOCOBALAMIN 500 MCG TAB PO SCH (08:48)
[2024-03-02] MEDS: VITAMIN D 1,000 INTERNATIONAL UNITS TABLET PO SCH (08:48)
[2024-03-02] MEDS: OMEPRAZOLE 20MG CAP PO SCH (08:49)
[2024-03-02] MEDS: LACTOBACILLUS ACIDOPHILUS CAP (BACID) PO SCH (08:50)
[2024-03-02] MEDS: TORSEMIDE 100 MG TAB PO SCH (08:51)
[2024-03-02] MEDS: CALCITRIOL 0.25 MCG CAP (S0169) PO SCH (08:51)
[2024-03-02] MEDS: ATOVAQUONE SUSP 750MG/5ML 210 ML BTL PO SCH (08:52)
[2024-03-02] MEDS ORDERED: ENOXAPARIN 40MG/0.4ML SYRINGE (J1650 PER 10MG) SC SCH (09:00)
[2024-03-02] MEDS: TORSEMIDE (DEMADEX) 50 MG PER 1/2 TAB PO SCH (15:24)
[2024-03-02] MEDS: cefTRIAXone SOD 1 GM in D5W MINI-BAG PLUS 50 ML IV SCH (21:40)
[2024-03-03 04:00] VITALS: BP 106/61; TEMP 96.8; O2SAT 97
[2024-03-03 05:21] LABS: HEMATOCRIT 40.4 % (36.0-47.0); HEMOGLOBIN 13.6 g/dl (12.0-15.5); MEAN CORPUSCULAR HEMOGLOBIN 31.6 pg (27.0-33.0); MEAN CORPUSCULAR HGB CONC 33.7 g/dl (32.0-36.5); PLATELET COUNT, AUTOMATED 128 10^3/uL (150-450); WHITE BLOOD COUNT 3.9 10^3/uL (4.0-10.0)
[2024-03-03 05:34] LABS: INR 2.69; PARTIAL THROMBOPLASTIN TIME 47.8 SECONDS (24.8-34.2); PROTHROMBIN TIME 27.6 SECONDS (12.5-14.5)
[2024-03-03 05:50] LABS: ALBUMIN 2.7 G/DL (3.2-5.2); BILIRUBIN,TOTAL 0.4 MG/DL (0.3-1.2); CALCIUM LEVEL 8.8 MG/DL (8.3-10.6); CREATININE FOR GFR 0.99 MG/DL (0.55-1.30); GLOMERULAR FILTRATION RATE 58.1 (>39); POTASSIUM SERUM 4.7 MMOL/L (3.5-5.1); TOTAL PROTEIN 5.4 G/DL (5.7-8.2)
[2024-03-03] MEDS ORDERED: CEFD1CAP9 PO (07:24)
[2024-03-03 08:00] VITALS: BP 107/67; TEMP 96.9; O2SAT 97
== END 2024-03-03 12:27 | DRG 641 ==
LOC: M ED 06:23 → EDBD 06:23 → M ED INP 11:26 → M ICU 12:42
PROVIDERS: ADMIT Internal Medicine Pulmonary Disease; ATTEND Internal Medicine
PROC: B246ZZZ Ultrasonography of Right and Left Heart (ICD-10-PCS; principal; 2024-03-02)
DX: E87.5 Hyperkalemia (principal); C90.00 Multiple myeloma not having achieved remission; I47.20 Ventricular tachycardia, unspecified; I50.42 Chronic combined systolic (congestive) and diastolic (congestive) heart failure; I13.0 Hypertensive heart and chronic kidney disease with heart failure and stage 1 through stage 4 chronic kidney disease, or unspecified chronic kidney disease; K52.1 Toxic gastroenteritis and colitis; N39.0 Urinary tract infection, site not specified; I25.10 Atherosclerotic heart disease of native coronary artery without angina pectoris; J44.9 Chronic obstructive pulmonary disease, unspecified; I45.4 Nonspecific intraventricular block; K21.9 Gastro-esophageal reflux disease without esophagitis; E03.9 Hypothyroidism, unspecified; T50.0X5A Adverse effect of mineralocorticoids and their antagonists, initial encounter; N18.31 Chronic kidney disease, stage 3a; E83.42 Hypomagnesemia; Z90.49 Acquired absence of other specified parts of digestive tract; I95.9 Hypotension, unspecified; Z90.79 Acquired absence of other genital organ(s); M54.50 Low back pain, unspecified; Z79.01 Long term (current) use of anticoagulants; Z79.890 Hormone replacement therapy; Z79.899 Other long term (current) drug therapy; Z88.8 Allergy status to other drugs, medicaments and biological substances; Z86.73 Personal history of transient ischemic attack (TIA), and cerebral infarction without residual deficits; Z86.718 Personal history of other venous thrombosis and embolism; R73.03 Prediabetes; G25.81 Restless legs syndrome

== ENCOUNTER → 2024-03-06 | Outpatient (REF) | payer MEDICARE, MEDICAID ==
[~2024-03-06] MED LIST changes: +CEFD1CAP9 PO
[2024-03-06 10:08] LABS: HEMATOCRIT 38.2 % (36.0-47.0); HEMOGLOBIN 12.5 g/dl (12.0-15.5); MEAN CORPUSCULAR HEMOGLOBIN 31.1 pg (27.0-33.0); MEAN CORPUSCULAR HGB CONC 32.7 g/dl (32.0-36.5); PLATELET COUNT, AUTOMATED 130 10^3/uL (150-450); RED BLOOD COUNT 4.02 10^6/uL (4.00-5.40); WHITE BLOOD COUNT 5.7 10^3/uL (4.0-10.0)
[2024-03-06 11:03] LABS: ALBUMIN 2.6 G/DL (3.2-5.2); ALKALINE PHOSPHATASE 92 U/L (46-116); ALT/SGPT 18 U/L (7.0-40); AST/SGOT 17 U/L (<34); BILIRUBIN,TOTAL 0.5 MG/DL (0.3-1.2); BLOOD UREA NITROGEN 17 MG/DL (9-23); CALCIUM LEVEL 8.7 MG/DL (8.3-10.6); CARBON DIOXIDE LEVEL 32 MMOL/L (20-31); CHLORIDE LEVEL 103 MMOL/L (98-107); CREATININE FOR GFR 0.95 MG/DL (0.55-1.30); GLOMERULAR FILTRATION RATE > 60.0 (>39); GLUCOSE, FASTING 91 MG/DL (74-106); POTASSIUM SERUM 3.8 MMOL/L (3.5-5.1); SODIUM LEVEL 141 MMOL/L (136-145)
[2024-03-06 11:21] LABS: HEMOGLOBIN A1c 5.4 % (4.0-6.0)
== END ==
LOC: EEVIPCON
PROVIDERS: ATTEND Family Medicine
DX: I50.42 Chronic combined systolic (congestive) and diastolic (congestive) heart failure (principal); E03.9 Hypothyroidism, unspecified; R73.01 Impaired fasting glucose

== ENCOUNTER → 2024-03-22 | Outpatient (REF) | payer MEDICARE, MEDICAID ==
[2024-03-22 10:57] LABS: INR 2.47; PROTHROMBIN TIME 25.8 SECONDS (12.5-14.5)
[2024-03-22 11:16] LABS: BLOOD UREA NITROGEN 14 MG/DL (9-23); CALCIUM LEVEL 8.7 MG/DL (8.3-10.6); CARBON DIOXIDE LEVEL 31 MMOL/L (20-31); CHLORIDE LEVEL 107 MMOL/L (98-107); CREATININE FOR GFR 0.91 MG/DL (0.55-1.30); GLOMERULAR FILTRATION RATE > 60.0 (>39); GLUCOSE, FASTING 120 MG/DL (74-106); SODIUM LEVEL 143 MMOL/L (136-145)
== END ==
PROVIDERS: ATTEND Family Medicine
DX: E87.5 Hyperkalemia (principal); N18.30 Chronic kidney disease, stage 3 unspecified; Z79.01 Long term (current) use of anticoagulants

== ENCOUNTER → 2024-03-24 | Outpatient (CLI) | payer MEDICARE, MEDICAID ==
[~2024-03-24] MED LIST changes: +AMMO12CR7 TOP; +POTA-136 PO
== END ==
LOC: M RAD 10:53
PROVIDERS: ATTEND Physician Assistant
DX: M85.88 Other specified disorders of bone density and structure, other site (principal); M51.34 Other intervertebral disc degeneration, thoracic region; M51.35 Other intervertebral disc degeneration, thoracolumbar region

== ENCOUNTER → 2024-03-29 | Outpatient (REF) | payer MEDICARE, MEDICAID ==
[~2024-03-29] MED LIST changes: -MIDO2.5T PO; +MIDO2.5T3 PO; +NYST1POW3 TOP; -NYST1POW9 TOP
[2024-03-29 09:50] LABS: BASO # 0.1 10^3/uL (0.0-0.2); BASO % 0.9 % (0.0-1.0); EOS # 0.2 10^3/uL (0.0-0.5); EOS % 4.1 % (0.0-3.0); HEMATOCRIT 38.5 % (36.0-47.0); HEMOGLOBIN 12.8 g/dl (12.0-15.5); LYMPH # 0.8 10^3/uL (1.5-5.0); LYMPH % 14.5 % (24.0-44.0); MEAN CORPUSCULAR HEMOGLOBIN 31.8 pg (27.0-33.0); MEAN CORPUSCULAR HGB CONC 33.2 g/dl (32.0-36.5); MEAN CORPUSCULAR VOLUME 95.5 fl (80.0-96.0); MONO # 0.4 10^3/uL (0.0-0.8); MONO % 7.5 % (2.0-8.0); NEUTROPHILS # 4.1 10^3/uL (1.5-8.5); NEUTROPHILS % 72.8 % (36.0-66.0); PLATELET COUNT, AUTOMATED 183 10^3/uL (150-450); RED BLOOD COUNT 4.03 10^6/uL (4.00-5.40); WHITE BLOOD COUNT 5.6 10^3/uL (4.0-10.0)
[2024-03-29 10:19] LABS: ALBUMIN 2.8 G/DL (3.2-5.2); BILIRUBIN,TOTAL 0.6 MG/DL (0.3-1.2); CALCIUM LEVEL 9.2 MG/DL (8.3-10.6); CREATININE FOR GFR 0.99 MG/DL (0.55-1.30); GLOMERULAR FILTRATION RATE 58.1 (>39); MAGNESIUM LEVEL 2.3 MG/DL (1.8-2.4); POTASSIUM SERUM 3.9 MMOL/L (3.5-5.1); TOTAL PROTEIN 5.4 G/DL (5.7-8.2)
== END ==
PROVIDERS: ATTEND Internal Medicine Medical Oncology
DX: C90.02 Multiple myeloma in relapse (principal)

== ENCOUNTER → 2024-03-31 | Outpatient (REF) | payer MEDICARE, MEDICAID ==
[2024-03-31 08:48] LABS: BASO % 0.2 % (0.0-1.0); HEMATOCRIT 38.4 % (36.0-47.0); HEMOGLOBIN 12.5 g/dl (12.0-15.5); LYMPH # 0.7 10^3/uL (1.5-5.0); LYMPH % 16.3 % (24.0-44.0); MEAN CORPUSCULAR HEMOGLOBIN 31.8 pg (27.0-33.0); MEAN CORPUSCULAR HGB CONC 32.6 g/dl (32.0-36.5); MEAN CORPUSCULAR VOLUME 97.7 fl (80.0-96.0); MONO # 0.3 10^3/uL (0.0-0.8); MONO % 7.3 % (2.0-8.0); NEUTROPHILS # 3.3 10^3/uL (1.5-8.5); NEUTROPHILS % 75.7 % (36.0-66.0); PLATELET COUNT, AUTOMATED 207 10^3/uL (150-450); RED BLOOD COUNT 3.93 10^6/uL (4.00-5.40); WHITE BLOOD COUNT 4.4 10^3/uL (4.0-10.0)
[2024-03-31 09:18] LABS: CALCIUM LEVEL 9.3 MG/DL (8.3-10.6); GLOMERULAR FILTRATION RATE 57.4 (>39); MAGNESIUM LEVEL 2.4 MG/DL (1.8-2.4); PHOSPHORUS LEVEL 3.3 MG/DL (2.4-5.1)
[2024-03-31 09:20] LABS: PTH INTACT 81.8 PG/ML (18.5-88.0)
[2024-03-31 09:22] LABS: TOTAL 25(OH) VITAMIN D 56.5 NG/ML (20.0-100.0)
== END ==
PROVIDERS: ATTEND Internal Medicine Nephrology
DX: N18.32 Chronic kidney disease, stage 3b (principal); N25.81 Secondary hyperparathyroidism of renal origin; D63.1 Anemia in chronic kidney disease; E83.42 Hypomagnesemia; E55.9 Vitamin D deficiency, unspecified

== ENCOUNTER → 2024-05-01 | Outpatient (REF) | payer MEDICARE, MEDICAID ==
[~2024-05-01] MED LIST changes: +DARA100V IV; -[UNRECOGNIZED DRUG - CODE] IV
[2024-05-01 12:06] LABS: BASO % 0.3 % (0.0-1.0); EOS # 0.1 10^3/uL (0.0-0.5); EOS % 0.9 % (0.0-3.0); HEMATOCRIT 39.7 % (36.0-47.0); HEMOGLOBIN 12.8 g/dl (12.0-15.5); LYMPH # 1.1 10^3/uL (1.5-5.0); MEAN CORPUSCULAR HEMOGLOBIN 32.2 pg (27.0-33.0); MEAN CORPUSCULAR HGB CONC 32.2 g/dl (32.0-36.5); MONO # 0.5 10^3/uL (0.0-0.8); MONO % 5.2 % (2.0-8.0); NEUTROPHILS % 82.3 % (36.0-66.0); PLATELET COUNT, AUTOMATED 138 10^3/uL (150-450); RED BLOOD COUNT 3.97 10^6/uL (4.00-5.40); WHITE BLOOD COUNT 9.8 10^3/uL (4.0-10.0)
[2024-05-01 13:17] LABS: ALBUMIN 3.1 G/DL (3.2-5.2); ALKALINE PHOSPHATASE 153 U/L (35-104); ALT/SGPT 22 U/L (7.0-40); AST/SGOT 18 U/L (<34); BILIRUBIN,TOTAL 0.8 MG/DL (0.3-1.2); BLOOD UREA NITROGEN 17 MG/DL (9-23); CALCIUM LEVEL 9.5 MG/DL (8.3-10.6); CARBON DIOXIDE LEVEL 31 MMOL/L (20-31); CHLORIDE LEVEL 105 MMOL/L (98-107); CREATININE FOR GFR 0.85 MG/DL (0.55-1.30); GLOMERULAR FILTRATION RATE > 60.0 (>39); GLUCOSE, FASTING 105 MG/DL (74-106); POTASSIUM SERUM 3.8 MMOL/L (3.5-5.1); SODIUM LEVEL 144 MMOL/L (136-145); TOTAL PROTEIN 5.5 G/DL (5.7-8.2)
[2024-05-02 11:37] LABS: FREE LAMBDA LIGHT CHAINS SERUM 4.1 mg/L (5.7-26.3); KAPPA/LAMBDA RATIO SERUM 2.44 (0.26-1.65)
[2024-05-02 12:32] LABS: T P ELECTROPHORESIS SO 5.4 g/dL (6.1-8.1)
[2024-05-03 09:16] LABS: ALBUMIN SPEP 3.2 g/dL (3.8-4.8); ALPHA-1-GLOBULINS SO 0.3 g/dL (0.2-0.3); ALPHA-2-GLOBULINS SO 0.9 g/dL (0.5-0.9); BETA 2 GLOBULIN 0.3 g/dL (0.2-0.5); BETA-GLOBULIN SO 0.4 g/dL (0.4-0.6); GAMMA GLOBULINS SO 0.2 g/dL (0.8-1.7)
== END ==
PROVIDERS: ATTEND Internal Medicine Medical Oncology
DX: C90.02 Multiple myeloma in relapse (principal)

== ENCOUNTER 2024-05-10 09:42 | Outpatient (CLI) | payer MEDICARE, MEDICAID ==
[2024-05-10] VITALS (7 sets, daily range): BP systolic 115–143; BP diastolic 57–70; O2SAT 94–98
[~2024-05-10] VITALS: Ht 160 cm; Wt 66.8 kg
[~2024-05-10 09:42] MED LIST changes: +ALBUTEROL SULFATE 2.5MG/0.5ML INH NEB SOLN INH PRN; +EPINEPHrine INJ 1 MG/ML 1ML AMP IM PRN; +NS 1,000 ML IV SCH; +diphenhydrAMINE 50MG/ML VIAL IV PRN; +methylPREDNISolone 125MG 2ML VIAL IV PRN
[2024-05-10] MEDS: IMMUNE GLOBULIN 10% 20 GM in IV 1 EA IV ONE (10:39)
[2024-05-10] MEDS: IMMUNE GLOBULIN 10% 10 GM in IV 1 EA IV ONE (10:40)
[2024-05-10] MEDS: ACETAMINOPHEN 325 MG TAB PO ONE (11:19)
[2024-05-10] MEDS: diphenhydrAMINE 25MG CAP PO ONE (11:20)
== END 2024-05-10 14:10 ==
LOC: M INFU 09:42
PROVIDERS: ATTEND Internal Medicine Medical Oncology
DX: D80.1 Nonfamilial hypogammaglobulinemia (principal); Z88.8 Allergy status to other drugs, medicaments and biological substances
CPT/HCPCS: 96365; 96366; J1459

== ENCOUNTER → 2024-05-15 | Outpatient (CLI) | payer MEDICARE, MEDICAID ==
[~2024-05-15] MED LIST changes: -ALBUTEROL SULFATE 2.5MG/0.5ML INH NEB SOLN INH PRN; -EPINEPHrine INJ 1 MG/ML 1ML AMP IM PRN; -NS 1,000 ML IV SCH; -diphenhydrAMINE 50MG/ML VIAL IV PRN; -methylPREDNISolone 125MG 2ML VIAL IV PRN
== END ==
LOC: M WHC 08:19
PROVIDERS: ATTEND Internal Medicine Medical Oncology
DX: C90.00 Multiple myeloma not having achieved remission (principal); M81.0 Age-related osteoporosis without current pathological fracture; M85.88 Other specified disorders of bone density and structure, other site

== ENCOUNTER → 2024-05-29 | Outpatient (REF) | payer MEDICARE, MEDICAID ==
[~2024-05-29] MED LIST changes: +OXYC-141 PO; +OXYC10TA12 PO
[2024-05-29 10:29] LABS: BASO % 0.4 % (0.0-1.0); EOS # 0.1 10^3/uL (0.0-0.5); EOS % 1.9 % (0.0-3.0); HEMATOCRIT 39.4 % (36.0-47.0); HEMOGLOBIN 12.7 g/dl (12.0-15.5); LYMPH # 1.3 10^3/uL (1.5-5.0); LYMPH % 27.6 % (24.0-44.0); MEAN CORPUSCULAR HEMOGLOBIN 31.8 pg (27.0-33.0); MEAN CORPUSCULAR HGB CONC 32.2 g/dl (32.0-36.5); MEAN CORPUSCULAR VOLUME 98.5 fl (80.0-96.0); MONO # 0.4 10^3/uL (0.0-0.8); MONO % 7.7 % (2.0-8.0); NEUTROPHILS % 62.2 % (36.0-66.0); PLATELET COUNT, AUTOMATED 141 10^3/uL (150-450); WHITE BLOOD COUNT 4.8 10^3/uL (4.0-10.0)
[2024-05-29 11:08] LABS: ALBUMIN 3.3 G/DL (3.2-5.2); ALKALINE PHOSPHATASE 105 U/L (35-104); ALT/SGPT 20 U/L (7.0-40); AST/SGOT 25 U/L (<34); BILIRUBIN,TOTAL 0.5 MG/DL (0.3-1.2); BLOOD UREA NITROGEN 17 MG/DL (9-23); CALCIUM LEVEL 9.3 MG/DL (8.3-10.6); CARBON DIOXIDE LEVEL 29 MMOL/L (20-31); CHLORIDE LEVEL 102 MMOL/L (98-107); CREATININE FOR GFR 0.88 MG/DL (0.55-1.30); GLOMERULAR FILTRATION RATE > 60.0 (>39); GLUCOSE, FASTING 69 MG/DL (74-106); POTASSIUM SERUM 3.5 MMOL/L (3.5-5.1); SODIUM LEVEL 141 MMOL/L (136-145); TOTAL PROTEIN 5.8 G/DL (5.7-8.2)
== END ==
PROVIDERS: ATTEND Internal Medicine Medical Oncology
DX: C90.00 Multiple myeloma not having achieved remission (principal)

== ENCOUNTER → 2024-06-05 | Outpatient (CLI) | payer MEDICARE, MEDICAID ==
[~2024-06-05] VITALS: Ht 149.9 cm; Wt 65.5 kg
[2024-06-05 14:27] VITALS: BP 112/70; O2SAT 97
== END ==
LOC: M PAL 14:08
PROVIDERS: ATTEND Family Medicine
DX: Z51.5 Encounter for palliative care (principal); C90.00 Multiple myeloma not having achieved remission; R52 Pain, unspecified; Z79.1 Long term (current) use of non-steroidal anti-inflammatories (NSAID); Z79.891 Long term (current) use of opiate analgesic; Z79.890 Hormone replacement therapy; Z79.899 Other long term (current) drug therapy; Z79.01 Long term (current) use of anticoagulants; Z88.8 Allergy status to other drugs, medicaments and biological substances

== ENCOUNTER 2024-06-07 10:02 | Outpatient (CLI) | payer MEDICARE, MEDICAID ==
[~2024-06-07] VITALS: Ht 149.9 cm; Wt 64.5 kg
[~2024-06-07 10:02] MED LIST changes: +ALBUTEROL SULFATE 2.5MG/0.5ML INH NEB SOLN INH PRN; +EPINEPHrine INJ 1 MG/ML 1ML AMP IM PRN; +NS (Normal Saline) 0.9% 1,000 ML IV SCH; +diphenhydrAMINE 50MG/ML VIAL IV PRN; +methylPREDNISolone 125MG 2ML VIAL IV PRN
[2024-06-07 10:10] VITALS: BP 122/61; O2SAT 98
[2024-06-07 11:43] LABS: IMMUNOGLOBULIN G 427 MG/DL (650-1600); IMMUNOGLOBULIN M < 21.0 MG/DL (50-300)
[2024-06-07] MEDS: IMMUNE GLOBULIN 10% 20 GM in IV 1 EA IV ONE (12:16)
[2024-06-07] MEDS: IMMUNE GLOBULIN 10% 10 GM in IV 1 EA IV ONE (12:18)
[2024-06-07 12:45] VITALS: BP 137/61; O2SAT 97
[2024-06-07 13:15] VITALS: BP 140/71; O2SAT 98
[2024-06-07] MEDS: ACETAMINOPHEN 650MG PO PRIOR TO INFUSION PO ONE (13:27)
[2024-06-07] MEDS: diphenhydrAMINE 25MG PO PRIOR TO INFUSION PO ONE (13:27)
[2024-06-07 13:45] VITALS: BP 137/79; O2SAT 98
[2024-06-07 14:45] VITALS: BP 129/58; O2SAT 97
[2024-06-07] MEDS: SODIUM CHLORIDE 0.9% INJ 10 ML SYR IV SCH (15:14)
[2024-06-07 15:15] VITALS: BP 123/58; O2SAT 97
== END 2024-06-07 15:20 ==
LOC: M INFU 10:02
PROVIDERS: ATTEND Internal Medicine Medical Oncology
DX: D80.1 Nonfamilial hypogammaglobulinemia (principal); Z88.8 Allergy status to other drugs, medicaments and biological substances
CPT/HCPCS: 36591; 82784; 96365; 96366; J1459; J1642

== ENCOUNTER → 2024-06-26 | Outpatient (REF) | payer MEDICARE, MEDICAID ==
[~2024-06-26] MED LIST changes: -ALBUTEROL SULFATE 2.5MG/0.5ML INH NEB SOLN INH PRN; -EPINEPHrine INJ 1 MG/ML 1ML AMP IM PRN; +LIDO30CR18 TOP; +MORP15TASA PO; -NS (Normal Saline) 0.9% 1,000 ML IV SCH; -diphenhydrAMINE 50MG/ML VIAL IV PRN; -methylPREDNISolone 125MG 2ML VIAL IV PRN
[2024-06-26 10:48] LABS: BASO % 0.7 % (0.0-1.0); EOS # 0.1 10^3/uL (0.0-0.5); EOS % 3.7 % (0.0-3.0); HEMOGLOBIN 13.1 g/dl (12.0-15.5); LYMPH # 1.1 10^3/uL (1.5-5.0); MEAN CORPUSCULAR HEMOGLOBIN 30.5 pg (27.0-33.0); MEAN CORPUSCULAR VOLUME 95.3 fl (80.0-96.0); MONO # 0.2 10^3/uL (0.0-0.8); MONO % 8.1 % (2.0-8.0); NEUTROPHILS # 1.3 10^3/uL (1.5-8.5); NEUTROPHILS % 46.5 % (36.0-66.0); PLATELET COUNT, AUTOMATED 125 10^3/uL (150-450); WHITE BLOOD COUNT 2.7 10^3/uL (4.0-10.0)
[2024-06-26 11:20] LABS: IMMUNOGLOBULIN A 49.6 MG/DL (40-350)
[2024-06-26 11:21] LABS: IMMUNOGLOBULIN G 915 MG/DL (650-1600)
[2024-06-26 11:22] LABS: ALKALINE PHOSPHATASE 95 U/L (35-104); ALT/SGPT 22 U/L (7.0-40); AST/SGOT 25 U/L (<34); BILIRUBIN,TOTAL 0.4 MG/DL (0.3-1.2); BLOOD UREA NITROGEN 20 MG/DL (9-23); CALCIUM LEVEL 8.6 MG/DL (8.3-10.6); CARBON DIOXIDE LEVEL 30 MMOL/L (20-31); CHLORIDE LEVEL 104 MMOL/L (98-107); CREATININE FOR GFR 0.82 MG/DL (0.55-1.30); GLOMERULAR FILTRATION RATE > 60.0 (>39); GLUCOSE, FASTING 128 MG/DL (74-106); POTASSIUM SERUM 3.9 MMOL/L (3.5-5.1); SODIUM LEVEL 145 MMOL/L (136-145)
[2024-06-26 11:35] LABS: IMMUNOGLOBULIN M < 21.0 MG/DL (50-300)
[2024-06-27 12:43] LABS: T P ELECTROPHORESIS SO 5.8 g/dL (6.1-8.1)
[2024-06-27 13:04] LABS: FREE KAPPA LIGHT CHAINS SERUM 11.2 mg/L (3.3-19.4); FREE LAMBDA LIGHT CHAINS SERUM 6.5 mg/L (5.7-26.3); KAPPA/LAMBDA RATIO SERUM 1.72 (0.26-1.65)
[2024-06-29 07:18] LABS: ALBUMIN SPEP 3.4 g/dL (3.8-4.8); ALPHA-1-GLOBULINS SO 0.3 g/dL (0.2-0.3); ALPHA-2-GLOBULINS SO 0.8 g/dL (0.5-0.9); BETA 2 GLOBULIN 0.3 g/dL (0.2-0.5); BETA-GLOBULIN SO 0.4 g/dL (0.4-0.6); GAMMA GLOBULINS SO 0.7 g/dL (0.8-1.7)
== END ==
PROVIDERS: ATTEND Internal Medicine Medical Oncology
DX: C90.00 Multiple myeloma not having achieved remission (principal); I10 Essential (primary) hypertension; Z79.01 Long term (current) use of anticoagulants

== ENCOUNTER → 2024-06-26 | Outpatient (REF) | payer MEDICARE, MEDICAID ==
[2024-06-26 10:58] LABS: INR 1.14; PROTHROMBIN TIME 14.9 SECONDS (12.5-14.5)
== END ==
PROVIDERS: ATTEND Family Medicine
DX: I10 Essential (primary) hypertension (principal); Z79.01 Long term (current) use of anticoagulants

== ENCOUNTER 2024-07-05 10:30 | Outpatient (CLI) | payer MEDICARE, MEDICAID ==
[~2024-07-05] VITALS: Ht 149.9 cm; Wt 64.5 kg
[2024-07-05 10:30] VITALS: BP 139/63; O2SAT 97
[~2024-07-05 10:30] MED LIST changes: +ALBUTEROL SULFATE 2.5MG/0.5ML INH NEB SOLN INH PRN; +EPINEPHrine INJ 1 MG/ML 1ML AMP IM PRN; +IMMUNE GLOBULIN 10% 10 GM in IV 1 EA IV ONE; -LIDO30CR18 TOP; -MORP15TASA PO; +NS (Normal Saline) 0.9% 1,000 ML IV SCH; +diphenhydrAMINE 50MG/ML VIAL IV PRN; +methylPREDNISolone 125MG 2ML VIAL IV PRN
[2024-07-05] MEDS: ACETAMINOPHEN 650MG PO PRIOR TO INFUSION PO ONE (10:41)
[2024-07-05] MEDS: diphenhydrAMINE 25MG PO PRIOR TO INFUSION PO ONE (10:41)
[2024-07-05] MEDS: IMMUNE GLOBULIN 10% 20 GM in IV 1 EA IV ONE (10:42)
[2024-07-05 11:30] VITALS: BP 118/59; O2SAT 100
[2024-07-05 12:00] VITALS: BP 120/57; O2SAT 98
[2024-07-05 12:30] VITALS: BP 122/61; O2SAT 98
[2024-07-05 13:20] VITALS: BP 121/67; O2SAT 96
[2024-07-05] MEDS: SODIUM CHLORIDE 0.9% INJ 10 ML SYR IV SCH (13:27)
[2024-07-06] MEDS ORDERED: OXYC-141 PO (14:32)
== END 2024-07-05 13:40 ==
LOC: M INFU 10:30
PROVIDERS: ATTEND Internal Medicine Medical Oncology
DX: D80.1 Nonfamilial hypogammaglobulinemia (principal); Z88.8 Allergy status to other drugs, medicaments and biological substances
CPT/HCPCS: 96365; 96366; J1459; J1642

== ENCOUNTER → 2024-07-11 | Outpatient (CLI) | payer MEDICARE, MEDICAID ==
[~2024-07-11] VITALS: Ht 149.9 cm; Wt 63.5 kg
[~2024-07-11] MED LIST changes: -ALBUTEROL SULFATE 2.5MG/0.5ML INH NEB SOLN INH PRN; -EPINEPHrine INJ 1 MG/ML 1ML AMP IM PRN; -IMMUNE GLOBULIN 10% 10 GM in IV 1 EA IV ONE; +LIDO30CR18 TOP; +MORP15TASA PO; -NS (Normal Saline) 0.9% 1,000 ML IV SCH; -diphenhydrAMINE 50MG/ML VIAL IV PRN; -methylPREDNISolone 125MG 2ML VIAL IV PRN
[2024-07-11 13:11] VITALS: BP 122/72; O2SAT 96
== END ==
LOC: M PAL 12:27
PROVIDERS: ATTEND Family Medicine
DX: C90.00 Multiple myeloma not having achieved remission (principal); Z79.01 Long term (current) use of anticoagulants; Z79.891 Long term (current) use of opiate analgesic; Z79.899 Other long term (current) drug therapy; Z88.8 Allergy status to other drugs, medicaments and biological substances

== ENCOUNTER → 2024-07-19 | Outpatient (REF) | payer MEDICARE, MEDICAID ==
[2024-07-19 09:41] LABS: INR 1.51; PROTHROMBIN TIME 18.5 SECONDS (12.5-14.5)
== END ==
PROVIDERS: ATTEND Family Medicine
DX: N18.30 Chronic kidney disease, stage 3 unspecified (principal); Z79.01 Long term (current) use of anticoagulants

== ENCOUNTER → 2024-07-26 | Outpatient (REF) | payer MEDICARE, MEDICAID ==
[2024-07-26 09:52] LABS: BASO % 0.7 % (0.0-1.0); EOS # 0.1 10^3/uL (0.0-0.5); EOS % 3.8 % (0.0-3.0); HEMATOCRIT 36.7 % (36.0-47.0); HEMOGLOBIN 11.8 g/dl (12.0-15.5); LYMPH # 1.2 10^3/uL (1.5-5.0); LYMPH % 40.3 % (24.0-44.0); MEAN CORPUSCULAR HEMOGLOBIN 30.6 pg (27.0-33.0); MEAN CORPUSCULAR HGB CONC 32.2 g/dl (32.0-36.5); MEAN CORPUSCULAR VOLUME 95.1 fl (80.0-96.0); MONO # 0.3 10^3/uL (0.0-0.8); MONO % 10.4 % (2.0-8.0); NEUTROPHILS # 1.3 10^3/uL (1.5-8.5); NEUTROPHILS % 44.5 % (36.0-66.0); PLATELET COUNT, AUTOMATED 120 10^3/uL (150-450); RED BLOOD COUNT 3.86 10^6/uL (4.00-5.40); WHITE BLOOD COUNT 2.9 10^3/uL (4.0-10.0)
[2024-07-26 10:36] LABS: ALBUMIN 2.7 G/DL (3.2-5.2); BLOOD UREA NITROGEN 20 MG/DL (9-23); CALCIUM LEVEL 8.4 MG/DL (8.3-10.6); CARBON DIOXIDE LEVEL 32 MMOL/L (20-31); CHLORIDE LEVEL 106 MMOL/L (98-107); CREATININE FOR GFR 0.88 MG/DL (0.55-1.30); GLOMERULAR FILTRATION RATE > 60.0 (>39); GLUCOSE, FASTING 75 MG/DL (74-106); PHOSPHORUS LEVEL 3.8 MG/DL (2.4-5.1); SODIUM LEVEL 144 MMOL/L (136-145)
== END ==
PROVIDERS: ATTEND Internal Medicine Nephrology
DX: N18.32 Chronic kidney disease, stage 3b (principal); N25.81 Secondary hyperparathyroidism of renal origin; D63.1 Anemia in chronic kidney disease

== ENCOUNTER → 2024-07-31 | Outpatient (REF) | payer MEDICARE, MEDICAID ==
[2024-07-31 11:48] LABS: EOS # 0.1 10^3/uL (0.0-0.5); EOS % 4.2 % (0.0-3.0); HEMATOCRIT 37.3 % (36.0-47.0); HEMOGLOBIN 12.1 g/dl (12.0-15.5); LYMPH # 1.3 10^3/uL (1.5-5.0); LYMPH % 43.4 % (24.0-44.0); MEAN CORPUSCULAR HEMOGLOBIN 30.5 pg (27.0-33.0); MEAN CORPUSCULAR HGB CONC 32.4 g/dl (32.0-36.5); MONO # 0.3 10^3/uL (0.0-0.8); MONO % 8.7 % (2.0-8.0); NEUTROPHILS # 1.2 10^3/uL (1.5-8.5); NEUTROPHILS % 42.4 % (36.0-66.0); PLATELET COUNT, AUTOMATED 118 10^3/uL (150-450); RED BLOOD COUNT 3.97 10^6/uL (4.00-5.40); WHITE BLOOD COUNT 2.9 10^3/uL (4.0-10.0)
[2024-07-31 12:23] LABS: IMMUNOGLOBULIN A 36.3 MG/DL (40-350); IMMUNOGLOBULIN G 720 MG/DL (650-1600)
[2024-07-31 12:24] LABS: ALBUMIN 2.9 G/DL (3.2-5.2); ALKALINE PHOSPHATASE 71 U/L (35-104); ALT/SGPT 14 U/L (7.0-40); AST/SGOT 17 U/L (<34); BILIRUBIN,TOTAL 0.4 MG/DL (0.3-1.2); BLOOD UREA NITROGEN 21 MG/DL (9-23); CALCIUM LEVEL 8.4 MG/DL (8.3-10.6); CARBON DIOXIDE LEVEL 30 MMOL/L (20-31); CHLORIDE LEVEL 107 MMOL/L (98-107); CREATININE FOR GFR 0.79 MG/DL (0.55-1.30); GLOMERULAR FILTRATION RATE > 60.0 (>39); GLUCOSE, FASTING 75 MG/DL (74-106); POTASSIUM SERUM 4.1 MMOL/L (3.5-5.1); SODIUM LEVEL 146 MMOL/L (136-145); TOTAL PROTEIN 5.5 G/DL (5.7-8.2)
[2024-07-31 12:36] LABS: IMMUNOGLOBULIN M < 21.0 MG/DL (50-300)
[2024-08-01 09:03] LABS: T P ELECTROPHORESIS SO 5.3 g/dL (6.1-8.1)
[2024-08-02 08:22] LABS: ALBUMIN SPEP 3.1 g/dL (3.8-4.8); ALPHA-1-GLOBULINS SO 0.2 g/dL (0.2-0.3); ALPHA-2-GLOBULINS SO 0.7 g/dL (0.5-0.9); BETA 2 GLOBULIN 0.3 g/dL (0.2-0.5); BETA-GLOBULIN SO 0.4 g/dL (0.4-0.6); GAMMA GLOBULINS SO 0.6 g/dL (0.8-1.7)
== END ==
PROVIDERS: ATTEND Internal Medicine Medical Oncology
DX: C90.00 Multiple myeloma not having achieved remission (principal)

== ENCOUNTER 2024-08-01 10:27 | Outpatient (CLI) | payer MEDICARE, MEDICAID ==
[~2024-08-01] VITALS: Ht 149.9 cm; Wt 61.8 kg
[~2024-08-01 10:27] MED LIST changes: +ALBUTEROL SULFATE 2.5MG/0.5ML INH NEB SOLN INH PRN; +EPINEPHrine INJ 1 MG/ML 1ML AMP IM PRN; +diphenhydrAMINE 50MG/ML VIAL IV PRN; +methylPREDNISolone 125MG 2ML VIAL IV PRN
[2024-08-01 10:30] VITALS: BP 131/60; O2SAT 95
[2024-08-01] MEDS: diphenhydrAMINE 25MG CAP PO ONE (11:00)
[2024-08-01] MEDS: ACETAMINOPHEN 650 MG PO ONE (11:00)
[2024-08-01] MEDS: IMMUNE GLOBULIN 10% 20 GM in IV 1 EA IV ONE (11:03)
[2024-08-01 11:30] VITALS: BP 129/66; O2SAT 96
[2024-08-01] MEDS ORDERED: SODIUM CHLORIDE 0.9% INJ 10 ML SYR IV PRN (11:45)
[2024-08-01 12:00] VITALS: BP 126/58; O2SAT 98
[2024-08-01 12:30] VITALS: BP 129/70; O2SAT 97
[2024-08-01 13:25] VITALS: BP 119/88; O2SAT 100
[2024-08-01] MEDS: SODIUM CHLORIDE 0.9% INJ 10 ML SYR IV SCH (13:28)
== END 2024-08-01 13:30 ==
LOC: M INFU 10:27
PROVIDERS: ATTEND Internal Medicine Medical Oncology
DX: D80.1 Nonfamilial hypogammaglobulinemia (principal); Z88.8 Allergy status to other drugs, medicaments and biological substances
CPT/HCPCS: 96365; 96366; J1459; J1642

== ENCOUNTER → 2024-08-09 | Outpatient (REF) | payer MEDICARE, MEDICAID ==
[~2024-08-09] MED LIST changes: -ALBUTEROL SULFATE 2.5MG/0.5ML INH NEB SOLN INH PRN; -EPINEPHrine INJ 1 MG/ML 1ML AMP IM PRN; -diphenhydrAMINE 50MG/ML VIAL IV PRN; -methylPREDNISolone 125MG 2ML VIAL IV PRN
[2024-08-09 09:47] LABS: INR 1.55; PROTHROMBIN TIME 18.8 SECONDS (12.5-14.5)
== END ==
PROVIDERS: ATTEND Family Medicine
DX: D64.9 Anemia, unspecified (principal); Z79.01 Long term (current) use of anticoagulants

== ENCOUNTER → 2024-08-10 | Outpatient (CLI) | payer MEDICARE, MEDICAID ==
[~2024-08-10] VITALS: Ht 149.9 cm; Wt 64.1 kg
[2024-08-10 10:53] VITALS: BP 133/63; O2SAT 97
== END ==
LOC: M PAL 09:38
PROVIDERS: ATTEND Physician Assistant
DX: Z51.5 Encounter for palliative care (principal)

== ENCOUNTER → 2024-08-23 | Outpatient (REF) | payer MEDICARE, MEDICAID ==
[2024-08-23 09:26] LABS: BASO % 1.2 % (0.0-1.0); EOS # 0.1 10^3/uL (0.0-0.5); EOS % 4.6 % (0.0-3.0); HEMATOCRIT 35.6 % (36.0-47.0); HEMOGLOBIN 11.2 g/dl (12.0-15.5); LYMPH # 0.9 10^3/uL (1.5-5.0); LYMPH % 38.2 % (24.0-44.0); MEAN CORPUSCULAR HEMOGLOBIN 30.2 pg (27.0-33.0); MEAN CORPUSCULAR HGB CONC 31.5 g/dl (32.0-36.5); MONO # 0.3 10^3/uL (0.0-0.8); MONO % 11.2 % (2.0-8.0); NEUTROPHILS # 1.1 10^3/uL (1.5-8.5); NEUTROPHILS % 44.4 % (36.0-66.0); PLATELET COUNT, AUTOMATED 105 10^3/uL (150-450); RED BLOOD COUNT 3.71 10^6/uL (4.00-5.40); WHITE BLOOD COUNT 2.4 10^3/uL (4.0-10.0)
[2024-08-23 09:55] LABS: ALBUMIN 2.7 G/DL (3.2-5.2); ALKALINE PHOSPHATASE 72 U/L (35-104); ALT/SGPT 17 U/L (7.0-40); AST/SGOT 20 U/L (<34); BILIRUBIN,TOTAL 0.6 MG/DL (0.3-1.2); BLOOD UREA NITROGEN 21 MG/DL (9-23); CALCIUM LEVEL 8.2 MG/DL (8.3-10.6); CARBON DIOXIDE LEVEL 32 MMOL/L (20-31); CHLORIDE LEVEL 106 MMOL/L (98-107); CREATININE FOR GFR 0.94 MG/DL (0.55-1.30); GLOMERULAR FILTRATION RATE > 60.0 (>39); GLUCOSE, FASTING 74 MG/DL (74-106); POTASSIUM SERUM 3.7 MMOL/L (3.5-5.1); SODIUM LEVEL 143 MMOL/L (136-145); TOTAL PROTEIN 5.2 G/DL (5.7-8.2)
== END ==
PROVIDERS: ATTEND Internal Medicine Medical Oncology
DX: C90.02 Multiple myeloma in relapse (principal)

== ENCOUNTER → 2024-08-28 | Outpatient (REF) | payer MEDICARE, MEDICAID ==
[2024-08-28 10:22] LABS: INR 1.7; PROTHROMBIN TIME 20.2 SECONDS (12.5-14.5)
== END ==
PROVIDERS: ATTEND Family Medicine
DX: Z79.01 Long term (current) use of anticoagulants (principal)

== ENCOUNTER → 2024-08-29 | Outpatient (REF) | payer MEDICARE, MEDICAID | LOC: M SFHCADAM 15:59 | PROVIDERS: ATTEND Family Medicine | DX: Z53.21 Procedure and treatment not carried out due to patient leaving prior to being seen by health care provider (principal); E03.9 Hypothyroidism, unspecified ==

== ENCOUNTER 2024-09-01 10:30 | Outpatient (CLI) | payer MEDICARE, MEDICAID ==
[~2024-09-01] VITALS: Ht 149.9 cm; Wt 61.8 kg
[2024-09-01] MEDS: diphenhydrAMINE 25MG PO PRIOR TO INFUSION PO ONE (10:29)
[2024-09-01] MEDS: ACETAMINOPHEN 650MG PO PRIOR TO INFUSION PO ONE (10:29)
[2024-09-01 10:30] VITALS: BP 109/59; O2SAT 95
[~2024-09-01 10:30] MED LIST changes: +ALBUTEROL SULFATE 2.5MG/0.5ML INH CONCENTRATE NEB SOLN INH PRN; +EPINEPHrine INJ 1 MG/ML 1ML AMP IM PRN; +NS (Normal Saline) 0.9% 1,000 ML IV SCH; +diphenhydrAMINE 50MG/ML VIAL IV PRN; +methylPREDNISolone 125MG 2ML VIAL IV PRN
[2024-09-01] MEDS: IMMUNE GLOBULIN 10% 20 GM in IV 1 EA IV ONE (11:00)
[2024-09-01 11:30] VITALS: BP 130/81; O2SAT 97
[2024-09-01 12:00] VITALS: BP 129/60; O2SAT 97
[2024-09-01 12:30] VITALS: BP 128/71; O2SAT 98
[2024-09-01] MEDS: SODIUM CHLORIDE 0.9% INJ 10 ML SYR IV PRN (13:33)
[2024-09-01 13:38] VITALS: BP 126/61; O2SAT 95
[2024-09-04] MEDS ORDERED: OXYC-141 PO (15:11)
== END 2024-09-01 14:10 ==
LOC: M INFU 10:30
PROVIDERS: ATTEND Internal Medicine Medical Oncology
DX: D80.1 Nonfamilial hypogammaglobulinemia (principal); Z88.8 Allergy status to other drugs, medicaments and biological substances
CPT/HCPCS: 96365; 96366; 96375; J1459; J1642

== ENCOUNTER → 2024-09-14 | Outpatient (CLI) | payer MEDICARE, MEDICAID ==
[~2024-09-14] MED LIST changes: -ALBUTEROL SULFATE 2.5MG/0.5ML INH CONCENTRATE NEB SOLN INH PRN; -EPINEPHrine INJ 1 MG/ML 1ML AMP IM PRN; -NS (Normal Saline) 0.9% 1,000 ML IV SCH; -diphenhydrAMINE 50MG/ML VIAL IV PRN; -methylPREDNISolone 125MG 2ML VIAL IV PRN
== END ==
LOC: M WHC 11:53
PROVIDERS: ATTEND Family Medicine
DX: Z12.31 Encounter for screening mammogram for malignant neoplasm of breast (principal)

== ENCOUNTER 2024-10-02 09:53 | Outpatient (CLI) | payer MEDICARE, MEDICAID ==
[~2024-10-02] VITALS: Ht 149.9 cm; Wt 59.1 kg
[~2024-10-02 09:53] MED LIST changes: -LEVO50CA PO; +LEVO50CA2 PO; +MORP-138 PO; -MORP15TASA PO; -PREG25CA PO; +PREG25CA63 PO
[2024-10-02 10:25] VITALS: BP 128/58; O2SAT 98
[2024-10-02] MEDS ORDERED: EPINEPHrine INJ 1 MG/ML 1ML AMP IM PRN (10:30)
[2024-10-02] MEDS ORDERED: diphenhydrAMINE 50MG/ML VIAL IV PRN (10:30)
[2024-10-02] MEDS ORDERED: NS (Normal Saline) 0.9% 1,000 ML IV SCH (10:30)
[2024-10-02] MEDS ORDERED: methylPREDNISolone 125MG 2ML VIAL IV PRN (10:30)
[2024-10-02] MEDS ORDERED: ALBUTEROL SULFATE 2.5MG/0.5ML INH CONCENTRATE NEB SOLN INH PRN (10:30)
[2024-10-02] MEDS: ACETAMINOPHEN 650MG PO PRIOR TO INFUSION PO ONE (10:38)
[2024-10-02] MEDS: diphenhydrAMINE 25MG PO PRIOR TO INFUSION PO ONE (10:38)
[2024-10-02] MEDS: IMMUNE GLOBULIN 10% 20 GM in IV 1 EA IV ONE (11:17)
[2024-10-02 11:30] VITALS: BP 111/58; O2SAT 99
[2024-10-02 12:00] VITALS: BP 115/64; O2SAT 99
[2024-10-02 12:30] VITALS: BP 122/70; O2SAT 98
[2024-10-02] MEDS ORDERED: SODIUM CHLORIDE 0.9% INJ 10 ML SYR IV PRN (13:45)
[2024-10-02] MEDS: SODIUM CHLORIDE 0.9% INJ 10 ML SYR IV SCH (13:51)
[2024-10-02 14:00] VITALS: BP 120/58; O2SAT 100
== END 2024-10-02 14:00 | disposition home or self-care (01) ==
LOC: M INFU 09:53
PROVIDERS: ATTEND Internal Medicine Medical Oncology
DX: D80.1 Nonfamilial hypogammaglobulinemia (principal); Z88.8 Allergy status to other drugs, medicaments and biological substances
CPT/HCPCS: 96365; 96366; J1459; J1642

== ENCOUNTER → 2024-10-10 | Outpatient (CLI) | payer MEDICARE, MEDICAID ==
[~2024-10-10] VITALS: Ht 149.9 cm; Wt 65.8 kg
[2024-10-10 10:38] VITALS: BP 107/60; O2SAT 96
== END ==
LOC: M PAL 10:24
PROVIDERS: ATTEND Physician Assistant
DX: Z51.5 Encounter for palliative care (principal); C90.00 Multiple myeloma not having achieved remission; Z79.891 Long term (current) use of opiate analgesic; Z79.899 Other long term (current) drug therapy; Z88.5 Allergy status to narcotic agent; Z88.8 Allergy status to other drugs, medicaments and biological substances

== ENCOUNTER → 2024-11-06 | Outpatient (REF) | payer MEDICARE, MEDICAID ==
[~2024-11-06] MED LIST changes: +ACYC-438 PO; -ACYC1TAB PO; +AMMO12CR4 TOP; -AMMO12CR7 TOP
[2024-11-06 09:26] LABS: ALBUMIN 2.8 G/DL (3.2-5.2); CALCIUM LEVEL 8.1 MG/DL (8.3-10.6); CREATININE FOR GFR 0.77 MG/DL (0.55-1.30); GLOMERULAR FILTRATION RATE 79.9 (>39); PHOSPHORUS LEVEL 2.7 MG/DL (2.4-5.1); POTASSIUM SERUM 3.6 MMOL/L (3.5-5.1)
[2024-11-06 09:30] LABS: BASO % 0.7 % (0.0-1.0); EOS # 0.1 10^3/uL (0.0-0.5); EOS % 1.8 % (0.0-3.0); HEMATOCRIT 35.6 % (36.0-47.0); HEMOGLOBIN 11.6 g/dl (12.0-15.5); LYMPH # 0.9 10^3/uL (1.5-5.0); LYMPH % 33.8 % (24.0-44.0); MEAN CORPUSCULAR HEMOGLOBIN 30.4 pg (27.0-33.0); MEAN CORPUSCULAR HGB CONC 32.6 g/dl (32.0-36.5); MEAN CORPUSCULAR VOLUME 93.2 fl (80.0-96.0); MONO # 0.3 10^3/uL (0.0-0.8); MONO % 10.4 % (2.0-8.0); NEUTROPHILS # 1.5 10^3/uL (1.5-8.5); NEUTROPHILS % 52.9 % (36.0-66.0); PLATELET COUNT, AUTOMATED 106 10^3/uL (150-450); RED BLOOD COUNT 3.82 10^6/uL (4.00-5.40); WHITE BLOOD COUNT 2.8 10^3/uL (4.0-10.0)
[2024-11-06 09:48] LABS: PTH INTACT 130.5 PG/ML (18.5-88.0)
== END ==
PROVIDERS: ATTEND Internal Medicine Nephrology
DX: N18.32 Chronic kidney disease, stage 3b (principal); N25.81 Secondary hyperparathyroidism of renal origin; D63.1 Anemia in chronic kidney disease

== ENCOUNTER → 2024-11-17 | Outpatient (REF) | payer MEDICARE, MEDICAID ==
[2024-11-17 08:02] LABS: INR 2.34; PROTHROMBIN TIME 25.7 SECONDS (12.5-14.5)
== END ==
PROVIDERS: ATTEND Family Medicine
DX: I10 Essential (primary) hypertension (principal); Z79.01 Long term (current) use of anticoagulants

== ENCOUNTER 2024-12-04 10:35 | Outpatient (CLI) | payer MEDICARE, MEDICAID ==
[~2024-12-04] VITALS: Ht 139.7 cm; Wt 66.8 kg
[~2024-12-04 10:35] MED LIST changes: +ALBUTEROL SULFATE 2.5 MG/0.5 ML INH CONCENTRATE NEB SOLN INH PRN; +EPINEPHrine INJ 1 MG/ML 1ML AMP IM PRN; +diphenhydrAMINE 50 MG/ML VIAL IV PRN
[2024-12-04] MEDS: ACETAMINOPHEN 650 MG PO ONE (10:53)
[2024-12-04 10:54] VITALS: BP 135/64; O2SAT 95
[2024-12-04] MEDS ORDERED: NS (Normal Saline) 0.9% 1,000 ML IV SCH (11:00)
[2024-12-04] MEDS: IMMUNE GLOBULIN 10% 20 GM in IV 1 EA IV ONE (11:09)
[2024-12-04] MEDS: IMMUNE GLOBULIN 10% 10 GM in IV 1 EA IV ONE (11:12)
[2024-12-04 11:45] VITALS: BP 124/72; O2SAT 97
[2024-12-04 12:15] VITALS: BP 123/60; O2SAT 96
[2024-12-04 12:45] VITALS: BP 122/68; O2SAT 97
[2024-12-04] MEDS: HEPARIN LOCK FLUSH 100 UNITS/ML 3 ML SYRINGE IV PRN (14:41)
[2024-12-04] MEDS: SODIUM CHLORIDE 0.9% INJ 10 ML SYR IV PRN (14:41)
[2024-12-04 15:12] VITALS: BP 114/92; O2SAT 98
== END 2024-12-04 15:13 | disposition home or self-care (01) ==
LOC: M INFU 10:35
PROVIDERS: ATTEND Internal Medicine Medical Oncology
DX: D80.1 Nonfamilial hypogammaglobulinemia (principal); Z88.8 Allergy status to other drugs, medicaments and biological substances

== ENCOUNTER → 2024-12-15 | Outpatient (REF) | payer MEDICARE, MEDICAID ==
[~2024-12-15] MED LIST changes: -ALBUTEROL SULFATE 2.5 MG/0.5 ML INH CONCENTRATE NEB SOLN INH PRN; -EPINEPHrine INJ 1 MG/ML 1ML AMP IM PRN; -diphenhydrAMINE 50 MG/ML VIAL IV PRN
[2024-12-15 08:11] LABS: INR 2.05
== END ==
PROVIDERS: ATTEND Family Medicine
DX: Z79.01 Long term (current) use of anticoagulants (principal)

== ENCOUNTER → 2024-12-18 | Outpatient (CLI) | payer MEDICARE, MEDICAID ==
[~2024-12-18] VITALS: Ht 149.9 cm; Wt 64.2 kg
[2024-12-18 10:40] VITALS: BP 105/63; O2SAT 98
== END ==
LOC: M PAL 10:07
PROVIDERS: ATTEND Physician Assistant
DX: Z51.5 Encounter for palliative care (principal); C90.00 Multiple myeloma not having achieved remission; R52 Pain, unspecified; G62.9 Polyneuropathy, unspecified; Z79.891 Long term (current) use of opiate analgesic; Z79.899 Other long term (current) drug therapy; Z88.8 Allergy status to other drugs, medicaments and biological substances

== ENCOUNTER → 2025-01-12 | Outpatient (REF) | payer MEDICARE, MEDICAID ==
[~2025-01-12] MED LIST changes: +DULO1CAP5 PO; +DULO1CAP6 PO; +DULO30CA9 PO; +LIDOCAIN TOP; +METH-1100 PO; -METH-855 PO; +POTA10CA70 PO
[2025-01-12 09:09] LABS: INR 2.54
== END ==
PROVIDERS: ATTEND Family Medicine
DX: I10 Essential (primary) hypertension (principal); Z79.01 Long term (current) use of anticoagulants

== ENCOUNTER → 2025-01-30 | Outpatient (CLI) | payer MEDICARE, MEDICAID ==
[~2025-01-30] VITALS: Ht 149.9 cm; Wt 64.8 kg
[~2025-01-30] MED LIST changes: -DULO1CAP5 PO; -DULO1CAP6 PO; -METH-1100 PO; +METH-855 PO
[2025-01-30 11:39] VITALS: BP 124/62; O2SAT 98
== END ==
LOC: M PAL 11:09
PROVIDERS: ATTEND Physician Assistant
DX: Z51.5 Encounter for palliative care (principal); C90.00 Multiple myeloma not having achieved remission; Z79.891 Long term (current) use of opiate analgesic; Z88.5 Allergy status to narcotic agent; Z88.6 Allergy status to analgesic agent; Z79.899 Other long term (current) drug therapy

== ENCOUNTER → 2025-02-09 | Outpatient (REF) | payer MEDICARE, MEDICAID ==
[~2025-02-09] MED LIST changes: +DULO1CAP5 PO; +DULO1CAP6 PO; +METH-1100 PO; -METH-855 PO
[2025-02-09 11:37] LABS: INR 2.79
== END ==
PROVIDERS: ATTEND Family Medicine
DX: I10 Essential (primary) hypertension (principal); Z79.01 Long term (current) use of anticoagulants

== ENCOUNTER → 2025-03-01 | Outpatient (CLI) | payer MEDICARE, MEDICAID | LOC: M PAL 07:55 | PROVIDERS: ATTEND Physician Assistant | DX: Z51.5 Encounter for palliative care (principal); C90.02 Multiple myeloma in relapse; Z79.891 Long term (current) use of opiate analgesic; Z88.5 Allergy status to narcotic agent; Z88.6 Allergy status to analgesic agent; Z79.899 Other long term (current) drug therapy; Z79.83 Long term (current) use of bisphosphonates | CPT/HCPCS: G0463 ×3 ==

== ENCOUNTER → 2025-03-09 | Outpatient (REF) | payer MEDICARE, MEDICAID ==
[~2025-03-09] MED LIST changes: +LIDO5TD TOP
[2025-03-09 11:46] LABS: INR 2.77
== END ==
PROVIDERS: ATTEND Family Medicine
DX: I10 Essential (primary) hypertension (principal); Z79.01 Long term (current) use of anticoagulants

== ENCOUNTER → 2025-03-21 | Outpatient (REF) | payer MEDICARE, MEDICAID ==
[~2025-03-21] MED LIST changes: -LIDO5TD TOP
[2025-03-21 17:20] LABS: INR 3.8
== END ==
LOC: M SFHCADAM 15:04
PROVIDERS: ATTEND Family Medicine
DX: Z79.01 Long term (current) use of anticoagulants (principal)

== ENCOUNTER → 2025-04-02 | Outpatient (REF) | payer MEDICARE, MEDICAID ==
[~2025-04-02] MED LIST changes: -BACTDSTA PO; +LIDO1ADH20 TD; +LIDO5TD TOP; +OXYC15TA66 PO; +SULF-8 PO; +[UNRECOGNIZED DRUG - CODE] TOP
[2025-04-02 12:34] LABS: BASO # 0.0 10^3/uL (0.0-0.2); BASO % 1.0 % (0.0-1.0); EOS # 0.2 10^3/uL (0.0-0.5); EOS % 4.5 % (0.0-3.0); LYMPH # 1.1 10^3/uL (1.5-5.0); LYMPH % 26.4 % (24.0-44.0); MONO # 0.3 10^3/uL (0.0-0.8); MONO % 7.6 % (2.0-8.0); NEUTROPHILS # 2.5 10^3/uL (1.5-8.5); NEUTROPHILS % 60.0 % (36.0-66.0); PLATELET COUNT, AUTOMATED 145 10^3/uL (150-450)
[2025-04-02 13:16] LABS: CALCIUM LEVEL 8.6 MG/DL (8.3-10.6); CARBON DIOXIDE LEVEL 30.0 MMOL/L (20-31); CHLORIDE LEVEL 99.0 MMOL/L (98-107); CREATININE FOR GFR 0.83 MG/DL (0.55-1.30); GLOMERULAR FILTRATION RATE 72.6 (>39); MAGNESIUM LEVEL 1.8 MG/DL (1.8-2.4); PHOSPHORUS LEVEL 2.1 MG/DL (2.4-5.1); POTASSIUM SERUM 3.6 MMOL/L (3.5-5.1); PTH INTACT 115.5 PG/ML (18.5-88.0); SODIUM LEVEL 138.0 MMOL/L (136-145)
== END ==
PROVIDERS: ATTEND Internal Medicine Nephrology
DX: N18.32 Chronic kidney disease, stage 3b (principal); N25.81 Secondary hyperparathyroidism of renal origin; D63.1 Anemia in chronic kidney disease; E83.42 Hypomagnesemia

== ENCOUNTER → 2025-04-04 | Outpatient (REF) | payer MEDICARE, MEDICAID ==
[2025-04-04 13:12] LABS: INR 2.43
== END ==
PROVIDERS: ATTEND Family Medicine
DX: Z79.01 Long term (current) use of anticoagulants (principal)

== ENCOUNTER → 2025-04-05 | Outpatient (CLI) | payer MEDICARE, MEDICAID ==
[~2025-04-05] VITALS: Ht 149.9 cm; Wt 59.7 kg
[~2025-04-05] MED LIST changes: +BACTDSTA PO; -LIDO1ADH20 TD; -OXYC15TA66 PO; -SULF-8 PO; -[UNRECOGNIZED DRUG - CODE] TOP
[2025-04-05 10:34] VITALS: BP 132/77; O2SAT 97
== END ==
LOC: M PAL 09:57
PROVIDERS: ATTEND Physician Assistant
DX: Z51.5 Encounter for palliative care (principal); C90.00 Multiple myeloma not having achieved remission; Z79.891 Long term (current) use of opiate analgesic; Z88.5 Allergy status to narcotic agent; Z79.899 Other long term (current) drug therapy; Z79.83 Long term (current) use of bisphosphonates

== ENCOUNTER → 2025-04-06 | Outpatient (REF) | payer MEDICARE, MEDICAID ==
[~2025-04-06] MED LIST changes: -BACTDSTA PO; +LIDO1ADH20 TD; +OXYC15TA66 PO; +SULF-8 PO; +[UNRECOGNIZED DRUG - CODE] TOP
[2025-04-06 12:10] LABS: BASO # 0.0 10^3/uL (0.0-0.2); BASO % 0.9 % (0.0-1.0); EOS # 0.1 10^3/uL (0.0-0.5); EOS % 2.6 % (0.0-3.0); LYMPH # 0.9 10^3/uL (1.5-5.0); LYMPH % 19.8 % (24.0-44.0); MONO # 0.4 10^3/uL (0.0-0.8); MONO % 8.4 % (2.0-8.0); NEUTROPHILS # 2.9 10^3/uL (1.5-8.5); NEUTROPHILS % 68.1 % (36.0-66.0); PLATELET COUNT, AUTOMATED 156 10^3/uL (150-450)
[2025-04-06 12:41] LABS: CALCIUM LEVEL 9.0 MG/DL (8.3-10.6); CARBON DIOXIDE LEVEL 35.0 MMOL/L (20-31); CHLORIDE LEVEL 98.0 MMOL/L (98-107); CREATININE FOR GFR 0.92 MG/DL (0.55-1.30); GLOMERULAR FILTRATION RATE 64.1 (>39); MAGNESIUM LEVEL 2.1 MG/DL (1.8-2.4); PHOSPHORUS LEVEL 3.3 MG/DL (2.4-5.1); POTASSIUM SERUM 3.8 MMOL/L (3.5-5.1); PTH INTACT 45.8 PG/ML (18.5-88.0); SODIUM LEVEL 142.0 MMOL/L (136-145)
== END ==
PROVIDERS: ATTEND Internal Medicine Nephrology
DX: N18.32 Chronic kidney disease, stage 3b (principal); N25.81 Secondary hyperparathyroidism of renal origin; D63.1 Anemia in chronic kidney disease; E83.42 Hypomagnesemia

== ENCOUNTER 2025-04-10 08:07 | Outpatient (CLI) | payer MEDICARE, MEDICAID ==
[~2025-04-10] VITALS: Ht 149.9 cm; Wt 61.3 kg
[~2025-04-10 08:07] MED LIST changes: +ALBUTEROL SULFATE 2.5 MG/0.5 ML INH CONCENTRATE NEB SOLN INH PRN; +BACTDSTA PO; +EPINEPHrine INJ 1 MG/ML 1ML AMP IM PRN; -LIDO1ADH20 TD; +NS (Normal Saline) 0.9% 1,000 ML IV SCH; -OXYC15TA66 PO; -SULF-8 PO; -[UNRECOGNIZED DRUG - CODE] TOP; +diphenhydrAMINE 50 MG/ML VIAL IV PRN
[2025-04-10] MEDS: diphenhydrAMINE 25MG PO PRIOR TO INFUSION PO ONE (08:47)
[2025-04-10] MEDS: ACETAMINOPHEN 650MG PO PRIOR TO INFUSION PO ONE (08:50)
[2025-04-10] MEDS: IMMUNE GLOBULIN 10% 10 GM in IV 1 EA IV ONE (08:51)
[2025-04-10] MEDS: IMMUNE GLOBULIN 10% 5 GM in IV 1 EA IV ONE (08:52)
[2025-04-10 09:01] VITALS: BP 108/55; O2SAT 98
[2025-04-10 10:06] VITALS: BP 125/64; O2SAT 97
[2025-04-10 10:34] VITALS: BP 143/66; O2SAT 100
[2025-04-10] MEDS: HEPARIN LOCK FLUSH 100 UNITS/ML 3 ML SYRINGE IV PRN (11:19)
[2025-04-10] MEDS: SODIUM CHLORIDE 0.9% INJ 10 ML SYR IV PRN (11:20)
[2025-04-10 11:25] VITALS: BP 142/67; O2SAT 97
== END 2025-04-10 11:25 | disposition home or self-care (01) ==
LOC: M INFU 08:07
PROVIDERS: ATTEND Internal Medicine Medical Oncology
DX: D80.1 Nonfamilial hypogammaglobulinemia (principal); Z88.8 Allergy status to other drugs, medicaments and biological substances
CPT/HCPCS: 96365; 96366; J1459; J1642

== ENCOUNTER 2025-05-08 08:21 | Outpatient (CLI) | payer MEDICARE, MEDICAID ==
[~2025-05-08] VITALS: Ht 149.9 cm; Wt 61.0 kg
[~2025-05-08 08:21] MED LIST changes: -BACTDSTA PO; +OXYC15TA66 PO; +SULF-8 PO
[2025-05-08] MEDS: diphenhydrAMINE 25MG PO PRIOR TO INFUSION PO ONE (08:51)
[2025-05-08] MEDS: ACETAMINOPHEN 650MG PO PRIOR TO INFUSION PO ONE (08:51)
[2025-05-08] MEDS: IMMUNE GLOBULIN 10% 10 GM in IV 1 EA IV ONE (08:53)
[2025-05-08] MEDS: IMMUNE GLOBULIN 10% 5 GM in IV 1 EA IV ONE (08:54)
[2025-05-08 09:00] VITALS: BP 126/76; O2SAT 99
[2025-05-08 09:30] VITALS: BP 121/71; O2SAT 98
[2025-05-08 10:00] VITALS: BP 130/66; O2SAT 97
[2025-05-08 10:30] VITALS: BP 133/67; O2SAT 96
[2025-05-08 11:00] VITALS: BP 135/62; O2SAT 98
[2025-05-08] MEDS: SODIUM CHLORIDE 0.9% INJ 10 ML SYR IV SCH (11:01)
[2025-05-08] MEDS: HEPARIN LOCK FLUSH 100 UNITS/ML 3 ML SYRINGE IV SCH (11:02)
== END 2025-05-08 11:30 | disposition home or self-care (01) ==
LOC: M INFU 08:21
PROVIDERS: ATTEND Internal Medicine Medical Oncology
DX: D80.0 Hereditary hypogammaglobulinemia (principal); Z88.8 Allergy status to other drugs, medicaments and biological substances
CPT/HCPCS: 96365; 96366; J1459; J1642

== ENCOUNTER → 2025-05-09 | Outpatient (REF) | payer MEDICARE, MEDICAID ==
[~2025-05-09] MED LIST changes: -ALBUTEROL SULFATE 2.5 MG/0.5 ML INH CONCENTRATE NEB SOLN INH PRN; -EPINEPHrine INJ 1 MG/ML 1ML AMP IM PRN; +LIDO1ADH20 TD; -NS (Normal Saline) 0.9% 1,000 ML IV SCH; +[UNRECOGNIZED DRUG - CODE] TOP; -diphenhydrAMINE 50 MG/ML VIAL IV PRN
[2025-05-09 13:45] LABS: INR 4.83
== END ==
PROVIDERS: ATTEND Family Medicine
DX: Z79.01 Long term (current) use of anticoagulants (principal)

== ENCOUNTER → 2025-05-16 | Outpatient (REF) | payer MEDICARE, MEDICAID | PROVIDERS: ATTEND Family Medicine | DX: Z79.01 Long term (current) use of anticoagulants (principal); Z53.8 Procedure and treatment not carried out for other reasons ==

== ENCOUNTER → 2025-05-30 | Outpatient (RCR) | payer MEDICARE, MEDICAID | LOC: M ONCR 05-16 10:37 | PROVIDERS: ATTEND General Practice | DX: Z51.0 Encounter for antineoplastic radiation therapy (principal); C90.00 Multiple myeloma not having achieved remission ==